=== PATIENT | female | born 1925 | race Caucasian/White ===

== ENCOUNTER 2017-02-03 11:00 | Inpatient (IN) ==
--- OUTSIDE RECORDS SUMMARY | 2017-02-03 11:21 | External Medical Summary | Summary of Care ---
:1925 Author Name Richard Guardado M.D. Address Unavailable Unavailable , Care Team Providers Name Role Phone Debby Jade, Richard Unavailable Unavailable Elizabeth Woodard M.D. Unavailable Unavailable Luly Sandoval M.D. Unavailable Unavailable [place]lette, Richard Unavailable Unavailable Unavailable Unavailable Unavailable Functional Status Functional Status Health Issues Name Dates Details Functional status health issues are not documented Status: Cognitive Status Health Issues Name Dates Details Cognitive status health issues are not documented Status: Problems Name Dates Details Fainting (780.2, R55) Status: Active Transient ischemic attack (435.9, G45.9) Status: Active Callus (700, L84) Status: Active EP (epilepsy) (345.90, G40.909) Status: Active Squamous cell carcinoma of skin of cheek (173.32, C44.329) Status: Active Actinic keratosis (702.0, L57.0) Status: Active Stomach pain (536.8, R10.9) Status: Active Hypertension (401.9, I10) Status: Active Osteoporosis (733.00, M81.0) Status: Active Glaucoma (365.9, H40.9) Status: Active Macular degeneration (362.50, H35.30) Status: Active Bowel movement symptom (787.99, R19.8) Status: Active Nausea (787.02, R11.0) Status: Active Acute leg pain, right (729.5, M79.604) Status: Active Thoracic spine pain (724.1, M54.6) Status: Active Low back pain (724.2, M54.5) Status: Active Radiculopathy (729.2, M54.10) Status: Active Ruptured sebaceous cyst (706.2, L72.0) Status: Active Dyslipidemia (272.4, E78.5) Status: Active Seborrheic keratosis (702.19, L82.1) Status: Active Epidermal inclusion cyst (706.2, L72.0) Status: Active Diarrhea (787.91, R19.7) Status: Active Insomnia (780.52, G47.00) Status: Active 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 Quantity: 30 Refills: 6 Richard Guardado M.D. Start 12-Aug-2011 Active Aspirin 81 MG TABS TAKE 1 TABLET DAILY. Refills: 0 Start 12-Aug-2011 Active LevETIRAcetam 500 MG Oral Tablet TAKE 1 TABLET BY MOUTH TWICE DAILY MUST MAKE APPT TO GET MORE REFILLS Quantity: 60 Refills: 0 Charlie Woodard M.D. Start 11-Feb-2016 Active Melatonin 1 MG Oral Tablet TAKE DIRECTED. Refills: 0 Start 11-Jun-2012 Active Tylenol Extra Strength 500 MG Oral Tablet TAKE 1 TABLET EVERY 4 TO 6 HOURS NEEDED. Refills: 0 Start 11-Jun-2012 Active B-12 500 MCG Oral Tablet Refills: 0 Start 01-Aug-2013 Active Multivitamins Oral Capsule TAKE 1 CAPSULE DAILY. Refills: 0 Start 01-Aug-2013 Active Calcium + D 500-1000-40 MG-UNT-MCG Oral Tablet Chewable Refills: 0 Start 01-Aug-2013 Active Metoprolol Succinate ER 25 MG Oral Tablet Extended Release 24 Hour TAKE 1 TABLET BY MOUTH EVERY NIGHT AT BEDTIME Quantity: 30 Refills: 11 Richard Guardado M.D. Start 22-Feb-2016 Active Prolia 60 MG/ML Subcutaneous Solution INJECT SUBCUTANEOUSLY 60 MG / 1 ML EVERY 6 MONTHS Quantity: 1 Refills: 0 Debby Villa.Indigo., Richard Start Active Clopidogrel Bisulfate 75 MG Oral Tablet TAKE 1 TABLET DAILY. Quantity: 30 Refills: 6 Debby M.D., Richard Start 01-Jan-2016 Active Sulfamethoxazole-Trimethoprim 800-160 MG Oral Tablet TAKE 1 TABLET TWICE DAILY UNTIL FINISHED. Quantity: 14 Refills: 0 Lori Jade, Dale S Start 01-Jan-2016 Active Meloxicam 7.5 MG Oral Tablet TAKE 1 TABLET DAILY WITH FOOD. Quantity: 30 Refills: 1 Debby M.D., Richard Start 14-Feb-2016 Active Allergies and Adverse Reactions Name Dates Details Amoxicillin TABS (Allergy) Status: Active codeine (Allergy) Status: Active Contrast Media Ready-Box MISC (Allergy) Status: Active promethazine (Allergy) Status: Active Past Medical History Name Dates Details Glaucoma (365.9, H40.9) Status: Active Hypertension (401.9, I10) Status: Active Macular degeneration (362.50, H35.30) Status: Active Osteoporosis (733.00, M81.0) Status: Active History of cardiac disorder (V12.50, Z86.79) Status: Resolved History of deep venous thrombosis (V12.51, Z86.718) Status: Resolved History of Dementia (294.20, F03.90) Status: Resolved History of Diverticulosis (562.10, K57.90) Status: Resolved History of Fracture of metatarsal, closed (825.25, S92.309A) Status: Resolved History of hypothyroidism (V12.29, Z86.39) Status: Resolved History of iron deficiency anemia (V12.3, Z86.2) Status: Resolved History of skin cancer (V10.83, Z85.828) Status: Resolved History of stroke (V12.54, Z86.73) Status: Resolved History of syncope (V15.89, Z87.898) Status: Resolved History of transient cerebral ischemia (V12.54, Z86.73) Status: Resolved Procedures Procedure Dates Details History of Hysterectomy History of Percutaneous Vertebral Augmentation Kyphoplasty History of Removal Of Tubal Procedures not documented Immunization Name Dates Details Immunizations not documented Family History natural son Name Dates Details Family history of Diabetes type 2, controlled (250.00, E11.9) Status: Active great grandmother Name Dates Details Family history of malignant neoplasm of breast (V16.3, Z80.3) Status: Active Mother Name Dates Details Family history of transient ischemic attacks (V17.1, Z82.3) Status: Active Family history of goiter (V18.19, Z83.49) Status: Active Father Name Dates Details Family history of myocardial infarction (V17.3, Z82.49) Status: Active Sister Name Dates Details Family history of Colon cancer (153.9, C18.9) Status: Active Brother Name Dates Details Family history of cerebrovascular disorder (V17.1, Z82.49) Status: Active Family history of peripheral vascular disease (V17.49, Z82.49) Status: Active Social History Name Dates Details - Status: Smoking Status Name Dates Details Unknown if ever smoked Vital Signs Date Test Result Details 14-Feb-2016 14:23 BP Systolic 122 mm[Hg] Status: Comments: Location: RUE; Position: Sitting BP Diastolic 58 mm[Hg] Status: Comments: Location: RUE; Position: Sitting Temperature 97.7 f Status: Comments: Method: Tympanic Heart Rate 43 /min Status: Comments: Location: ; Physical Findings 99 Status: Comments: O2 Saturation Results Date Description Value Details Results not documented Plan of Care Name Dates Details Planned Observations Planned Goals not documented Planned Encounters Appointment; Provider: Mirella Kidd M.D. On 29-Jul-2016 13:30 Appointment; Provider: Dale Sandoval M.D. On 16-May-2016 10:30 Interventions Provided Medication ChangesMetoprolol Succinate ER 25 MG Oral Tablet Extended Release 24 Hour - Renew Instructions Name Dates Details Instructions not documented Encounters Appointment; Richard Guardado M.D. On 14-Feb-2016 Encounter Diagnosis: Problem not documented 14:15 Appointment; Dale Sandoval M.D. On 18-Jan-2016 Encounter Diagnosis: Problem not documented 09:45 Appointment; Mirella Kidd M.D. On 01-Jan-2016 Encounter Diagnosis: Problem not documented 16:00 Appointment; Richard Guardado M.D. On 25-Dec-2015 Encounter Diagnosis: Problem not documented 16:15 Appointment; Mirella Kidd M.D. On 07-Dec-2015 Encounter Diagnosis: Problem not documented 08:45 Appointment; Omar Castro M.D. On 30-Nov-2015 Encounter Diagnosis: Problem not documented 13:45 Appointment; Richard Guardado M.D. On 23-Nov-2015 Encounter Diagnosis: Problem not documented 11:30 Appointment; Omar Castro M.D. On Encounter Diagnosis: Problem not documented 11:30 Appointment; Wili, Daniel On Encounter Diagnosis: Problem not documented 11:00 Appointment; Richard Guardado M.D. On Encounter Diagnosis: Problem not documented 14:45 Appointment; Dale Sandoval M.D. On Encounter Diagnosis: Problem not documented 10:30 Appointment; Omar Castro M.D. On Encounter Diagnosis: Problem not documented 15:00 Appointment; Dane Guardado M.D. On Encounter Diagnosis: Problem not documented 14:00 Appointment; Richard Guardado M.D. On Encounter Diagnosis: Problem not documented 14:45 Appointment; Richard Guardado M.D. On Encounter Diagnosis: Problem not documented 14:15 Appointment; Richard Guardado M.D. On 20-Aug-2015 Encounter Diagnosis: Problem not documented 15:15 Appointment; Dale Sandoval M.D. On 04-May-2015 Encounter Diagnosis: Problem not documented 09:00 Appointment; Dale Sandoval M.D. On Encounter Diagnosis: Problem not documented 18:30 Appointment; Dale Sandoval M.D. On Encounter Diagnosis: Problem not documented 08:30
--- OUTSIDE RECORDS SUMMARY | 2017-02-03 11:21 | External Medical Summary | Summary of Care ---
:1925 Author Name Richard Guardado M.D. Address Unavailable Unavailable , Care Team Providers Name Role Phone Debby Jade, Richard Unavailable Unavailable Elizabeth Woodard M.D. Unavailable Unavailable RalphRichard cui Primary Care Provider Unavailable Unavailable Unavailable Unavailable Functional Status Functional [...] Status: Active Osteoporosis (733.00, M81.0) Status: Active Macular degeneration (362.50, H35.30) Status: Active Glaucoma (365.9, H40.9) Status: Active Bowel movement symptom (787.99, R19.8) Status: Active Nausea (787.02, R11.0) Status: Active Acute leg pain, right (729.5, M79.604) Status: Active Thoracic spine pain (724.1, M54.6) Status: Active Low back pain (724.2, M54.5) Status: Active Radiculopathy (729.2, M54.10) Status: Active Ruptured Sebaceous Cyst (706.2, L72.0) Status: Active Abdominal pain (789.00, R10.9) Status: Active Dyslipidemia (272.4, E78.5) Status: Active Seborrheic keratosis (702.19, L82.1) Status: Active Epidermal inclusion cyst (706.2, L72.0) Status: Active Medications Name Dates Details Lovastatin 40 MG Oral Tablet TAKE 1 TABLET AT BEDTIME. Quantity: 90 Refills: 3 Richard Guardado M.D. Started 12-Aug-2011 ActiveAspirin 81 MG TABS TAKE 1 TABLET DAILY. Refills: 0 Started 12-Aug-2011 ActiveLevETIRAcetam 500 MG Oral Tablet TAKE 1 TABLET BY MOUTH TWICE DAILYABSOLUTELY MUST MAKE AN APPOINTMENT Quantity: 30 Refills: 0 Charlie Woodard M.D. Started ActiveLopressor 50 MG Oral Tablet Take 1/2 tab daily Refills: 0 Started 11-Jun-2012 ActiveMelatonin 1 MG Oral Tablet TAKE DIRECTED. Refills: 0 Started 11-Jun-2012 ActiveTylenol Extra Strength 500 MG Oral Tablet TAKE 1 TABLET EVERY 4 TO 6 HOURS NEEDED. Refills: 0 Started 11-Jun-2012 ActiveB-12 500 MCG Oral Tablet Refills: 0 Started 01-Aug-2013 ActiveMultivitamins Oral Capsule TAKE 1 CAPSULE DAILY. Refills: 0 Started 01-Aug-2013 ActiveCalcium + D 500-1000-40 MG-UNT-MCG Oral Tablet Chewable Refills: 0 Started 01-Aug-2013 ActiveMetoprolol Succinate ER 25 MG Oral Tablet Extended Release 24 Hour TAKE 1 TABLET DAILY. Refills: 0 Richard Guardado M.D. Started 20-Aug-2015 ActiveProlia 60 MG/ML Subcutaneous Solution INJECT SUBCUTANEOUSLY 60 MG / 1 ML EVERY 6 MONTHS Quantity: 1 Refills: 0 Richard Guardado M.D. Started Active Allergies and Adverse Reactions Name Dates Details Amoxicillin TABS Status: Active codeine Status: Active Contrast Media Ready-Box MISC Status: Active Past Medical History Name Dates [...] Augmentation Kyphoplasty History of Removal Of Tubal Upper Endoscopy ( EGD) Ordered: Immunization Name Dates Details Immunizations not documented [...] Status: Active Social History Name Dates Details Smoking StatusUnknown if ever smoked Vital Signs Date Test Result Details 14:02 BP Systolic 132 mm[Hg] Status: BP Diastolic 60 mm[Hg] Status: Temperature 97.9 f Status: Heart Rate 69 /min Status: Weight 117 lb Status: O2 SAT 93 % Status: Body Mass Index Calculated 22.85 kg/m2 Status: Body Surface Area Calculated 1.49 m2 Status: 15:21 BP Systolic 135 mm[Hg] Status: BP Diastolic 62 mm[Hg] Status: Heart Rate 117 /min Status: Height 60 in Status: Weight 117 lb Status: Body Mass Index Calculated 22.85 kg/m2 Status: Body Surface Area Calculated 1.49 m2 Status: 14:15 BP Systolic 118 mm[Hg] Status: BP Diastolic 62 mm[Hg] Status: Temperature 97 f Status: Heart Rate 65 /min Status: Weight 118 lb Status: O2 SAT 98 % Status: Body Mass Index Calculated 23.05 kg/m2 Status: Body Surface Area Calculated 1.49 m2 Status: 14:50 BP Systolic 104 mm[Hg] Status: BP Diastolic 60 mm[Hg] Status: Temperature 97.6 f Status: Heart Rate 65 /min Status: Weight 118 lb Status: O2 SAT 99 % Status: Body Mass Index Calculated 23.05 kg/m2 Status: Body Surface Area Calculated 1.49 m2 Status: Results Date Description Value Details Results not documented Plan of Care Planned Observations Name Dates Details Planned Goals not documented Goal Planned Encounters Appointment; Provider: Dale Sandoval On 16-May-2016 10:30 Appointment; Provider: Omar Castro On 11:30 Appointment; Provider: Daniel Rasheed On 11:00 Appointment; Provider: Roe Sharma On 25-Jun-2011 12:00 Instructions Instructions not documented Encounters Appointment; Richard Guardado On Encounter Diagnosis: Problem not documented 14:45 Appointment; Dale Sandoval On Encounter Diagnosis: Problem not documented 10:30 Appointment; Omar Castro On Encounter Diagnosis: Problem not documented 15:00 Appointment; Dane Guardado On Encounter Diagnosis: Problem not documented 14:00 Appointment; Richard Guardado On Encounter Diagnosis: Problem not documented 14:45 Appointment; Richard Guardado On Encounter Diagnosis: Problem not documented 14:15 Appointment; Richard Guardado On 20-Aug-2015 Encounter Diagnosis: Problem not documented 15:15 Appointment; Dale Sandoval On 04-May-2015 Encounter Diagnosis: Problem not documented 09:00 Appointment; Dale Sandoval On Encounter Diagnosis: Problem not documented 18:30 Appointment; Dale Sandoval On Encounter Diagnosis: Problem not documented 08:30
--- OUTSIDE RECORDS SUMMARY | 2017-02-03 11:21 | External Medical Summary | Summary of Care ---
:1925 Author Name Richard Guardado M.D. Address Unavailable Unavailable , Care Team Providers Name Role Phone Debby Jade, Richard Unavailable Unavailable Elizabeth Woodard M.D. Unavailable Unavailable Luly Sandoval M.D. Unavailable Unavailable Mcclain, Richard Unavailable Unavailable Unavailable Unavailable Unavailable Functional [...] of buttock, left (682.5, L02.31) Status: Active Medications Name Dates Details Lovastatin 40 MG Oral Tablet TAKE 1 TABLET AT BEDTIME. Quantity: 30 Refills: 6 Richard Guardado M.D. Start 12-Aug-2011 Active Aspirin 81 MG TABS TAKE 1 TABLET DAILY. Refills: 0 Start 12-Aug-2011 Active LevETIRAcetam 500 MG Oral Tablet TAKE 1 TABLET BY MOUTH TWICE DAILYABSOLUTELY MUST MAKE AN APPOINTMENT Quantity: 30 Refills: 0 Charlie Woodard M.D. Start Active Melatonin 1 MG Oral Tablet TAKE [...] TABLET DAILY. Refills: 0 Richard Guardado M.D. Start 20-Aug-2015 Active Prolia 60 MG/ML Subcutaneous Solution INJECT SUBCUTANEOUSLY 60 MG / 1 ML EVERY 6 MONTHS Quantity: 1 Refills: 0 Richard Guardado M.D. Start Active Clopidogrel Bisulfate 75 MG Oral Tablet TAKE 1 TABLET DAILY. Quantity: 30 Refills: 6 Richard Guardado M.D. Start 01-Jan-2016 Active Sulfamethoxazole-Trimethoprim 800-160 MG Oral Tablet TAKE 1 TABLET TWICE DAILY UNTIL FINISHED. Quantity: 14 Refills: 0 Lori Jade, Dale Mauricio Start 01-Jan-2016 Active Allergies and Adverse Reactions Name Dates [...] Augmentation Kyphoplasty History of Removal Of Tubal CP Echo Ordered: 07-Dec-2015 [facility] (outside facility) Ordered: 11-Dec-2015 Immunization Name Dates Details Immunizations not documented [...] smoked Vital Signs Date Test Result Details 01-Jan-2016 16:02 BP Systolic 108 mm[Hg] Status: Comments: Location: LUE; Position: Sitting BP Diastolic 58 mm[Hg] Status: Comments: Location: LUE; Position: Sitting Heart Rate 76 /min Status: Comments: Location: ; Weight 113.5 lb Status: Body Mass Index Calculated 22.17 kg/m2 Status: Body Surface Area Calculated 1.47 m2 Status: 25-Dec-2015 16:17 BP Systolic 110 mm[Hg] Status: Comments: Location: ; Position: BP Diastolic 64 mm[Hg] Status: Comments: Location: ; Position: Temperature 97.5 f Status: Heart Rate 74 /min Status: Comments: Location: ; Weight 116 lb Status: Physical Findings 99 Status: Comments: O2 Saturation Body Mass Index Calculated 22.66 kg/m2 Status: Body Surface Area Calculated 1.48 m2 Status: Results Date Description Value Details Results not documented Plan of Care Name Dates Details Planned Observations Planned Goals not documented Planned Encounters Appointment; Provider: Mirella Kidd M.D. On 29-Jul-2016 13:30 Appointment; Provider: Dale Sandoval M.D. On 16-May-2016 10:30 Interventions Provided Medication ChangesClindamycin HCl - 150 MG Oral Capsule - Start Instructions Name Dates Details Instructions not documented Encounters Appointment; Mirella Kidd M.D. On 07-Dec-2015 Encounter Diagnosis: Problem not documented 08:45 Appointment; Omar Castro M.D. On 30-Nov-2015 Encounter Diagnosis: Problem not documented 13:45 Appointment; Richard Guardado M.D. On 23-Nov-2015 Encounter Diagnosis: Problem not documented 11:30 Appointment; Omar Castro M.D. On Encounter Diagnosis: Problem not documented 11:30 Appointment; Daniel Rasheed On Encounter Diagnosis: Problem not documented 11:00 [...]
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
--- OUTSIDE RECORDS SUMMARY | 2017-02-03 11:22 | External Medical Summary | Summary of Care ---
:1925 Author Name Matthew Jade, Omar Address Unavailable Unavailable , Care Team Providers Name Role Phone Matthew Jade, Omar Unavailable Unavailable Richard Guardado M.D. Unavailable Unavailable Elizabeth Woodard M.D. 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 Start Active Lopressor 50 MG Oral Tablet Take 1/2 tab daily Refills: 0 Start 11-Jun-2012 Active Melatonin 1 MG Oral Tablet TAKE [...] Refills: 0 Richard Guardado M.D. Start Active Silenor 3 MG Oral Tablet TAKE 1 TABLET Bedtime Quantity: 8 Refills: 0 Richard Guardado M.D. Start 23-Nov-2015 Active Allergies and Adverse Reactions Name Dates Details Amoxicillin TABS (Allergy) Status: Active codeine (Allergy) Status: Active Contrast Media Ready-Box MISC (Allergy) Status: Active Past Medical History Name [...] Augmentation Kyphoplasty History of Removal Of Tubal GASTRIC EMPTYING Ordered: CT ABDOMEN WITH ORAL AND WITHOUT IV CONTRAST Ordered: Immunization Name Dates Details Immunizations not [...] smoked Vital Signs Date Test Result Details 30-Nov-2015 14:04 BP Systolic 154 mm[Hg] Status: Comments: Location: LUE; Position: Standing BP Diastolic 73 mm[Hg] Status: Comments: Location: LUE; Position: Standing Heart Rate 77 /min Status: Comments: Location: ; Physical Findings 16 Status: Comments: Respiration Height 60 in Status: Weight 112 lb Status: Body Mass Index Calculated 21.87 kg/m2 Status: Body Surface Area Calculated 1.46 m2 Status: 23-Nov-2015 11:24 BP Systolic 128 mm[Hg] Status: Comments: Location: RUE; Position: Sitting BP Diastolic 70 mm[Hg] Status: Comments: Location: RUE; Position: Sitting Temperature 97.8 f Status: Comments: Method: Oral Heart Rate 66 /min Status: Comments: Location: ; Weight 115 lb Status: Physical Findings 95 Status: Comments: O2 Saturation Body Mass Index Calculated 22.46 kg/m2 Status: Body Surface Area Calculated 1.48 m2 Status: 14:02 BP Systolic 132 mm[Hg] Status: Comments: Location: ; Position: BP Diastolic 60 mm[Hg] Status: Comments: Location: ; Position: Temperature 97.9 f Status: Heart Rate 69 /min Status: Comments: Location: ; Weight 117 lb Status: Physical Findings 93 Status: Comments: O2 Saturation Body Mass Index Calculated 22.85 kg/m2 Status: Body Surface Area Calculated 1.49 m2 Status: Results Date Description Value Details 14-Nov-2015 12:34 CT AB/ PEL WITHOUT IV AND WITH Comments: Exam Date: 2015 11:14Dictation Date: 11/14/2015 12:34 ORAL CONTRAST XC AB/PEL W/O IV 19-Nov-2015 08:32 BASIC METABOLIC PROFILE 1210 SODIUM 140 POTASSIUM 4.0 BUN 7 CREATININE, SERUM 0.80 GLUCOSE 91 CALCIUM 8.3 Plan of Care Name Dates Details Planned Observations Planned Goals not documented Planned Encounters Appointment; Provider: Dale Sandoval M.D. On 16-May-2016 10:30 Instructions Name Dates Details Instructions not documented Encounters Appointment; Richard Guardado M.D. On 23-Nov-2015 Encounter [...]
--- OUTSIDE RECORDS SUMMARY | 2017-02-03 11:22 | External Medical Summary | Summary of Care ---
:1925 Author Name Richard Guardado M.D. Address Unavailable Unavailable , Care Team Providers Name Role Phone Richard Guardado M.D. Unavailable Unavailable Elizabeth Woodard M.D. 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, C44.329) Status: Active Actinic keratosis (702.0, L57.0) Status: Active Epidermal inclusion cyst (706.2, L72.0) Status: Active Stomach pain (536.8, R10.9) Status: Active Hypertension (401.9, I10) Status: Active Osteoporosis (733.00, M81.0) Status: Active Glaucoma (365.9, H40.9) Status: Active Macular degeneration (362.50, H35.30) Status: Active Bowel movement symptom (787.99, R19.8) Status: Active Nausea (787.02, R11.0) Status: Active Acute leg pain, right (729.5, M79.604) Status: Active Abdominal pain (789.00, R10.9) Status: Active Low back pain (724.2, M54.5) Status: Active Thoracic spine pain (724.1, M54.6) Status: Active Medications Name Dates Details Lovastatin 40 MG Oral Tablet TAKE 1 TABLET AT BEDTIME. Quantity: 90 Refills: 3 Started -Aug-2011 ActiveAspirin 81 MG TABS TAKE 1 TABLET [...] 6 HOURS NEEDED. Refills: 0 Started 11-Jun-2012 ActiveOmeprazole 20 MG Oral Capsule Delayed Release TAKE 1 CAPSULE DAILY. Refills: 0 Started 01-Aug-2013 ActiveB-12 500 MCG Oral Tablet Refills: 0 Started 01-Aug-2013 ActiveMultivitamins Oral Capsule TAKE 1 CAPSULE DAILY. Refills: 0 Started 01-Aug-2013 ActiveCalcium + D 500-1000-40 MG-UNT-MCG Oral Tablet Chewable Refills: 0 Started 01-Aug-2013 ActiveMetoprolol Succinate ER 25 MG Oral Tablet Extended Release 24 Hour TAKE 1 TABLET DAILY. Refills: 0 Richard Guardado M.D. Started 20-Aug-2015 ActivePromethazine HCl - 25 MG Oral Tablet TAKE 1 TABLET EVERY 4 TO 6 HOURS NEEDED FOR NAUSEA. Quantity: 60 Refills: 2 Richard Guardado M.D. Started 28-Aug-2015 ActiveSucralfate 1 GM Oral Tablet TAKE 1 TABLET 4 TIMES DAILY, BEFORE MEALS AND AT BEDTIME. Quantity: 120 Refills: 2 Richard Guardado M.D. Started ActiveProlia 60 MG/ML Subcutaneous Solution INJECT SUBCUTANEOUSLY [...] smoked Vital Signs Date Test Result Details 14:50 BP Systolic 104 mm[Hg] Status: BP Diastolic 60 mm[Hg] Status: Temperature 97.6 f Status: Heart Rate 65 /min Status: Weight 118 lb Status: O2 SAT 99 % Status: Body Mass Index Calculated 23.05 kg/m2 Status: Body Surface Area Calculated 1.49 m2 Status: 14:32 BP Systolic 118 mm[Hg] Status: BP Diastolic 56 mm[Hg] Status: Temperature 96.9 f Status: Heart Rate 68 /min Status: Weight 119 lb Status: O2 SAT 93 % Status: Body Mass Index Calculated 23.24 kg/m2 Status: Body Surface Area Calculated 1.5 m2 Status: Results Date Description Value Details 11-Sep-2015 08:24 BASIC METABOLIC PROFILE 1210 SODIUM 131 (Better) POTASSIUM 3.9 (Better) BUN 9 (Better) CREATININE, SERUM 0.68 (Better) GLUCOSE 104 (Better) CALCIUM 8.5 (Better) Plan of Care Planned Observations Name Dates Details Planned Goals not documented Goal Planned Encounters Appointment; Provider: Dale Sandoval On 10:30 Appointment; Provider: Omar Castro On 15:00 Appointment; Provider: Roe Sharma On 25-Jun-2011 12:00 [...]
--- OUTSIDE RECORDS SUMMARY | 2017-02-03 11:22 | External Medical Summary | Summary of Care ---
:1925 Author Name Richard Guardado M.D. Address Unavailable Unavailable , Care Team Providers Name Role Phone Richard Guardado M.D. Unavailable Unavailable Elizabeth Woodard M.D. Unavailable Unavailable [place] cui Primary Care Provider Unavailable Unavailable Unavailable [...] Status: Active Dyslipidemia (272.4, E78.5) Status: Active Medications Name Dates Details Lovastatin [...] smoked Vital Signs Date Test Result Details 15:21 BP Systolic 135 mm[Hg] Status: BP [...] not documented Goal Planned Encounters Appointment; Provider: Omar Castro On 11:30 Appointment; Provider: Daniel Rasheed On 11:00 Appointment; Provider: Dale Sandoval On 10:30 Appointment; Provider: Roe Sharma On 25-Jun-2011 12:00 Instructions Instructions not documented Encounters Appointment; Omar Castro On Encounter Diagnosis: Problem [...]
--- OUTSIDE RECORDS SUMMARY | 2017-02-03 11:22 | External Medical Summary | Summary of Care ---
[...] Ruptured Sebaceous Cyst (706.2, L72.0) Status: Active Dyslipidemia (272.4, E78.5) Status: Active Seborrheic keratosis (702.19, L82.1) Status: Active Epidermal inclusion cyst (706.2, L72.0) Status: Active Abdominal pain (789.00, R10.9) Status: Active Medications Name Dates Details Lovastatin 40 MG Oral Tablet TAKE 1 TABLET AT BEDTIME. Quantity: 90 Refills: 3 Richard Guardado M.D. Start 12-Aug-2011 Active Aspirin [...] Refills: 0 Richard Guardado M.D. Start Active Allergies and Adverse Reactions Name Dates [...] of Removal Of Tubal GASTRIC EMPTYING Ordered: Immunization Name Dates Details Immunizations not [...] Details 14:02 BP Systolic 132 mm[Hg] Status: Comments: Location: LUE; Position: Sitting BP Diastolic 60 mm[Hg] Status: Comments: Location: LUE; Position: Sitting Temperature 97.9 f Status: Comments: Method: Heart Rate 69 /min Status: Comments: Location: ; Weight 117 lb Status: Physical Findings 93 Status: Comments: O2 Saturation Body Mass Index Calculated 22.85 kg/m2 Status: Body Surface Area Calculated 1.49 m2 Status: 15:21 BP Systolic 135 mm[Hg] Status: Comments: Location: ; Position: BP Diastolic 62 mm[Hg] Status: Comments: Location: ; Position: Heart Rate 117 /min Status: Comments: Location: ; Height 60 in Status: Weight 117 lb Status: Body Mass Index Calculated 22.85 kg/m2 Status: Body Surface Area Calculated 1.49 m2 Status: 14:15 BP Systolic 118 mm[Hg] Status: Comments: Location: ; Position: BP Diastolic 62 mm[Hg] Status: Comments: Location: ; Position: Temperature 97 f Status: Heart Rate 65 /min Status: Comments: Location: ; Weight 118 lb Status: Physical Findings 98 Status: Comments: O2 Saturation Body Mass Index Calculated 23.05 kg/m2 Status: Body Surface Area Calculated 1.49 m2 Status: 14:50 BP Systolic 104 mm[Hg] Status: Comments: Location: LUE; Position: Standing BP Diastolic 60 mm[Hg] Status: Comments: Location: LUE; Position: Standing Temperature 97.6 f Status: Comments: Method: Tympanic Heart Rate 65 /min Status: Comments: Location: ; Weight 118 lb Status: Physical Findings 99 Status: Comments: O2 Saturation Body Mass Index Calculated 23.05 kg/m2 Status: Body Surface Area Calculated 1.49 m2 Status: Results Date Description Value Details Results not documented Plan of Care Name Dates Details Planned Observations Planned Goals not documented Planned Encounters Appointment; Provider: Dale Sandoval M.D. On 16-May-2016 10:30 Interventions Provided Labs/Procedures/ImagingGASTRIC EMPTYING; To be Done: 06 Nov 2015Upper Endoscopy ( EGD); Done: 06 Nov 2015 Instructions Name Dates Details Instructions not documented Encounters Appointment; Daniel Rasheed On Encounter Diagnosis: Problem [...]
--- OUTSIDE RECORDS SUMMARY | 2017-02-03 11:22 | External Medical Summary | Summary of Care ---
:1925 Author Name Richard Guardado M.D. Address [address] [place], [place] [id number] Care Team Providers Name Role Phone Richard Guardado M.D. Unavailable Unavailable Elizabeth Woodard M.D. Unavailable Unavailable Richard Guardaod Primary Care Provider Unavailable Unavailable Unavailable Unavailable [...] AT BEDTIME. Quantity: 90 Refills: 3 Started 12-Aug-2011 ActiveAspirin 81 MG TABS TAKE 1 TABLET DAILY. Refills: 0 Started -Aug-2011 ActiveLevETIRAcetam 500 MG Oral Tablet TAKE 1 [...] 120 Refills: 2 Richard Guardado M.D. Started Active Allergies and [...] smoked Vital Signs Date Test Result Details 14:32 BP Systolic 118 mm[Hg] Status: BP [...]
--- OUTSIDE RECORDS SUMMARY | 2017-02-03 11:22 | External Medical Summary | Continuity of Care Document ---
:1925 Author Organization [facility] LIVE [facility] Care Team Providers Name Role Phone LY ROLAND MD Unavailable Unavailable Insurance Providers Payer Name Policy Number Subscriber Name Relationship Medicare A And B [id number] Kaci Gusman 18 Self / Same As Patient [facility] [id number] Kaci Gusman 18 Self / Same As Patient Chief Complaint and Reason for Visit Chief Complaint OBSERVATION FX LEFT FOOT Reason for Visit Fracture of metatarsal of left foot, closed Injury of foot Fall Risk for falls Fracture of fifth metatarsal bone of left foot Physical deconditioning Problems Medical Problems Problem Onset Date Status Gastrointestinal hemorrhage 12/30/2011 Resolved Altered mental status 05/06/2012 Resolved Anxiety 05/06/2012 Active Neck pain 05/29/2013 Resolved Abdominal pain ~04/2013 Resolved Abdominal pain ~06/27/2013 Resolved Seizure disorder ~07/16/2013 Active Generalized anxiety disorder ~07/16/2013 Active Hypothyroidism ~07/16/2013 Active Fracture of metatarsal of left foot, closed ~11/02/2014 Active Injury of foot ~11/01/2014 Active Fall ~11/01/2014 Active Risk for falls Unknown Active Fracture of fifth metatarsal bone of left foot 11/02/2014 Active Physical deconditioning 11/05/2014 Active Medications Medication Dose Route Sig Days/Qty Instructions Order Discontinued Status Date Date Aspirin 81 Mg ORAL DAILY 05/12/12 Discontinue 12 d Lovastatin 40 Mg ORAL DAILY 09/18/ 01/30/13 Discontinue 12 d Alendronate 5 Mg ORAL DAILY 05/12/12 Discontinue Sodium 12 d Quetiapine 25 Mg ORAL BEDTIME 05/12/12 Discontinue Fumarate PRN 12 d Acetaminophen 500 ORAL EVERY 12/31/ 07/16/13 Discontinue Mg 4HRS PRN 12 d Ciprofloxacin 1 Tab ORAL TWICE A 05/12/12 Discontinue DAY 12 d Levetiracetam 250 ORAL TWICE A 11/02/14 Discontinue Mg DAY 12 d Metoprolol 25 Mg ORAL DAILY 05/12/12 Discontinue Succinate 12 d Metronidazole 250 ORAL THREE 05/12/12 Discontinue Mg TIMES A 12 d DAY Famotidine 05/12/12 Discontinue 13 d Hydroxyzine 05/12/12 Discontinue HCl 13 d Sucralfate 05/12/12 Discontinue (Carafate) 13 d Lovastatin 40 Mg ORAL BEDTIME 13 Metoprolol 25 Mg ORAL TWICE A 05/12/ Tartrate DAY 13 Aspirin 81 Mg ORAL DAILY 14 Tramadol Hcl 50 Mg ORAL q4-6 hrs 10 Qty 05/29/ 06/27/13 Discontinue PRN 14 d Omeprazole 20 Mg ORAL TWICE A 06/24/ DAY 14 Cephalexin 500 ORAL THREE 06/24/ 07/16/13 Discontinue Mg TIMES A 14 d DAY Sucralfate 1 Gm ORAL FOUR 06/24/ 07/16/13 Discontinue (Carafate) TIMES 14 d DAILY Tramadol Hcl 1-2 ORAL q6 hrs 20 Qty 06/29/ 07/16/13 Discontinue Tab.s PRN PAIN 14 d a [Calcium + Vit 1 Tab ORAL DAILY @ 07/16/ Active D3] 0800 14 Melatonin 600 ORAL BEDTIME 11/02/14 Discontinue Mcg 14 d [Osteoporosis 70 Mg ORAL WEEKLY 07/16/ 11/02/14 Discontinue Med] 14 d Levetiracetam 500 ORAL TWICE A 11/02/ Active Mg DAY 15 Melatonin/Pyri 1 ORAL BEDTIME 11/02/ Active doxine Hcl Each 15 (B6) Docusate 100 ORAL DAILY 11/02/ Active Sodium Mg 15 Multivitamin 1 ORAL DAILY 11/02/ Active Each 15 Acetaminophen/ 0.5 ORAL EVERY 6 20 Qty 11/06/ Active Hydrocodone Tab HOURS 15 Bitart PRN PAIN Social History No social history. Hospital Discharge Instructions Patient's Instructions Instructions Instructions Continue medications as prescribed You will see Dr Roland in the office tomorrow am - at 10:30 Dr Roland to set up appointment with orthopedic doctor Activity Instructions as tolerates- wear your boot and use the walker Doctor's Appointment You have appointment ThursdayNovember 07 at 10:[address] Roland Discharge Diet: Regular Plan of Care Discharge Date 11/06/14 2:17pm Disposition 01 HOME OR SELF-CARE Instructions/Education Provided Hydrocodone/Acetaminophen (By mouth) Prescriptions See Medications Section Referrals LY ROLAND MD ([facility]) Within 1 week Address: [address] [place] [phone] [facility] (Community [facility]) Within 1 week Address: [address] [place] [address] [facility] ([facility] Resource) Within 1 week Address: [address] [place] [address] LY ROLAND MD ([facility]) Address: [address] [place] [phone] Functional Status No functional status results. Allergies, Adverse Reactions, Alerts Allergen Type Severity Reaction Status Last Updated Iodinated Contrast Allergy Severe Rash, face turned Active 11/02/14 Media - IV Dye completely red. Penicillin Allergy Unknown Active 06/29/13 Codeine Adverse Reaction Unknown FALL Active 07/16/13 Amoxicillin Allergy Unknown Active 06/29/13 oxacillin Allergy Severe Hives and rash Active 11/02/14 Immunizations No immunization records. Vital Signs Acute Vital Signs Vital Response Date/Time Temperature (Fahrenheit) 97.3 Pulse 60 bpm Respirations 16 Height 4 ft 9 in Weight 124 lb Body Mass Index 26.8 kg/m^2 Results Test Source Date Result Interp. Ref. Range Comments Activated Partial May 30.3 SEC N 25.0-39.0 Collected by Thromboplast Time 2013 nurse? N 5:45am Alanine November 03, 24 U/L L 30-65 Collected by Aminotransferase 2014 5:55am nurse? N (ALT/SGPT) Albumin November 03, 3.4 g/dL N 3.4-5.0 Collected by 2014 5:55am nurse? N Albumin/Globulin November 03, 1.133 N 1.1-1.8 Collected by Ratio 2014 5:55am nurse? N Alkaline November 03, 49 U/L N 38-126 Collected by Phosphatase 2014 5:55am nurse? N Anion Gap November 03, 12.4 MEQ/L N 3-15 Collected by 2014 5:55am nurse? N Arterial Blood Base May 06, 3.0 N -2.0-3.0 Excess 2012 6:30am Arterial Blood HCO3 May 06, 24.0 MEQ/L N 22.0-26.0 2012 6:30am Arterial Blood May 06, 97 % N 95-98 Oxygen Saturation 2012 6:30am Arterial Blood May 06, 23 mmHg L 35-45 Partial Pressure 2012 6:30am CO2 Arterial Blood May 06, 71 mmHg L 80-105 Partial Pressure O2 2012 6:30am Arterial Blood May 06, 24.0 YARA/L N 23.0-27.0 Total CO2 2012 6:30am Arterial Blood pH May 06, 7.63 PH 7.35-7.45 All ABG Results called to Curtiswho read back the results. 2012 6:30am Called by Lilian Fabian at 0649 Aspartate Amino November 03, 32 U/L N 15-37 Collected by Transf (AST/SGOT) 2014 5:55am nurse? N B-Type Natriuretic May 12, 114 PG/ML H 0-100 Collected by Peptide 2012 5:25am nurse? N BUN/Creatinine November 03, 18 N 10-20 Collected by Ratio 2014 5:55am nurse? N Band Neutrophils % May 06, 0 % N 0-6 2012 5:31am Basophils # (Auto) November 03, 0.0 10^3uL Collected by 2014 5:55am nurse? N Basophils % May 06, 0 % N 0-1 2012 5:31am Basophils (%) November 03, 0 % N 0-2 Collected by (Auto) 2014 5:55am nurse? N Blood Gas Puncture May 06, Right Site 2012 6:30am brachial Blood Morphology May 06, Normal NORMAL Comment 2012 5:31am Blood Urea Nitrogen November 03, 16 mg/dL N 7-18 Collected by 2014 5:55am nurse? N C-Reactive Protein June 27, 0.60 MG/DL N 0.0-0.9 Collected by 2013 7:15am nurse? N Calcium Level November 03, 8.7 mg/dL L 8.8-10.8 Collected by 2014 5:55am nurse? N Calcium/Ionized November 03, 4.1 mg/dL N 3.8-4.6 Collected by Calcium Ratio 2014 5:55am nurse? N Calculated November 03, 259 mosm/L L 280-300 Collected by Osmolality 2014 5:55am nurse? N Carbon Dioxide November 03, 26 mmol/L N 22-29 Collected by Level 2014 5:55am nurse? N Chloride Level November 03, 100 mmol/L N 98-108 Collected by 2014 5:55am nurse? N Creatine Kinase MB May 06, 3.2 NG/ML N 0.0-6.0 2012 5:31am Creatinine November 03, 0.87 mg/dL N 0.6-1.2 Collected by 2014 5:55am nurse? N Differential Total May 06, 100 Cells Counted 2012 5:31am Eosinophils # November 03, 0.1 10^3uL Collected by (Auto) 2014 5:55am nurse? N Eosinophils % May 06, 0 % N 0-5 2012 5:31am Eosinophils (%) November 03, 2 % N 0-4 Collected by (Auto) 2014 5:55am nurse? N Erythrocyte May 32 mm/hr H 0-23 Collected by Sedimentation Rate 2013 nurse? N 5:45am Estimat Glomerular November 03, 74.5 Collected by Filtration Rate 2014 5:55am nurse? N Estimated GFR November 03, 61.6 Collected by (Non- 2014 5:55am nurse? N [place] Glucose Level November 03, 93 mg/dL N 70-110 Collected by 2014 5:55am nurse? N Hematocrit November 03, 32.60 % L 35.00-45.0 Collected by 2014 5:55am 0 nurse? N Hemoglobin November 03, 11.0 g/dL L 12.0-15.5 Collected by 2014 5:55am nurse? N Influenza Virus May 06, Negative Collected by Type A Antibody 2013 nurse? N 10:10am Influenza Virus May 06, Negative Collected by Type B Antibody 2013 nurse? N 10:10am Levetiracetam June 19, 17.7 () Reference Range:12.0 - 46.0 (Keppra) Level 2015 mcg/mL Test Performed by: 11:30am [facility] - [address] [address] Cash Management Associate: Sim Tracey II, M.D., Ph.D. Lipase June 27, 130 U/L N 23-300 Collected by 2013 7:15am nurse? N Lymphocytes # November 03, 1.0 X10^3 Collected by (Auto) 2014 5:55am nurse? N Lymphocytes % May 06, 7 % L 16-34 2012 5:31am Lymphocytes (%) November 03, 20 % N 20-46 Collected by (Auto) 2014 5:55am nurse? N Mean Corpuscular November 03, 30.1 PG N 26.0-34.0 Collected by Hemoglobin 2014 5:55am nurse? N Mean Corpuscular November 03, 33.7 g/dL N 31.0-37.0 Collected by Hemoglobin Concent 2014 5:55am nurse? N Mean Corpuscular November 03, 89 FL N 80-100 Collected by Volume 2014 5:55am nurse? N Mean Platelet November 03, 12.0 FL H 6.0-9.5 Collected by Volume 2014 5:55am nurse? N Monocytes # (Auto) November 03, 0.6 X10^3 Collected by 2014 5:55am nurse? N Monocytes % May 06, 3 % N 2-12 2012 5:31am Monocytes (%) November 03, 12 % H 3-11 Collected by (Auto) 2014 5:55am nurse? N Neutrophils # November 03, 3.1 X10^3 Collected by (Auto) 2014 5:55am nurse? N Neutrophils (%) November 03, 65 % N 51-67 Collected by (Auto) 2014 5:55am nurse? N Platelet Count November 03, 158 10^3uL N 150-450 Collected by 2014 5:55am nurse? N Potassium Level November 03, 4.6 mmol/L N 3.5-5.1 Collected by 2014 5:55am nurse? N Prothromb Time May 0.9 N 0.8-1.4 Collected by International Ratio 2013 nurse? N 5:45am Prothrombin Time May 11.9 SEC L 12.3-14.4 Collected by 2013 nurse? N 5:45am Red Blood Count November 03, 3.66 L 4.00-5.00 Collected by 2014 5:55am 10^6uL nurse? N Red Cell November 03, 13.3 % N 11.8-15.6 Collected by Distribution Width 2014 5:55am nurse? N Segmented May 06, 90 % H 50-70 Neutrophils % 2012 5:31am Serum Alcohol May 06, < 10.0 L 10-80 2012 5:31am MG/DL Sodium Level November 03, 134 mmol/L L 135-150 Collected by 2014 5:55am nurse? N Thyroid Stimulating July 16, 8.15 DH 0.46-4.68 Collected by Hormone (TSH) 2013 7:22pm UIU/ML nurse? N Total Bilirubin November 03, 0.5 mg/dL DN 0.1-1.0 Collected by 2014 5:55am nurse? N Total Creatine July 16, 163 U/L H 30-135 Collected by Kinase 2013 7:22pm nurse? N Total Protein November 03, 6.4 g/dL N 6.4-8.5 Collected by 2014 5:55am nurse? N Troponin I May 06, < 0.012 0.010-0.08 2012 5:31am NG/ML 0 Urine Amphetamines May 06, Negative Negative Screen 2012 4:35am Urine Bacteria June 27, None seen Collected by 2013 8:45am /HPF nurse? NUrine collection method Clean Catch Urine Barbiturates May 06, Negative Negative Screen 2012 4:35am Urine May 06, Negative Negative Benzodiazepines 2012 4:35am Screen Urine Bilirubin July 16, Negative Negative Collected by 2013 9:00pm nurse? NUrine collection method Clean Catch Urine Blood July 16, Negative Negative Collected by 2013 9:00pm nurse? NUrine collection method Clean Catch Urine Cannabinoids May 06, Negative Negative Screen 2012 4:35am Urine Clarity July 16, Clear Collected by 2013 9:00pm nurse? NUrine collection method Clean Catch Urine Cocaine May 06, Negative Negative Screen 2012 4:35am Urine Collection July 16, Catheter Collected by Type 2013 9:00pm nurse? NUrine collection method Clean Catch Urine Color July 16, Yellow Collected by 2013 9:00pm nurse? NUrine collection method Clean Catch Urine Glucose (UA) July 16, Negative Negative Collected by 2013 9:00pm nurse? NUrine collection method Clean Catch Urine Ketones July 16, Negative Negative Collected by 2013 9:00pm nurse? NUrine collection method Clean Catch Urine Leukocyte July 16, Negative Negative Collected by Esterase 2013 9:00pm nurse? NUrine collection method Clean Catch Urine May 06, Negative NEGATIVE Methamphetamines 2012 4:35am Screen Urine Nitrite July 16, Negative Negative Collected by 2013 9:00pm nurse? NUrine collection method Clean Catch Urine Opiates May 06, Negative Negative Screen 2012 4:35am Urine Oxycodone May 06, Negative NEGATIVE Screen 2012 4:35am Urine Phencyclidine May 06, Negative Negative Phencyclidine testing by this method can showcross-reactivity with several common medications such as Screen 2012 4:35am venlafaxine, dextromethorphan, and diphenhydramine. Submission of any positive sample for confirmatory testing is recommended. Urine Propoxyphene May 06, Negative NEGATIVE Results of this screen are qualitative and are presumptiveresults. A more specific method ( i.e. GC/MS) must be used Screen 2012 4:35am if confirmation of results is indicated. Urine Protein July 16, Negative Negative Collected by 2013 9:00pm nurse? NUrine collection method Clean Catch Urine RBC June 27, 5-10 /HPF H Collected by 2013 8:45am nurse? NUrine collection method Clean Catch Urine Specific July 16, 1.020 1.005-1.03 Collected by [place] 2013 9:00pm 0 nurse? NUrine collection method Clean Catch Urine Squamous June 27, 2-5 /LPF Collected by Epithelial Cells 2013 8:45am nurse? NUrine collection method Clean Catch Urine Urobilinogen July 16, 0.2 mg/dL 0.2-1.0 Collected by 2013 9:00pm nurse? NUrine collection method Clean Catch Urine WBC June 27, None seen Collected by 2013 8:45am /HPF nurse? NUrine collection method Clean Catch Urine pH July 16, 6.0 5.0 - 8.0 Collected by 2013 9:00pm nurse? NUrine collection method Clean Catch Volume Urine June 27, 10 ml Collected by Centrifuged 2013 8:45am nurse? NUrine collection method Clean Catch White Blood Count November 03, 4.80 N 4.0-11.0 Collected by 2014 5:55am 10^3uL nurse? N Blood Culture Peripheral-: May 06, No Growth Lab 2012 9:45am in 5 days Indicates After Collectio Procedures No known history of procedures. Encounters Encounter Location Date/Time Discharged Inpatient [facility] 11/02/14 4:51am Registered Clinic [facility] 11/02/14 3:25am Recent Diagnosis Fracture of metatarsal of left foot, closed Injury of foot Fall Risk for falls Fracture of fifth metatarsal bone of left foot Physical deconditioning
--- OUTSIDE RECORDS SUMMARY | 2017-02-03 11:23 | External Medical Summary | Summary of Care ---
:1925 Author Name Richard Guardado M.D. Address Unavailable Unavailable , Care Team Providers Name Role Phone Debby Jade, Richard Unavailable Unavailable Elizabeth Woodard M.D. Unavailable Unavailable DebbyRichard Unavailable Unavailable Unavailable Unavailable Unavailable Functional Status [...] Active Abdominal pain (789.00, R10.9) Status: Active Diarrhea (787.91, R19.7) Status: Active Medications Name Dates Details Lovastatin [...] 132 mm[Hg] Status: Comments: Location: LUE; Position: Standing BP Diastolic 60 mm[Hg] Status: Comments: Location: LUE; Position: Standing Temperature 97.9 f Status: Comments: Method: Tympanic Heart Rate 69 /min Status: Comments: Location: ; Weight 117 lb Status: Physical Findings 93 Status: Comments: O2 Saturation Body Mass Index Calculated 22.85 kg/m2 Status: Body Surface Area Calculated 1.49 m2 Status: Results Date Description Value Details 14-Nov-2015 12:34 CT AB/ PEL WITHOUT IV AND WITH Comments: Exam Date: 2015 11:14Dictation Date: 11/14/2015 12:34 ORAL CONTRAST XC AB/PEL W/O IV Plan of Care Name Dates Details Planned Observations Planned Goals not documented Planned Encounters Appointment; Provider: Dale Sandoval M.D. On 16-May-2016 10:30 Appointment; Provider: Schedule Radiology On 14-Nov-2015 12:00 Instructions Name Dates Details Instructions not documented Encounters Appointment; Dale Sandoval M.D. On Encounter Diagnosis: [...]
--- OUTSIDE RECORDS SUMMARY | 2017-02-03 11:23 | External Medical Summary | Summary of Care ---
[...] peripheral artery angioplasty (V45.89, Z98.62) Status: Active Medications Name Dates Details Lovastatin [...] 1 TABLET DAILY. Quantity: 30 Refills: 6 [place] M.DCoral, Richard Start 01-Jan-2016 Active Sulfamethoxazole-Trimethoprim 800-160 MG Oral Tablet Take 1 po twice daily x 10 days Quantity: 20 Refills: 0 [place] M.D., Richard Start 01-Jan-2016 Active Allergies and Adverse Reactions [...] documented Encounters Appointment; Richard Guardado M.D. On 25-Dec-2015 Encounter [...]
--- OUTSIDE RECORDS SUMMARY | 2017-02-03 11:23 | External Medical Summary | Summary of Care ---
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 Quantity: 30 Refills: 6 Debby M.DRichard Moncada Start 12-Aug-2011 Active Aspirin 81 MG TABS [...] 6 MONTHS Quantity: 1 Refills: 0 Debby Villa.Richard Neil Start Active Silenor 3 MG Oral Tablet TAKE 1 TABLET Bedtime Quantity: 8 Refills: 0 Debby M.D., Richard Start 23-Nov-2015 Active Allergies and Adverse Reactions [...] Removal Of Tubal CP Echo Ordered: 07-Dec-2015 GASTRIC EMPTYING Ordered: CT ABDOMEN WITH ORAL [...] smoked Vital Signs Date Test Result Details 07-Dec-2015 08:48 BP Systolic 114 mm[Hg] Status: Comments: Location: RUE; Position: Sitting BP Diastolic 62 mm[Hg] Status: Comments: Location: RUE; Position: Sitting Heart Rate 68 /min Status: Comments: Location: ; Weight 111.5 lb Status: Body Mass Index Calculated 21.78 kg/m2 Status: Body Surface Area Calculated 1.46 m2 Status: 30-Nov-2015 14:04 BP Systolic 154 mm[Hg] Status: Comments: Location: ; Position: BP Diastolic 73 mm[Hg] Status: Comments: Location: ; Position: Heart Rate 77 /min Status: Comments: Location: ; Physical Findings 16 Status: Comments: Respiration Height 60 in Status: Weight 112 lb Status: Body Mass Index Calculated 21.87 kg/m2 Status: Body Surface Area Calculated 1.46 m2 Status: 23-Nov-2015 11:24 BP Systolic 128 mm[Hg] Status: Comments: Location: ; Position: BP Diastolic 70 mm[Hg] Status: Comments: Location: ; Position: Temperature 97.8 f Status: Heart Rate 66 /min Status: Comments: Location: [...] Dates Details Instructions not documented Encounters Appointment; Omar Castro M.D. On 30-Nov-2015 Encounter [...]
--- OUTSIDE RECORDS SUMMARY | 2017-02-03 11:23 | External Medical Summary | Summary of Care ---
:1925 Author Name Richard Guardado M.D. Address Unavailable Unavailable , Care Team Providers Name Role Phone Richard Guardado M.D. Unavailable Unavailable Dane Guardado M.D. Unavailable Unavailable [place] Unavailable Unavailable Unavailable Unavailable Unavailable Functional Status [...] by mouth at bedtime Quantity: 30 Refills: 11 Richard Guardado M.D. Start 31-Jul-2016 Active Aspirin 81 MG TABS TAKE 1 TABLET DAILY. Refills: 0 Start 12-Aug-2011 Active LevETIRAcetam 500 MG Oral Tablet TAKE 1 TABLET BY MOUTH TWICE DAILY Quantity: 60 Refills: 11 Richard Guardado M.D. Start 18-Aug-2016 Active Melatonin 1 MG Oral Tablet TAKE [...] NIGHT AT BEDTIME Quantity: 30 Refills: 11 [place] Yasmany, Richard Start 22-Feb-2016 Active Prolia 60 MG/ML Subcutaneous Solution INJECT SUBCUTANEOUSLY 60 MG / 1 ML EVERY 6 MONTHS Quantity: 1 Refills: 0 Debby Jade, Richard Start Active Sertraline HCl - 25 MG Oral Tablet TAKE 1 TABLET DAILY. Quantity: 60 Refills: 2 Dane Guardado M.D. Start 02-Apr-2016 Active Clopidogrel Bisulfate 75 MG Oral Tablet TAKE 1 TABLET DAILY.Dispense tablets manufactured by ki worksPatient had a reaction to same med from a different fire alarm technician Quantity: 90 Refills: 3 [place] Jade, Richard Start Active Allergies and Adverse Reactions Name [...] smoked Vital Signs Date Test Result Details 13:14 BP Systolic 106 mm[Hg] Status: Comments: Location: ; Position: BP Diastolic 66 mm[Hg] Status: Comments: Location: ; Position: Temperature 97.9 f Status: Comments: Method: Heart Rate 76 /min Status: Comments: Location: ; Weight 118 lb Status: Physical Findings 99 Status: Comments: O2 Saturation Body Mass Index Calculated 25.09 kg/m2 Status: Body Surface Area Calculated 1.45 m2 Status: Results Date Description Value Details Results not documented Plan of Care Name Dates Details Planned Observations Planned Goals not documented Planned Encounters Appointment; Provider: Mirella Kidd M.D. On 27-Jan-2017 14:15 Appointment; Provider: Richard Guardado M.D. On 07:45 Appointment; Provider: Dale Sandoval M.D. On 09:00 Interventions Provided Medication ChangesAspirin-Dipyridamole ER 25-200 MG Oral Capsule Extended Release 12 Hour - StopClopidogrel Bisulfate 75 MG Oral Tablet - Start Instructions Name Dates Details Instructions not documented Encounters Appointment; Mirella Kidd M.D. On 29-Jul-2016 Encounter Diagnosis: Problem not documented 13:30 Appointment; Richard Guardado M.D. On 20-May-2016 Encounter [...]
--- OUTSIDE RECORDS SUMMARY | 2017-02-03 11:23 | External Medical Summary | Summary of Care ---
:1925 Author Name Richard Guardado M.D. Address Unavailable Unavailable , Care Team Providers Name Role Phone Richard Guardado M.D. Unavailable Unavailable Dane Guardado M.D. Unavailable Unavailable Luly Sandoval M.D. Unavailable Unavailable Richard Guardado Unavailable Unavailable [...] in right buttock (729.1, M79.1) Status: Active Medications Name Dates Details Melatonin 1 MG Oral Tablet TAKE DIRECTED. Refills: 0 Start 11-Jun-2012 Active Tylenol Extra Strength 500 MG Oral Tablet TAKE 1 TAB EVERY 6 HOURS Refills: 0 Start 11-Jun-2012 Active Metoprolol Succinate ER 25 MG Oral Tablet Extended Release 24 Hour TAKE 1 TABLET BY MOUTH EVERY NIGHT AT BEDTIME Quantity: 30 Refills: 11 Richard Guardado M.D. Start 22-Feb-2016 Active Prolia 60 MG/ML Subcutaneous Solution INJECT SUBCUTANEOUSLY 60 MG / 1 ML EVERY 6 MONTHS Quantity: 1 Refills: 0 Richard Guardado M.D. Start Active Sulfamethoxazole-Trimethoprim 800-160 MG Oral Tablet TAKE 1 TABLET TWICE DAILY UNTIL FINISHED. Quantity: 14 Refills: 0 Dale Sandoval M.D. Start 01-Jan-2016 Active Sertraline HCl - 25 MG Oral Tablet TAKE 1 TABLET DAILY. Quantity: 60 Refills: 2 Dane Guardado M.D. Start 02-Apr-2016 Active Clopidogrel Bisulfate 75 MG Oral Tablet TAKE 1 TABLET DAILY. Quantity: 90 Refills: 2 [place] M.D.[place] Start 01-Jan-2016 Active Lovastatin 40 MG Oral Tablet TAKE 1 TABLET AT BEDTIME. Quantity: 30 Refills: 6 DebbySyeda cui M.D.ian Start 12-Aug-2011 Active Aspirin 81 MG TABS TAKE 1 TABLET DAILY. Refills: 0 Start 12-Aug-2011 Active Meloxicam 7.5 MG Oral Tablet TAKE 1 TABLET DAILY WITH FOOD. Quantity: 30 Refills: 1 [place] M.D[place] Start 14-Feb-2016 Active Calcium + D 500-1000-40 MG-UNT-MCG Oral Tablet Chewable Refills: 0 Start 01-Aug-2013 Active Multivitamins Oral Capsule TAKE 1 CAPSULE DAILY. Refills: 0 Start 01-Aug-2013 Active B-12 500 MCG Oral Tablet Refills: 0 Start 01-Aug-2013 Active LevETIRAcetam 500 MG Oral Tablet TAKE 1 TABLET BY MOUTH TWICE DAILY MUST MAKE APPT TO GET MORE REFILLS Quantity: 60 Refills: 3 DebbySyeda cui M.D.ian Start Active Allergies and Adverse Reactions Name [...] smoked Vital Signs Date Test Result Details 20-May-2016 10:21 Physical Findings 98 Status: Comments: O2 Saturation 20-May-2016 09:53 BP Systolic 122 mm[Hg] Status: BP Diastolic 54 mm[Hg] Status: Temperature 97.2 f Status: Height 57.5 in Status: Weight 116 lb Status: Body Mass Index Calculated 24.67 kg/m2 Status: Body Surface Area Calculated 1.44 m2 Status: Results Date Description Value Details Results not documented Plan of Care Name Dates Details Planned Observations Planned Goals not documented Planned Encounters Appointment; Provider: Richard Guardado M.D. On 07:45 Appointment; Provider: Mirella Kidd M.D. On 29-Jul-2016 13:30 Instructions Name Dates Details Instructions not documented Encounters Appointment; Richard Guardado M.D. On 23-Apr-2016 Encounter [...]
--- OUTSIDE RECORDS SUMMARY | 2017-02-03 11:23 | External Medical Summary ---
:1925 Author Name GENERATED, SYSTEM Care Team Providers Name Role Phone MD MERINO BRIAN Primary Care Provider [phone] Reason For Visit Reason for Visit from 12/31/2016 11:42 AM:Pt Stated Reason for Adm : Abdominal pain Chief Complaint ABD PAIN, MESEHTERIC ISCHEMIA Social History Social History from 01/07/2017 10:17 AM:Tobacco Use? : Never SmokerSocial History from 12/31/2016 11:42 AM:Tobacco Use? : Never Smoker Functional Status Functional Status from 01/07/2017 9:14 AM:LOC : AlertOriented To : Person,Place, Time,EventWeight Bearing Status : FullAssist Level : Partial# Assists : 1Functional Status from 01/06/2017 9:12 PM:# Assists : 1Functional Status from 9:06 PM:LOC : AlertOriented To : Person,Place,Time,EventWeight Bearing Status : FullAssist Level : Partial# Assists : 1Functional Status from 2016 6:43 PM:# Assists : 1Functional Status from 01/06/2017 1:10 PM:# Assists : 1Functional Status from 01/06/2017 9:52 AM:LOC : AlertOriented To : Person,Place, Time,EventWeight Bearing Status : FullAssist Level : Partial# Assists : 1Functional Status from 01/06/2017 8:42 AM:# Assists : 1# Assists : 1Functional Status from 01/06/2017 8:40 AM:# Assists : 1Functional Status from 01/06/2017 4: 02 AM:# Assists : 1Functional Status from 01/05/2017 8:49 PM:# Assists : 1Functional Status from 01/05/2017 8:25 PM:LOC : AlertOriented To : Person,Place, Time,EventWeight Bearing Status : FullAssist Level : Partial# Assists : 1Functional Status from 01/05/2017 11:04 AM:# Assists : 2Functional Status from 9:08 AM:LOC : AlertOriented To : Person,Place,Time,EventWeight Bearing Status : FullAssist Level : Partial# Assists : 1Functional Status from 2016 9:07 AM:Oriented To : Person,Place,TimeFunctional Status from 01/05/2017 4: 38 AM:# Assists : 1Functional Status from 01/04/2017 11:50 PM:# Assists : 1Functional Status from 01/04/2017 10:02 PM:LOC : AlertOriented To : Person,Place ,Time,EventWeight Bearing Status : FullAssist Level : Partial# Assists : 1Functional Status from 01/04/2017 8:23 AM:LOC : AlertOriented To : Person,Place, Time,EventWeight Bearing Status : FullAssist Level : Partial# Assists : 1Functional Status from 01/03/2017 8:49 PM:LOC : AlertOriented To : Person,Place, Time,EventWeight Bearing Status : FullAssist Level : Partial# Assists : 1Functional Status from 01/03/2017 10:31 AM:LOC : AlertOriented To : Person,Place ,Time,EventWeight Bearing Status : FullAssist Level : Independent# Assists : 1Functional Status from 01/03/2017 9:00 AM:Oriented To : Person,Place, TimeFunctional Status from 01/02/2017 8:00 PM:LOC : AlertOriented To : Person, Place,Time,EventWeight Bearing Status : Other (See reason in Comments)Assist Level : Partial# Assists : 1Functional Status from 01/02/2017 8:10 AM:LOC : AlertOriented To : Person,Place,Time,EventWeight Bearing Status : FullAssist Level : Partial# Assists : 1Functional Status from 01/01/2017 10:22 PM:# Assists : 1Functional Status from 01/01/2017 9:46 PM:LOC : AlertOriented To : Person, Place,TimeWeight Bearing Status : FullAssist Level : Partial# Assists : 1Functional Status from 01/01/2017 9:55 AM:# Assists : 1Functional Status from 8:06 AM:LOC : AlertOriented To : Person,Place,Time,EventWeight Bearing Status : FullAssist Level : Partial# Assists : 1Functional Status from 2016 2:45 AM:LOC : AlertOriented To : Person,Place,TimeWeight Bearing Status : FullAssist Level : Partial# Assists : 1Functional Status from 12/31/2016 3:22 PM: LOC : AlertOriented To : Person,Place,Time,EventWeight Bearing Status : FullAssist Level : Partial# Assists : 1Functional Status from 12/31/2016 11:42 AM :LOC : AlertOriented To : Person,Place,Time,EventWeight Bearing Status : FullAssist Level : Partial# Assists : 1 Vital Signs Hospital Vital Signs from 01/07/2017 10:42 AM:Height : 4/9 ft,inTemperature : 96.5 FPulse : 79Respirations : 18BP : 95/55Hospital Vital Signs from 01/07/2017 10:06 AM:Height : 4/9 ft,inHospital Vital Signs from 01/07/2017 7:24 AM:Height : 4/9 ft,inTemperature : 96.9 FPulse : 76Respirations : 18BP : 119/56Hospital Vital Signs from 01/07/2017 2:18 AM:Weight : 57.7/ kgHeight : 4/9 ft, inTemperature : 97.2 FPulse : 70Respirations : 18BP : 121/54Hospital Vital Signs from 01/06/2017 10:15 PM:Height : 4/9 ft,inTemperature : 97.6 FPulse : 74Respirations : 18BP : 118/61Hospital Vital Signs from 01/06/2017 7:46 PM: Height : 4/9 ft,inTemperature : 97.4 FPulse : 72Respirations : 18BP : 112/ 57Hospital Vital Signs from 01/06/2017 3:24 PM:Height : 4/9 ft,inTemperature : 96.7 FPulse : 78Respirations : 18BP : 96/54Hospital Vital Signs from 01/06/2017 11:34 AM:Height : 4/9 ft,inTemperature : 98.9 FPulse : 75Respirations : 18BP : 108/54Hospital Vital Signs from 01/06/2017 9:59 AM:Height : 4/9 ft,inBP : 98/ 47Hospital Vital Signs from 01/06/2017 9:52 AM:Heart Rate : 92Hospital Vital Signs from 01/06/2017 7:34 AM:Height : 4/9 ft,inTemperature : 97.9 FPulse : 71Respirations : 20BP : 103/58Hospital Vital Signs from 01/06/2017 2:24 AM: Weight : 87/ kgHeight : 4/9 ft,inTemperature : 96.4 FPulse : 75Respirations : 20BP : 115/53Hospital Vital Signs from 01/05/2017 10:33 PM:Height : 4/9 ft, inTemperature : 97.1 FPulse : 76Respirations : 22BP : 101/51Hospital Vital Signs from 01/05/2017 7:21 PM:Height : 4/9 ft,inTemperature : 96.7 FPulse : 77Respirations : 24BP : 107/53Hospital Vital Signs from 01/05/2017 3:52 PM: Height : 4/9 ft,inTemperature : 96.7 FPulse : 69Respirations : 20BP : 121/ 58Hospital Vital Signs from 01/05/2017 9:08 AM:Heart Rate : 58Hospital Vital Signs from 01/05/2017 7:02 AM:Height : 4/9 ft,inTemperature : 98.0 FPulse : 72Respirations : 18BP : 150/70Hospital Vital Signs from 01/05/2017 3:05 AM: Weight : 59.6/ kgHeight : 4/9 ft,inTemperature : 97.8 FPulse : 72Respirations : 18BP : 157/72Hospital Vital Signs from 01/04/2017 10:45 PM:Height : 4/9 ft,inBP : 165/87Hospital Vital Signs from 01/04/2017 10:25 PM:Height : 4/9 ft, inTemperature : 97.5 FPulse : 76Respirations : 20BP : 185/77Hospital Vital Signs from 01/04/2017 10:02 PM:Heart Rate : 85Hospital Vital Signs from 2016 7:39 PM:Height : 4/9 ft,inTemperature : 97.7 FPulse : 80Respirations : 20BP : 149/67Hospital Vital Signs from 01/04/2017 3:11 PM:Height : 4/9 ft, inTemperature : 98.2 FPulse : 91Respirations : 20BP : 144/73Hospital Vital Signs from 01/04/2017 11:16 AM:Height : 4/9 ft,inTemperature : 98.1 FPulse : 76Respirations : 20BP : 137/59Hospital Vital Signs from 01/04/2017 7:29 AM: Height : 4/9 ft,inTemperature : 97.1 FPulse : 80Respirations : 20BP : 143/ 67Hospital Vital Signs from 01/04/2017 4:45 AM:Height : 4/9 ft,inTemperature : 96.4 FPulse : 84Respirations : 20BP : 163/72Hospital Vital Signs from 01/04/2017 3:56 AM:Height : 4/9 ft,inTemperature : 98.7 FPulse : 96Respirations : 20BP : 188/88Hospital Vital Signs from 01/04/2017 2:55 AM:Weight : 60.1/ kgHeight : 4/9 ft,inTemperature : 96.2 FPulse : 79Respirations : 20BP : 153/65Hospital Vital Signs from 01/03/2017 11:18 PM:Height : 4/9 ft,inTemperature : 98.1 FPulse : 74Respirations : 23BP : 134/62Hospital Vital Signs from 01/03/2017 8:49 PM:Heart Rate : 84Hospital Vital Signs from 01/03/2017 7:41 PM:Height : 4/9 ft, inTemperature : 97.0 FPulse : 88Respirations : 18BP : 174/67Hospital Vital Signs from 01/03/2017 3:18 PM:Height : 4/9 ft,inTemperature : 97.8 FPulse : 73Respirations : 18BP : 116/57Hospital Vital Signs from 01/03/2017 11:13 AM: Height : 4/9 ft,inTemperature : 97.3 FPulse : 76Respirations : 18BP : 120/ 57Hospital Vital Signs from 01/03/2017 10:31 AM:Heart Rate : 78Hospital Vital Signs from 01/03/2017 7:43 AM:Height : 4/9 ft,inTemperature : 97.0 FPulse : 79Respirations : 18BP : 143/67Hospital Vital Signs from 01/03/2017 3:19 AM: Weight : 59.5/ kgHeight : 4/9 ft,inTemperature : 98.8 FPulse : 85Respirations : 18BP : 108/53Hospital Vital Signs from 01/02/2017 10:29 PM:Height : 4/9 ft, inTemperature : 97.2 FPulse : 74Respirations : 18BP : 142/75Hospital Vital Signs from 01/02/2017 7:13 PM:Height : 4/9 ft,inTemperature : 96.1 FPulse : 88Respirations : 18BP : 151/72Hospital Vital Signs from 01/02/2017 6:17 PM: Height : 4/9 ft,inTemperature : 98.1 FPulse : 83Respirations : 20BP : 160/ 72Hospital Vital Signs from 01/02/2017 5:01 PM:Height : 4/9 ft,inTemperature : 97.9 FPulse : 82Respirations : 20BP : 190/82Hospital Vital Signs from 01/02/2017 3:48 PM:Height : 4/9 ft,inTemperature : 97.4 FPulse : 71Respirations : 20BP : 163/76Hospital Vital Signs from 01/02/2017 3:00 PM:Height : 4/9 ft,inTemperature : 97.8 FPulse : 73Respirations : 18BP : 165/73Hospital Vital Signs from 2016 2:32 PM:Height : 4/9 ft,inTemperature : 96.6 FPulse : 73Respirations : 18BP : 172/75Hospital Vital Signs from 01/02/2017 2:01 PM:Height : 4/9 ft, inTemperature : 97.8 FPulse : 73Respirations : 18BP : 161/74Hospital Vital Signs from 01/02/2017 1:51 PM:Height : 4/9 ft,inTemperature : 97.3 FPulse : 71Respirations : 18BP : 152/70Hospital Vital Signs from 01/02/2017 1:36 PM: Height : 4/9 ft,inTemperature : 97.2 FPulse : 79Respirations : 18BP : 160/ 75Hospital Vital Signs from 01/02/2017 1:24 PM:Height : 4/9 ft,inTemperature : 97.2 FPulse : 79Respirations : 18BP : 160/75Hospital Vital Signs from 01/02/2017 1:03 PM:Temperature : 97.1 FPulse : 74Respirations : 18BP : 174/79Hospital Vital Signs from 01/02/2017 10:58 AM:Height : 4/9 ft,inTemperature : 97.8 FPulse : 85Respirations : 18BP : 176/84Hospital Vital Signs from 01/02/2017 7:40 AM: Height : 4/9 ft,inTemperature : 97.5 FPulse : 79Respirations : 18BP : 169/ 73Hospital Vital Signs from 01/02/2017 7:36 AM:Weight : 62.6/ kgHeight : 4/9 ft, inTemperature : 97.8 FPulse : 85Respirations : 18BP : 176/84Hospital Vital Signs from 01/02/2017 5:15 AM:Height : 4/9 ft,inPulse : 102Respirations : 18BP : 189/88Hospital Vital Signs from 01/02/2017 3:26 AM:Weight : 62.6/ kgHeight : 4/9 ft,inTemperature : 97.8 FPulse : 89Respirations : 20BP : 143/62Hospital Vital Signs from 01/01/2017 10:22 PM:Height : 4/9 ft,inTemperature : 98.5 FPulse : 85Respirations : 24BP : 149/63Hospital Vital Signs from 01/01/2017 9:46 PM:Heart Rate : 77Hospital Vital Signs from 01/01/2017 7:30 PM:Height : 4/9 ft, inTemperature : 97.5 FPulse : 95Respirations : 19BP : 147/65Hospital Vital Signs from 01/01/2017 3:13 PM:Height : 4/9 ft,inTemperature : 97.7 FPulse : 80Respirations : 19BP : 117/73Hospital Vital Signs from 01/01/2017 11:20 AM: Height : 4/9 ft,inTemperature : 98.5 FPulse : 74Respirations : 20BP : 120/ 56Hospital Vital Signs from 01/01/2017 10:36 AM:Height : 4/9 ft,inHospital Vital Signs from 01/01/2017 8:06 AM:Heart Rate : 88Hospital Vital Signs from 01/01/2017 7:20 AM:Height : 4/9 ft,inTemperature : 98.9 FPulse : 74Respirations : 20BP : 118/58Hospital Vital Signs from 01/01/2017 2:45 AM:Heart Rate : 85Hospital Vital Signs from 01/01/2017 2:30 AM:Weight : 53.5/ kgHeight : 4/9 ft,inTemperature : 98.0 FPulse : 76Respirations : 18BP : 98/57Hospital Vital Signs from 12/31/2016 10:27 PM:Height : 4/9 ft,inTemperature : 97.6 FPulse : 72Respirations : 18BP : 121/57Hospital Vital Signs from 12/31/2016 7:59 PM:Height : 4/9 ft,inTemperature : 98.1 FPulse : 80Respirations : 18BP : 132/82Hospital Vital Signs from 2016 3:22 PM:Heart Rate : 79Hospital Vital Signs from 12/31/2016 3:08 PM:Height : 4/9 ft,inTemperature : 98.0 FPulse : 80Respirations : 18BP : 152/76Hospital Vital Signs from 12/31/2016 12:55 PM:Height : 4/9 ft,inHospital Vital Signs from 12/31/2016 12:40 PM:Height : 4/9 ft,inHospital Vital Signs from 12/31/2016 12:25 PM:Height : 4/9 ft,inPulse : 67BP : 111/73Hospital Vital Signs from 12/31/2016 12 :05 PM:Height : 4/9 ft,inHospital Vital Signs from 12/31/2016 11:50 AM:Height : 4 /9 ft,inHospital Vital Signs from 12/31/2016 11:42 AM:Weight : 53.5/ kgHeight : 4 /9 ft,inHospital Vital Signs from 12/31/2016 11:20 AM:Height : 4/9 ft, inTemperature : 97.8 FPulse : 87Respirations : 18BP : 145/67 Results Chemistry from 01/04/2017 5:04 [id number] MMOL/L (136-145 MMOL/L) POTASSIUM4.0 MMOL/L (3.5-5.1 MMOL/L) ZYFYRVHO494 MMOL/L H (98-107 MMOL/L) JZO400.9 MMOL/L (21.0-32.0 MMOL/L) *ANION GAP5.1 MMOL/L L (8.0-16.0 MMOL/L) BUN14 MG/DL (7-18 MG/DL) CREATININE0.74 MG/DL (0.55-1.02 MG/DL) *BUN/CREATININE RATIO18.9 H (9.1-17.0 ) PRZQAJA744 MG/DL H (65-99 MG/DL) *GFR EST NON AFR WVEZFYWX25 ML/MIN (Reference Range: not available) *GFR EST AFR AMER83 ML/MIN (Reference Range: not available) CALCIUM8.1 MG/DL L (8.5-10.1 MG/DL) MAGNESIUM1.7 MG/DL L (1.8-2.4 MG/DL)Chemistry from 01/03/2017 1:00 PMPOTASSIUM3.3 MMOL/L L (3.5-5.1 MMOL/L)Chemistry from 01/03/2017 4:58 [id number] MMOL/L (136-145 MMOL/L) POTASSIUM3.2 MMOL/L L (3.5-5.1 MMOL/L) CYMINGKA293 MMOL/L H (98-107 MMOL/L) TIE164.3 MMOL/L (21.0-32.0 MMOL/L) *ANION GAP9.7 MMOL/L (8.0-16.0 MMOL/L) BUN11 MG/DL (7-18 MG/DL) CREATININE0.78 MG/DL (0.55-1.02 MG/DL) *BUN/CREATININE RATIO14.1 (9.1-17.0 ) AHNMUOF595 MG/DL H (65-99 MG/DL) *GFR EST NON AFR HNTVNTRC48 ML/MIN (Reference Range: not available) *GFR EST AFR AMER78 ML/MIN (Reference Range: not available) CALCIUM7.8 MG/DL L (8.5-10.1 MG/DL) ALBUMIN2.8 GM/DL L (3.4-5.0 GM/DL) MAGNESIUM1.6 MG/DL L (1.8-2.4 MG/DL) PHOSPHORUS2.9 MG/DL (2.6-4.7 MG/DL)Chemistry from 01/02/2017 11:20 AMTROPONIN-I& lt;0.017 NG/ML (0.000-0.056 NG/ML)Chemistry from 01/02/2017 5:33 [id number] MMOL /L (136-145 MMOL/L) POTASSIUM3.6 MMOL/L (3.5-5.1 MMOL/L) HBIVQFJW776 MMOL/L H (98-107 MMOL/L) BZH737.7 MMOL/L (21.0-32.0 MMOL/L) *ANION GAP9.3 MMOL/L (8.0-16.0 MMOL/L) BUN12 MG/DL (7-18 MG/DL) CREATININE0.87 MG/DL (0.55-1.02 MG/DL) *BUN/CREATININE RATIO13.8 (9.1-17.0 ) MXXCLBX879 MG/DL H (65-99 MG/DL) *GFR EST NON AFR NTLNSKHK10 ML/MIN (Reference Range: not available) *GFR EST AFR AMER68 ML/MIN (Reference Range: not available) CALCIUM7.7 MG/DL L (8.5-10.1 MG/DL) ALBUMIN2.8 GM/DL L (3.4-5.0 GM/DL) PHOSPHORUS2.5 MG/DL L (2.6-4.7 MG/DL) TROPONIN-I<0.017 NG/ML (0.000-0.056 NG/ML)Chemistry from 01/01/2017 5:20 HNCTFQUU196 MMOL/L (136-145 MMOL/L) POTASSIUM3.4 MMOL/L L (3.5-5.1 MMOL/L) ECHTLUXN922 MMOL/L H (98-107 MMOL/L) MIL041.9 MMOL/L (21.0-32.0 MMOL/L) *ANION GAP6.1 MMOL/L L (8.0-16.0 MMOL/L) BUN11 MG/DL (7-18 MG/DL) CREATININE0.69 MG/DL (0.55-1.02 MG/DL) *BUN/CREATININE RATIO15.9 (9.1-17.0 ) TDZHYLO375 MG/DL H (65-99 MG/DL) *GFR EST NON AFR WZBMZTMK13 ML/MIN (Reference Range: not available) *GFR EST AFR AMER89 ML/MIN (Reference Range: not available) CALCIUM7.9 MG/DL L (8.5-10.1 MG/DL) ALBUMIN2.7 GM/DL L (3.4-5.0 GM/DL) PHOSPHORUS2.7 MG/DL (2.6-4.7 MG/DL)Chemistry from 12/31/2016 11:58 YXYSCBNT259 MMOL/L (136-145 MMOL/L) POTASSIUM3.4 MMOL/L L (3.5-5.1 MMOL/L) FHJJSDPV061 MMOL/L (98-107 MMOL/L) WWE163.3 MMOL/L (21.0-32.0 MMOL/L) *ANION GAP6.7 MMOL/L L (8.0-16.0 MMOL/L) BUN3 MG/DL L (7-18 MG/DL) CREATININE0.78 MG/DL (0.55-1.02 MG/DL) *BUN/CREATININE RATIO3.8 L (9.1-17.0 ) DPSOXPL02 MG/DL (65-99 MG/DL) *GFR EST NON AFR IEBAZQPT78 ML/MIN (Reference Range: not available) *GFR EST AFR AMER78 ML/MIN (Reference Range: not available) CALCIUM8.1 MG/DL L (8.5-10.1 MG/DL) BILIRUBIN TOTAL0.40 MG/DL (0.20-1.00 MG/DL) TOTAL PROTEIN6.8 GM/DL (6.4-8.2 GM/DL) ALBUMIN3.2 GM/DL L (3.4-5.0 GM/DL) *GLOBULIN3.6 GM/DL H (2.3-3.5 GM/DL) *A/G RATIO0.9 L (1.5-2.2 ) ALK PHOS53 U/L (46-116 U/L) ALT (SGPT)31 U/L (16-63 U/L) AST (SGOT)30 U/L (15-37 U/L)Hematology from 01/03/2017 4:58 AMWBC6.3 X10e3/UL ( 3.6-11.2 X10e3/UL) RBC3.16 X10e6/UL L (3.63-4.92 X10e6/UL) HEMOGLOBIN9.6 G/DL L (11.0-14.3 G/DL) VKFJXABSRU75.2 % L (31.2-41.9 %) *MCV92.6 FL (79.0-98.0 FL) *MCH30.4 PG (27.0-33.0 PG) *MCHC32.8 G/DL (32.0-36.0 G/DL) *RDW14.7 % (12.3-17.0 %) *RDWSD47.3 (37.1-47.8 ) DOARETOP544 X10e3/UL (159-386 X10e3/UL) *MPV9.6 FL (7.4-10.4 FL) AUTOMATED DIFFPERFORMED (Reference Range: not available) SEGS81.1 % (Reference Range: not available) *PTAXJDOWBTQ84.3 % (Reference Range: not available) *MONOCYTES6.3 % (Reference Range: not available) *EOSINOPHILS0.1 % (Reference Range: not available) *BASOPHILS0.2 % (Reference Range: not available) *ABSOLUTE NEUTROPHILS5.10 X10e3/UL (1.80-7.80 X10e3/UL) *ABSOLUTE LYMPHOCYTES0.80 X10e3/UL L (1.00-3.00 X10e3/UL) *ABSOLUTE MONOCYTES0.40 X10e3/UL (0.30-1.00 X10e3/UL) *ABSOLUTE EOSINOPHILS0.00 X10e3/UL (0.00-0.50 X10e3/UL) *ABSOLUTE BASOPHILS0.00 X10e3/UL (0.00-0.20 X10e3/UL)Hematology from 01/02/2017 5 :33 AMWBC5.9 X10e3/UL (3.6-11.2 X10e3/UL) RBC3.18 X10e6/UL L (3.63-4.92 X10e6/UL) HEMOGLOBIN9.8 G/DL L (11.0-14.3 G/DL) KBNTMHZPZD50.6 % L (31.2-41.9 %) *MCV92.9 FL (79.0-98.0 FL) *MCH30.8 PG (27.0-33.0 PG) *MCHC33.1 G/DL (32.0-36.0 G/DL) *RDW14.5 % (12.3-17.0 %) *RDWSD46.8 (37.1-47.8 ) FSAVCELG576 X10e3/UL (159-386 X10e3/UL) *MPV9.4 FL (7.4-10.4 FL) AUTOMATED DIFFPERFORMED (Reference Range: not available) SEGS69.9 % (Reference Range: not available) *UUYWTJJANDR68.8 % (Reference Range: not available) *MONOCYTES8.2 % (Reference Range: not available) *EOSINOPHILS2.5 % (Reference Range: not available) *BASOPHILS0.6 % (Reference Range: not available) *ABSOLUTE NEUTROPHILS4.20 X10e3/UL (1.80-7.80 X10e3/UL) *ABSOLUTE LYMPHOCYTES1.10 X10e3/UL (1.00-3.00 X10e3/UL) *ABSOLUTE MONOCYTES0.50 X10e3/UL (0.30-1.00 X10e3/UL) *ABSOLUTE EOSINOPHILS0.10 X10e3/UL (0.00-0.50 X10e3/UL) *ABSOLUTE BASOPHILS0.00 X10e3/UL (0.00-0.20 X10e3/UL)Hematology from 01/01/2017 5 :21 AMWBC4.7 X10e3/UL (3.6-11.2 X10e3/UL) RBC3.07 X10e6/UL L (3.63-4.92 X10e6/UL) HEMOGLOBIN9.4 G/DL L (11.0-14.3 G/DL) DWKZSEWTMH32.2 % L (31.2-41.9 %) *MCV92.1 FL (79.0-98.0 FL) *MCH30.8 PG (27.0-33.0 PG) *MCHC33.4 G/DL (32.0-36.0 G/DL) *RDW14.4 % (12.3-17.0 %) *RDWSD46.8 (37.1-47.8 ) BUNGSCTO216 X10e3/UL (159-386 X10e3/UL) *MPV9.2 FL (7.4-10.4 FL) AUTOMATED DIFFPERFORMED (Reference Range: not available) SEGS69.1 % (Reference Range: not available) *SFBPLTPBVYU29.1 % (Reference Range: not available) *MONOCYTES8.3 % (Reference Range: not available) *EOSINOPHILS2.0 % (Reference Range: not available) *BASOPHILS0.5 % (Reference Range: not available) *ABSOLUTE NEUTROPHILS3.20 X10e3/UL (1.80-7.80 X10e3/UL) *ABSOLUTE LYMPHOCYTES0.90 X10e3/UL L (1.00-3.00 X10e3/UL) *ABSOLUTE MONOCYTES0.40 X10e3/UL (0.30-1.00 X10e3/UL) *ABSOLUTE EOSINOPHILS0.10 X10e3/UL (0.00-0.50 X10e3/UL) *ABSOLUTE BASOPHILS0.00 X10e3/UL (0.00-0.20 X10e3/UL)Hematology from 12/31/2016 11:58 AMWBC4.2 X10e3/UL (3.6-11.2 X10e3/UL) RBC3.52 X10e6/UL L (3.63-4.92 X10e6/UL) KGTSPDBOJZ34.9 G/DL L (11.0-14.3 G/DL) SVKMOZYRHV49.5 % (31.2-41.9 %) *MCV92.4 FL (79.0-98.0 FL) *MCH31.1 PG (27.0-33.0 PG) *MCHC33.6 G/DL (32.0-36.0 G/DL) *RDW14.4 % (12.3-17.0 %) *RDWSD46.4 (37.1-47.8 ) VHLOTORM186 X10e3/UL (159-386 X10e3/UL) *MPV9.1 FL (7.4-10.4 FL) AUTOMATED DIFFPERFORMED (Reference Range: not available) SEGS66.7 % (Reference Range: not available) *VHFSENIFNDK95.7 % (Reference Range: not available) *MONOCYTES8.7 % (Reference Range: not available) *EOSINOPHILS1.1 % (Reference Range: not available) *BASOPHILS0.8 % (Reference Range: not available) *ABSOLUTE NEUTROPHILS2.80 X10e3/UL (1.80-7.80 X10e3/UL) *ABSOLUTE LYMPHOCYTES1.00 X10e3/UL (1.00-3.00 X10e3/UL) *ABSOLUTE MONOCYTES0.40 X10e3/UL (0.30-1.00 X10e3/UL) *ABSOLUTE EOSINOPHILS0.00 X10e3/UL (0.00-0.50 X10e3/UL) *ABSOLUTE BASOPHILS0.00 X10e3/UL (0.00-0.20 X10e3/UL)Coagulation from 12/31/2016 11:58 AM*PROTHROMBIN TIME10.4 SECONDS (9.4-11.5 SECONDS) *INR0.97 (0.90-1.10 )Echocardiology from 01/05/2017 12:00 AMEchocardiogramSee also the report from this date (Reference Range: not available) DX Radiology from 01/04/2017 11:20 AMCHEST 1 VIEWHistory: 89-year-old female. Shortness of breath. Priors: None. Findings: There is limited depth of inspiration. The heart size is upper limits of normal. Calcified plaque projects over the aortic knob the pulmonary vasculature is not engorged. Scattered areas of scarring are seen bilaterally including a probable calcified pleural plaque projecting over the left lung apex. Minimal thickening along the right minor fissure is seen. No focal consolidation, pneumothorax, or pleural effusion is seen. Impression: Scattered areas of scarring. No focal consolidation or pneumothorax. Minimal thickening of the right minor fissure, likely representing minimal fluid. Electronically signed by: Star Hale MD Dictated: 01/04/2017 16:57 (Reference Range: not available) Nuclear Medicine from 01/05/2017 8:57 AMMYOCARDIAL PERFUSION PHARMACOLOGICALHistory: Chest Pain. Technique: The patient was given 10.5 millicuries of Tc99m Myoview and spect images were obtained of the heart. The patient was then stressed with 0.4mg intravenous Lexiscan per protocol and given a second injection of 31.2 millicuries of Tc99m Myoview. Gated Spect images were then obtained of the heart. Priors: None. Findings: When comparing the stress and rest images, there is no evidence of chronic infarct or stress induced ischemia.Left ventricular ejection fraction measures 96%. Impression: No evidence of chronic infarct or stress induced ischemia Left ventricular ejection fraction of 96%. Electronically signed by: Jenny Llamas MD Dictated: 01/05/2017 11:11 (Reference Range: not available) Problems Encounter Diagnosis Abdominal Pain Status:Active.Fall Risk Status:Active.Hypertensive Disorder Status:Active.Nausea & Vomiting Status:Active.Peripheral Vascular Disease Status:Active. Encounters Encounter Diagnosis Abdominal Pain Status:Active.Fall Risk Status:Active.Hypertensive Disorder Status:Active.Nausea & Vomiting Status:Active.Peripheral Vascular Disease Status:Active. Plan of Care Follow-up Appointments from 01/07/2017 10:17 AM:#1 Office appointment: : Dr. Richard Merino#1 Date/Time : 01/14/2017 10:30 AMAddress # 1 : [id number], [place]#2 Office appointment: : Dr. Chris ([place] Deon Cordova)#2 Date/Time : 02/03/2017 9:30 AMAddress # 2 : [facility]: [address], [place]- or Treatment Plan from 01/06/2017 2:30 PM: Care Management Note : BODY,TD,TH,BUTTON,INPUT,SELECT,TEXTAREA{FONT-SIZE: 10pt; FONT-FAMILY: [employer] [place],Helvetica; COLOR: black;} P,DIV,UL,OL,BLOCKQUOTE{MARGIN- BOTTOM: 0px; MARGIN-TOP: 0px;} BODY{MARGIN: 5px;}Patient was evaled for both Rehab and SNU but is doing too well for both. SW'er discussed situationwith patient, who stated that she was feeling better and now would like to return home with . Riya used [facility] in the past and would like to have them again. [facility]. Patient states that her nephew will come to pick patient up at discharge to transport home. Patient is anticipated to dc tomorrow.Treatment Plan from 01/06/2017 2:13 PM:Care Management Note : BODY,TD,TH,BUTTON,INPUT,SELECT,TEXTAREA{FONT-SIZE: 10pt; FONT- FAMILY: [place],Helvetica; COLOR: black;} P,DIV,UL,OL,BLOCKQUOTE{MARGIN-BOTTOM: 0px; MARGIN-TOP: 0px;} BODY{MARGIN: 5px;} Patient is SBA with occupational therapy today and ambulated feet without difficulty. Not felt to need inpatient physical and occupational therapy.Treatment Plan from 01/06/2017 11:16 AM:Care Management Note : BODY,TD,TH,BUTTON,INPUT,SELECT,TEXTAREA{FONT-FAMILY: [employer] [place],Helvetica; COLOR: black; FONT-SIZE: 10pt;} P,DIV,UL,OL,BLOCKQUOTE{MARGIN- TOP: 0px; MARGIN-BOTTOM: 0px;} BODY{MARGIN: 5px;}Treatment Plan from 01/05/2017 1 :40 PM:Care Management Note : BODY,TD,TH,BUTTON,INPUT,SELECT,TEXTAREA{FONT-SIZE : 10pt; FONT-FAMILY: [employer] [place],Helvetica; COLOR: black;} P,DIV,UL,OL,BLOCKQUOTE{ MARGIN-BOTTOM: 0px; MARGIN-TOP: 0px;} BODY{MARGIN: 5px;} [facility]. Patient now states that while she would like to return home, she things she may need some therapy. Patient is very passionate when stating she does not want to return to [facility]. Patient asks about staying at the hospital, as she was told by the hospitalist that was an option. [facility] be made for [facility]. Patient stated she would like to stay her prior to going home if possible. [facility].Patient also had concerns regarding her bills and [facility]es [facility] call her manager of construction Melissa Bianchien for assistance as she didn' t want her gas to be turned off. 'er called Melissa, whocontacted the gas company and explained patient would be late on her bill. They informed her they would put a note on the account and not disconnect. 'er updated patient. 'er will continue to follow.Treatment Plan from 01/05/2017 12:38 PM: Care Management Note : BODY,TD,TH,BUTTON,INPUT,SELECT,TEXTAREA{FONT-SIZE: 10pt; FONT-FAMILY: [employer]; COLOR: black;} P,DIV,UL,OL,BLOCKQUOTE{MARGIN- BOTTOM: 0px; MARGIN-TOP: 0px;} BODY{MARGIN: 5px;}Patient developed chest pain over the weekends, and will complete a stress test today. Cardio assessed patient and is questioning a murmur. An Echo was ordered. Nursing noted that patient has became weaker since Thursday. PT/OT were ordered, and a Rehab was consulted. CM will continue to follow.Mg 1.7, Hgb 9.698.0, 72, 18, 150/70, 100 % 2L NCTreatment Plan from 01/02/2017 3:11 PM:Care Management Note : BODY,TD,TH, BUTTON,INPUT,SELECT,TEXTAREA{FONT-SIZE: 10pt; FONT-FAMILY: [employer]; COLOR: black;} P,DIV,UL,OL,BLOCKQUOTE{MARGIN-BOTTOM: 0px; MARGIN-TOP: 0px;} BODY {MARGIN: 5px;}Patient completed a mesenteric angiogram. PT/OT were ordered, and will encourage to ambulate after postop recovery. CM will continue to follow.Hgb 9.8, Alb 2.897.8, 73, 18, 165/73, 92% RATreatment Plan from 2016 2:15 PM:Care Management Note : BODY,TD,TH,BUTTON,INPUT,SELECT,TEXTAREA{FONT -SIZE: 10pt; FONT-FAMILY: [employer]; COLOR: black;} P,DIV,UL,OL,BLOCKQUOTE {MARGIN-BOTTOM: 0px; MARGIN-TOP: 0px;} BODY{MARGIN: 5px;} TIM'er met with patient to discuss discharge needs. Patient lives in a low income apartment in [place]. She states that she had been at [facility] for 2 day prior to admission, but does not want to go back there. She states she is very independent and has good support at her complex. Patient has a walker and cane at home that she can use. Patient is scheduled for a procedure tomorrow. SW' erinformed her that no decisions would have to be made until it is known if she is going to have to have additional procedures or will be ready for dc. Patient voiced understanding and had no additionalquestions. SW'er provided contact information and will continue to follow.Treatment Plan from 01/01/2017 12 :28 PM:Care Management Note : BODY,TD,TH,BUTTON,INPUT,SELECT,TEXTAREA{FONT-SIZE : 10pt; FONT-FAMILY: [employer]; COLOR: black;} P,DIV,UL,OL,BLOCKQUOTE{ MARGIN-BOTTOM: 0px; MARGIN-TOP: 0px;} BODY{MARGIN: 5px;}Patient was transferred from [facility] as an inpatient for further workup. Patient was being treated there for abd pain and pancreatitis. Lab values improved, but pain continued. There is concern for mesenteric ischemia, and will continue workup. Patient was placed on tele, continues withhome medications, IVF running, and will complete a mesenteric angiogram on Thursday. Potassium is noted to be low, and will receive a PO dose of potassium. CM will continue to follow.K 3.4, Ca 7.9, Alb 2.8, Hgb 9.498.5, 74, 20, 120/56, 97% RA Procedures Completed , on 06/25/2011 12:00 AM Immunizations No immunizations administered or ordered. Hospital Course Hospital Discharge Instructions How to care for yourself at home from 01/07/2017 10:17 AM:Discharge Activity : Activity as tolerated,May Shower,No Tub BathDischarge Diet : Modification as given by physicianDischarge Diet: : Low fat, low cholesterol, No added salt.Call your doctor if: : Fever over 101 F or severe chills,Chest pain or other unexplained symptoms,Tingling or numbness develops,A sudden increase or decrease in weight,You have persistent or worsening symptoms,If you have Heart Failure and you gain 3 pounds within 1 week or your symptoms worsen. (Weigh at home tomorrow morning)Specific Discharge Teaching Instructions provided: : YesSpecific Discharge Teaching Instructions Reviewed: : Cardiology Post Catherization InstructionsDischarge on Warfarin : No Allergies, Adverse Reactions, Alerts This section is guest relations representative of the current allergy information, at the time of the CCD generation. In the case of regeneration of the CCD, the allergy information may not reflect the state of known allergies at the time of the CCD' s subject visit. peanuts (as Food allergen) causes Moderate Hives.clindamycin causes Unknown.Iodinated Contrast Media - IV Dye causes Rash.amoxicillin causes Unknown.codeine causes Unknown.No Latex Allergy. Medication It is the responsibility of the patient or patient guest relations representative to confirm the list of medicationswith either the patient's personal care provider or the patient's follow-up care provider to ensure the patient has an appropriate list of medications to take at home. Discharge medicationsContinued medicationsacetaminophen (Tylenol Extra Strength ) 500 mg Tablet, Ordered By: KOSTAS RICE APRN Directions: 2 tablet oral every six hours PRN pain aspirin (Adult Low Dose Aspirin) 81 mg tablet,delayed release (DR/EC), Ordered By: KOSTAS RICE APRN Directions: 1 tablet oral daily clopidogrel (Plavix) 75 mg Tablet, Ordered By: KOSTAS RICE APRN Directions: 1 tablet oral daily lovastatin 40 mg Tablet, Ordered By: KOSTAS RICE APRN Directions: 1 tablet oral daily at bedtime denosumab (Prolia) 60 mg/mL Syringe, Ordered By: RICHARD LARKIN MD Directions: 1 mL subcutaneous 6 months docusate sodium 100 mg Capsule, Ordered By: RICHARD LARKIN MD Directions: 1 capsule oral twice a day PRN constipation levetiracetam 500 mg Tablet, Ordered By: RICHARD LARKIN MD Directions: 1 tablet oral twice a day melatonin 10 mg Tablet, Ordered By: RICHARD LARKIN MD Directions: 1 tablet oral daily at bedtime ondansetron HCl (Zofran (as hydrochloride)) 4 mg Tablet, Ordered By: RICHARD LARKIN MD Directions: 1 tablet oral every six hours PRN nausea or vomiting Changed medicationsmetoprolol succinate 25 mg Tablet Extended Release 24 hr, Ordered By: KOSTAS RICE APRN Directions: 0.5 tablet oral daily every evening calcium carbonate-vit D3-min [phone]-unit-mcg tablet,chewable, Ordered By: RICHARD LARKIN MD Directions: 1 tablet oral daily Stopped medicationsNone
--- OUTSIDE RECORDS SUMMARY | 2017-02-03 11:24 | External Medical Summary | Summary of Care ---
:1925 Author Name Dane Guardado M.D. Address Unavailable Unavailable , Care [...] Active Abdominal pain (789.00, R10.9) Status: Active Thoracic spine pain (724.1, M54.6) Status: Active Low back pain (724.2, M54.5) Status: Active Radiculopathy (729.2, M54.10) Status: Active Medications Name Dates Details Lovastatin [...] smoked Vital Signs Date Test Result Details 14:15 BP Systolic 118 mm[Hg] Status: BP [...] 12:00 Instructions Instructions not documented Encounters Appointment; Dane Guardado On Encounter Diagnosis: Problem [...]
--- OUTSIDE RECORDS SUMMARY | 2017-02-03 11:24 | External Medical Summary | Summary of Care ---
:1925 Author Name Richard Guardado M.D. Address [address] [place], [place] [id number] Care Team Providers Name Role Phone Richard [...] Active Macular degeneration (362.50, H35.30) Status: Active Abdominal pain (789.00, R10.9) Status: Active Bowel movement symptom (787.99, R19.8) Status: Active Medications Name Dates Details Lovastatin 40 MG Oral Tablet TAKE 1 TABLET AT BEDTIME. Quantity: 90 Refills: 3 Started -Aug-2011 ActiveAlendronate Sodium 10 MG Oral Tablet Refills: 0 Started 12-Aug-2011 ActiveAspirin 81 MG TABS TAKE [...] Refills: 0 Richard Guardado M.D. Started 20-Aug-2015 Active Allergies and Adverse Reactions Name Dates [...] smoked Vital Signs Date Test Result Details 20-Aug-2015 15:23 BP Systolic 126 mm[Hg] Status: BP Diastolic 68 mm[Hg] Status: Temperature 98.2 f Status: Heart Rate 67 /min Status: Weight 122 lb Status: O2 SAT 98 % Status: Body Mass Index Calculated 23.83 kg/m2 Status: Body Surface Area Calculated 1.51 m2 Status: Results Date Description Value Details Results not documented Plan of Care Planned Observations Name Dates Details Planned Goals not documented Goal Planned Encounters Appointment; Provider: Dale Sandoval On 10:30 Appointment; Provider: Roe Sharma On 25-Jun-2011 12:00 Instructions Instructions not documented Encounters Appointment; Richard Guardado On 20-Aug-2015 Encounter Diagnosis: Problem not documented 15:15 Appointment; Dale Sandoval On 04-May-2015 Encounter Diagnosis: Problem not documented 09:00 Appointment; Dale Sandoval On Encounter Diagnosis: Problem not documented 18:30 Appointment; Dale Sandoval On Encounter Diagnosis: Problem not documented 08:30
--- OUTSIDE RECORDS SUMMARY | 2017-02-03 11:24 | External Medical Summary | Continuity of Care Document ---
:1925 Author Organization [facility] Care Team Providers Name Role Phone ANGELIQUE, BRANDY Villa MD Unavailable Unavailable Insurance Providers Payer Name Policy Number Subscriber Name Relationship Medicare A And B [id number] Kaci Gusman 18 Self / Same As Patient [facility] [id number] Kaci Gusman 18 Self / Same As Patient Advance Directives Directive Response Recorded Date/Time Advanced Directives Unknown 11/14/15 10:39pm Type Living Will 11/14/15 10:39pm Type Living Will 11/14/15 10:39pm Other Living Will status in motion; no DPOA yet 11/14/15 10:39pm Chief Complaint and Reason for Visit Chief Complaint ABDOMINAL PAIN, PANCREATITIS Reason for Visit Dehydration Seizure disorder Problems Active Problems Medical Problem Onset Date Status Abdominal pain ~04/2013 Resolved Abdominal pain ~06/27/2013 Resolved Altered mental status 05/06/2012 Resolved Anxiety 05/06/2012 Chronic Constipation ~10/28/2015 Acute Dehydration Unknown Acute Fall ~11/01/2014 Resolved Fracture of fifth metatarsal bone of left foot 11/02/2014 Resolved Fracture of metatarsal of left foot, closed ~11/02/2014 Resolved Gastrointestinal hemorrhage 12/30/2011 Resolved Generalized anxiety disorder ~07/16/2013 Chronic Hyponatremia Unknown Resolved Hypothyroidism ~07/16/2013 Chronic Hypoxia Unknown Resolved Injury of foot ~11/01/2014 Resolved Left against medical advice Unknown Resolved Malaise and fatigue Unknown Resolved Neck pain 05/29/2013 Resolved Pancreatitis ~11/14/2015 Acute Physical deconditioning 11/05/2014 Resolved Risk for falls Unknown Chronic Seizure disorder ~07/16/2013 Chronic Medications Current Home Medications Medication Dose Units Route Directions Days/Qty Instructions Start Date Lovastatin 40 Mg 40 Mg ORAL Bedtime 05/12/12 Levetiracetam 500 500 Mg ORAL Twice A Day 11/02/14 Mg Melatonin/Pyridox 10 Mg ORAL Bedtime 11/02/14 ine Hcl (B6) 1 Each Docusate Sodium 100 Mg ORAL Twice A Day 11/02/14 100 Mg Multivitamin 1 1 Each ORAL Daily 11/02/14 Each Metoprolol 25 Mg ORAL Bedtime 09/07/15 Succinate 25 Mg Calcium Carb 1 Each ORAL Daily 09/07/15 & Cit/Vitamin D3 1 Each [facility] 3 Polyunsat 1,000 Mg ORAL Daily 09/07/15 Fatty Acids 1,000 Mg Vit C/Vit E 1 Each ORAL Daily 09/07/15 Acetate/Lutein/Mi n 1 Each Denosumab 60 Mg/1 60 Mg Sub-Q Every 6 Months 09/07/15 Ml Acetaminophen 650 Mg ORAL Every 6 Hours as 0 10/30/15 (Tylenol) 325 Mg needed for Pain Magnesium 30 Ml ORAL Four Times Daily 0 If no BM in 48 10/30/15 Hydroxide 400 as needed for hours, start Mg/5 Ml Constipation taking every 6 hours until at least 2 bowel movements. Aspirin 81 Mg 81 Mg ORAL Daily 11/16/15 Polyethylene 17 Gm ORAL Daily as needed 1 11/21/15 Glycol 3350 17 Gm for Constipation Hyoscyamine 0.125 Mg ORAL Before Meals And 40 11/21/15 Sulfate 0.125 Mg At Bedtime as needed for Abdominal Pain Past Home Medications Medication Directions Ordered Status Aspirin 81 Mg Tablet, 81 Mg Oral Daily 12/30/11 Discontinued Lovastatin 40 Mg Tablet, 40 Mg Daily 12/30/11 Discontinued Oral Alendronate Sodium 5 Mg Tablet, 5 Daily 12/30/11 Discontinued Mg Oral Quetiapine Fumarate 25 Mg Tablet, Bedtime as needed 12/30/11 Discontinued 25 Mg Oral Acetaminophen 500 Mg Tab, 500 Mg Every 4HRS as needed 01/01/12 Discontinued Oral Ciprofloxacin 500 Mg Tablet, 1 Twice A Day 01/01/12 Discontinued Tab Oral Levetiracetam 250 Mg Tablet, 250 Twice A Day 01/01/12 Discontinued Mg Oral Metoprolol Succinate 25 Mg Daily 01/01/12 Discontinued Tab.er.24h, 25 Mg Oral Metronidazole 250 Mg Tablet, 250 Three Times A Day 01/01/12 Discontinued Mg Oral Famotidine 10 Mg Tablet, 05/06/12 Discontinued Hydroxyzine Hcl 10 Mg Tablet, 05/06/12 Discontinued Sucralfate (Carafate) 1 Gm 05/06/12 Discontinued Tablet, Metoprolol Tartrate 25 Mg Tablet, Twice A Day 05/12/12 Discontinued 25 Mg Oral Aspirin 81 Mg Tablet.dr, 81 Mg Daily 05/29/13 Discontinued Oral Tramadol Hcl (Ultram) 50 Mg Q4-6 Hrs as needed 05/29/13 Discontinued Tablet, 50 Mg Oral Omeprazole 20 Mg Capsule.dr, 20 Twice A Day 06/24/13 Discontinued Mg Oral Cephalexin 500 Mg Capsule, 500 Mg Three Times A Day 06/24/13 Discontinued Oral Sucralfate (Carafate) 1 Gm Four Times Daily 06/24/13 Discontinued Tablet, 1 Gm Oral Tramadol Hcl (Ultram) 50 Mg Q6 Hrs as needed for Pain 06/29/13 Discontinued Tablet, 1-2 Tab.sa Oral [Calcium + Vit D3] , 1 Tab Oral Daily @ 0800 07/16/13 Discontinued Melatonin 300 Mcg Tablet, 600 Mcg Bedtime 07/16/13 Discontinued Oral [Osteoporosis Med] , 70 Mg Oral Weekly 07/16/13 Discontinued Acetaminophen/Hydrocodone Bitart Every 6 Hours as needed for 11/06/14 Discontinued 1 Tab Tab, 0.5 Tab Oral Pain Alprazolam (Xanax) 0.25 Mg Twice A Day as needed for 09/07/15 Discontinued Tablet, 0.25 Mg Oral Anxiety Polyethylene Glycol 3350 17 Gm Daily 10/30/15 Discontinued Powd.pack, 17 Gm Oral Social History Social History Problem Response Recorded Date/Time Onset Date Status 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 Exposure to occupational No 11/14/2015 10:39pm hazards Query Response Start Date Stop Date Smoking Status Never smoker Hospital Discharge Instructions Patient's Instructions Instructions Instructions You were admitted for abdominal pain and diarrhea. The diarrhea has improved. Many studies were done to diagnose your abdominal pain. They have been sent to Dr. Castro for evaluation. You have been started on a medication called hyoscyamine for abdominal pain. You will need to take this only when you are having episodes of increased abdominal pain. You will need to only take your stool softeners (MiraLax and MOM) when you are constipated, please do not take them daily as this is causing diarrhea and worsening your abdominal pain. Please continue your other medications as previously prescribed. You have an appointment with Dr. Castro scheduled for ThursdayNovember 29 1:45 pm. You have an appointment scheduled with Dr. Ramos on November 22 at 11:30am. Discharge Plan of Care Discharge Plan of Care #1 Problem: Pain Goal: Follow meds directions Instructions for meeting goal: See printed material from Dr. Dasilva on dismissal from [facility]. Follow new medication regimen. Plan of Care Discharge Date 11/21/15 2:20pm Disposition 01 HOME OR SELF-CARE Prescriptions See Medication Section Referrals BRANDY MERINO MD (Family Practice) - 11/23/15 Address: [address] [place] [id number] Castro in [place] (Physician Referral) - 11/30/15 Care Plan and Goals See Discharge Instructions Section Functional Status Query Response Date Recorded Activity Ambulate November 21, 2015 12:21pm Bathroom Chair Assistance Required Standby assistance November 21, 2015 12:21pm Level of Conscious Alert November 21, 2015 9:28am Oriented x4 Movement Moves extremities November 21, 2015 9:28am Weakness Allergies, Adverse Reactions, Alerts Allergen Type Severity Reaction Status Last Updated Iodinated Contrast Allergy Severe Rash, face turned Active 11/14/15 Media - IV Dye completely red. Codeine Adverse Reaction Unknown FALL Active 11/14/15 Levothyroxine sodium Allergy Unknown Hives Active 11/14/15 Amoxicillin Allergy Unknown Active 11/14/15 oxacillin Allergy Severe Hives and rash Active 11/14/15 Immunizations Name Given Type Status Date Influenza Vaccine Received if Current 01/20/15 Historical Historical Vital Signs Acute Vital Signs Vital Response Date/Time Temperature (Fahrenheit) 97.7 11/21/2015 8:14am Pulse 64 bpm 11/21/2015 8:14am Respirations 18 11/21/2015 8:14am Height 4 ft 9 in Weight 115 lb Body Mass Index 24.0 kg/m^2 Results Pending Laboratory Results Test Name Collection Date/Time Procedures Procedure Status Date Provider(s) INJECT SPINE LUMBAR/SACRAL Completed 10/24/15 [address] [place] ACCOUNT GROUP SUPERVISOR Completed 10/24/15 ROUTINE VENIPUNCTURE Completed 10/28/15 ROUTINE VENIPUNCTURE Completed 10/28/15 X-RAY EXAM OF ABDOMEN Completed 10/28/15 CT ABD & PELVIS W/O CONTRAST Completed 10/28/15 COMPREHEN METABOLIC PANEL Completed 10/28/15 RENAL FUNCTION PANEL Completed 10/28/15 RENAL FUNCTION PANEL Completed 10/28/15 URINALYSIS AUTO W/O SCOPE Completed 10/28/15 MICROSCOPIC EXAM OF URINE Completed 10/28/15 ASSAY OF CK (CPK) Completed 10/28/15 CREATINE MB FRACTION Completed 10/28/15 ASSAY OF LIPASE Completed 10/28/15 ASSAY OF MAGNESIUM Completed 10/28/15 ASSAY OF MAGNESIUM Completed 10/28/15 ASSAY OF TROPONIN QUANT Completed 10/28/15 COMPLETE CBC W/AUTO DIFF WBC Completed 10/28/15 COMPLETE CBC W/AUTO DIFF WBC Completed 10/28/15 C-REACTIVE PROTEIN Completed 10/28/15 URINE BACTERIA CULTURE Completed 10/28/15 ELECTROCARDIOGRAM TRACING Completed 10/28/15 HYDRATE IV INFUSION ADD-ON Completed 10/28/15 THER/PROPH/DIAG INJ IV PUSH Completed 10/28/15 TX/PRO/DX INJ NEW DRUG ADDON Completed 10/28/15 TX/PRO/DX INJ SAME DRUG VACUUM CLEANER REPAIR PERSON Completed 10/28/15 TX/PRO/DX INJ SAME DRUG VACUUM CLEANER REPAIR PERSON Completed 10/28/15 EMERGENCY DEPT VISIT Completed 10/28/15 Completed 10/28/15 Completed 10/28/15 Completed 10/28/15 Completed 10/28/15 Completed 10/28/15 Completed 10/28/15 Completed 10/28/15 Completed 10/28/15 Completed 10/28/15 Completed 10/28/15 Completed 10/28/15 Completed 10/28/15 Completed 10/28/15 Completed 10/28/15 Completed 10/28/15 Completed 10/28/15 Completed 10/28/15 Completed 10/28/15 Completed 10/28/15 Completed 10/28/15 Completed 10/28/15 Completed 10/28/15 Completed 10/28/15 Completed 10/28/15 Completed 10/28/15 Completed 10/28/15 Completed 10/28/15 Completed 10/28/15 Completed 10/28/15 Completed 10/28/15 Completed 10/28/15 Completed 10/28/15 Completed 10/28/15 Completed 10/28/15 Completed 10/28/15 Completed 10/28/15 Completed 10/28/15 Completed 10/28/15 Completed 10/28/15 Completed 10/28/15 Completed 10/28/15 Completed 10/28/15 Completed 10/28/15 Encounters Encounter Location Arrival/Admit Date Discharge/Depart Date Attending Provider Discharged Danisha 11/14/15 9:58pm 11/21/15 2:20pm [facility] Inpatient (obs) [facility] HAFSA Cedillo MD Discharged Danisha 10/28/15 4:52am 10/30/15 4:46pm [facility] Inpatient (obs) [facility] GENEVA Fountain MD Registered [place] 10/24/15 12:01pm [facility] BRANDY Villa MD Recent Diagnosis Dehydration Seizure disorder
--- OUTSIDE RECORDS SUMMARY | 2017-02-03 11:24 | External Medical Summary | Summary of Care ---
:1925 Author Name Richard Guardado M.D. Address [address] [place], [place] [id number] Care Team Providers Name Role Phone Richard [...] Epidermal inclusion cyst (706.2, L72.0) Status: Active Hypertension (401.9, I10) Status: Active Osteoporosis (733.00, M81.0) Status: Active Stomach pain (536.8, R10.9) Status: Active Medications Name Dates Details [...] Active Past Medical History Name Dates Details History of cardiac disorder (V12.50, Z86.79) Status: Resolved History of deep venous thrombosis (V12.51, Z86.718) Status: Resolved History of Dementia (294.20, F03.90) Status: Resolved History of Diverticulosis (562.10, K57.90) Status: Resolved History of Fracture of metatarsal, closed (825.25, S92.309A) Status: Resolved History of glaucoma (V12.49, Z86.69) Status: Resolved History of hypothyroidism (V12.29, Z86.39) Status: Resolved History of iron deficiency anemia (V12.3, Z86.2) Status: Resolved History of Macular degeneration (362.50, H35.30) Status: Resolved History of skin cancer (V10.83, [...]
--- OUTSIDE RECORDS SUMMARY | 2017-02-03 11:24 | External Medical Summary | Summary of Care ---
:1925 Author Name Richard Guardado M.D. Address Unavailable Unavailable , Care Team Providers Name Role Phone Richard Guardado M.D. Unavailable Unavailable Dane Guardado M.D. Unavailable Unavailable RiceRichard Unavailable Unavailable Unavailable Unavailable Unavailable Functional Status [...] NIGHT AT BEDTIME Quantity: 30 Refills: 11 Rice M.D., Richard Start 22-Feb-2016 Active Prolia 60 MG/ML Subcutaneous Solution INJECT SUBCUTANEOUSLY 60 MG / 1 ML EVERY 6 MONTHS Quantity: 1 Refills: 0 Rice M.DCoral, Richard Start Active Sertraline HCl - 25 MG Oral Tablet TAKE 1 TABLET DAILY. Quantity: 60 Refills: 2 Debby Dane Jade Start 02-Apr-2016 Active Aspirin-Dipyridamole ER 25-200 MG Oral Capsule Extended Release 12 Hour TAKE 1 CAPSULE TWICE DAILY WITH MEALS. Quantity: 60 Refills: 5 Debby M.D., Richard Start Active Allergies and Adverse Reactions [...] smoked Vital Signs Date Test Result Details No Known Vitals to report Results Date Description Value Details Results not documented Plan of Care Name Dates Details Planned Observations Planned Goals not documented Planned Encounters Appointment; Provider: Mirella Kidd M.D. On 27-Jan-2017 14:15 Appointment; Provider: Richard Guardado M.D. On 07:45 Appointment; Provider: Dale Sandoval M.D. On 09:00 Interventions Provided Medication ChangesAspirin-Dipyridamole ER 25-200 MG Oral Capsule Extended Release 12 Hour - Start Instructions Name Dates Details Instructions [...]
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
--- OUTSIDE RECORDS SUMMARY | 2017-02-03 11:25 | External Medical Summary | Summary of Care ---
:1925 Author Name Omar Castro M.D. Address Unavailable Unavailable , Care Team [...]
--- OUTSIDE RECORDS SUMMARY | 2017-02-03 11:25 | External Medical Summary | Summary of Care ---
:1925 Author Name Richard Guardado M.D. Address Unavailable Unavailable , Care Team Providers Name Role Phone Richard Guardado M.D. Unavailable Unavailable Elizbaeth Woodard M.D. Unavailable Unavailable Richard Guardado Primary [...]
--- OUTSIDE RECORDS SUMMARY | 2017-02-03 11:25 | External Medical Summary | Summary of Care ---
:1925 Author Name Richard Guardado M.D. Address [address] [place], [place] [id number] Care Team Providers Name Role Phone Richard [...] Status: Active Nausea (787.02, R11.0) Status: Active Medications Name Dates Details Lovastatin 40 MG Oral Tablet TAKE 1 TABLET AT BEDTIME. Quantity: 90 Refills: 3 Started 12-Aug-2011 ActiveAlendronate Sodium 10 MG Oral Tablet Refills: [...] Refills: 2 Richard Guardado M.D. Started 28-Aug-2015 Active Allergies and Adverse Reactions Name Dates [...]
--- OUTSIDE RECORDS SUMMARY | 2017-02-03 11:25 | External Medical Summary | Summary of Care ---
[...] M79.1) Status: Active Medications Name Dates Details Lovastatin [...] NIGHT AT BEDTIME Quantity: 30 Refills: 11 Debby Jade, Richard Start 22-Feb-2016 Active Prolia 60 MG/ML Subcutaneous Solution INJECT SUBCUTANEOUSLY 60 MG / 1 ML EVERY 6 MONTHS Quantity: 1 Refills: 0 Debby Jade, Richard Start Active Clopidogrel Bisulfate 75 MG Oral Tablet TAKE 1 TABLET DAILY. Quantity: 90 Refills: 2 Debby Jade, Richard Start 01-Jan-2016 Active Sulfamethoxazole-Trimethoprim 800-160 MG Oral Tablet TAKE 1 TABLET TWICE DAILY UNTIL FINISHED. Quantity: 14 Refills: 0 Dale Sandoval M.D. Start 01-Jan-2016 Active Meloxicam 7.5 MG Oral Tablet TAKE 1 TABLET DAILY WITH FOOD. Quantity: 30 Refills: 1 Debby Jade, Richard Start 14-Feb-2016 Active Sertraline HCl - 25 MG Oral Tablet TAKE 1 TABLET DAILY. Quantity: 60 Refills: 2 Dane Guardado M.D. Start 02-Apr-2016 Active Allergies and Adverse Reactions [...] Provider: Mirella Kidd M.D. On 29-Jul-2016 13:30 Interventions Provided Medication ChangesLevETIRAcetam 500 MG Oral Tablet - Renew Instructions Name Dates Details Instructions [...]
--- OUTSIDE RECORDS SUMMARY | 2017-02-03 11:25 | External Medical Summary | Summary of Care ---
:1925 Author Name Richard Guardado M.D. Address Unavailable Unavailable , Care Team Providers Name Role Phone Debby Jade, Richard Unavailable Unavailable Luly Sandoval M.D. Unavailable Unavailable [place] Unavailable Unavailable Unavailable Unavailable Unavailable Functional Status [...] Active Anxiety disorder (300.00, F41.9) Status: Active Medications Name Dates Details Lovastatin 40 MG Oral Tablet TAKE 1 TABLET AT BEDTIME. Quantity: 30 Refills: 6 Richard Guardado M.D. Start 12-Aug-2011 Active Aspirin 81 MG TABS TAKE 1 TABLET DAILY. Refills: 0 Start 12-Aug-2011 Active LevETIRAcetam 500 MG Oral Tablet TAKE 1 TABLET BY MOUTH TWICE DAILY MUST MAKE APPT TO GET MORE REFILLS Quantity: 60 Refills: 3 Richard Guardado M.D. Start Active Melatonin 1 MG Oral [...] 1 TABLET DAILY. Quantity: 30 Refills: 6 [place] M.D., Richard Start 01-Jan-2016 Active Sulfamethoxazole-Trimethoprim 800-160 [...] M.D. On 16-May-2016 10:30 Interventions Provided Medication ChangesMeloxicam 7.5 MG Oral Tablet - Start Instructions Name Dates Details Instructions not documented Encounters Appointment; Dale Sandoval M.D. On 18-Jan-2016 Encounter [...] Diagnosis: Problem not documented 14:15 Appointment; Richard uGardado M.D. On 20-Aug-2015 Encounter Diagnosis: Problem not documented 15:15 Appointment; Dale Sandoval M.D. On 04-May-2015 Encounter Diagnosis: Problem not documented 09:00 Appointment; Dale Sandoval M.D. On Encounter Diagnosis: Problem not documented 18:30 Appointment; Dale Sandoval M.D. On Encounter Diagnosis: Problem not documented 08:30
--- OUTSIDE RECORDS SUMMARY | 2017-02-03 11:25 | External Medical Summary | Summary of Care ---
:1925 Author Name Richard Guardado M.D. Address Unavailable Unavailable , Care Team Providers Name Role Phone Richard Guardado M.D. Unavailable Unavailable Dane Guardado M.D. Unavailable Unavailable CharlotteRichard Unavailable Unavailable Unavailable Unavailable Unavailable Functional Status Functional Status Health Issues Name Dates Details Functional status health issues are not documented Status: Cognitive Status Health Issues Name Dates Details Cognitive status health issues are not documented Status: Problems Name Dates Details Fainting (780.2, R55) Status: Active Callus (700, L84) Status: Active EP (epilepsy) (345.90, G40.909) Status: Active Actinic keratosis (702.0, L57.0) Status: [...] Epidermal inclusion cyst (706.2, L72.0) Status: Active Squamous cell carcinoma of skin of cheek (173.32, C44.329) Status: Active Diarrhea (787.91, R19.7) Status: Active Insomnia (780.52, G47.00) Status: Active Abdominal pain (789.00, R10.9) Status: [...] fingers or toes (785.9, R09.89) Status: Active Medications Name Dates Details Lovastatin [...] Refills: 0 Richard Guardado M.D. Start Active Sertraline HCl - 25 MG Oral Tablet TAKE 1 TABLET DAILY. Quantity: 60 Refills: 2 Dane Guardado M.D. Start 02-Apr-2016 Active Clopidogrel Bisulfate 75 MG Oral Tablet TAKE 1 TABLET DAILY.Dispense tablets manufactured by GoustouticalsPatient had a reaction to same med from a different co op Quantity: 90 Refills: 3 Debby Jade, Richard Start Active Allergies and Adverse [...]
--- OUTSIDE RECORDS SUMMARY | 2017-02-03 11:26 | External Medical Summary | Summary of Care ---
:1925 Author Name Richard Guardado M.D. Address Unavailable Unavailable , Care Team Providers Name Role Phone Richard Guardado M.D. Unavailable Unavailable Dane Guardado M.D. Unavailable Unavailable DavisRichard Unavailable Unavailable Unavailable Unavailable Unavailable Functional Status [...] Mesenteric artery insufficiency (557.0, K55.1) Status: Active Medications Name Dates Details Lovastatin [...] NIGHT AT BEDTIME Quantity: 30 Refills: 11 Davis Yasmany, Richard Start 22-Feb-2016 Active Prolia 60 MG/ML Subcutaneous Solution INJECT SUBCUTANEOUSLY 60 MG / 1 ML EVERY 6 MONTHS Quantity: 1 Refills: 0 Debby Jade, Richard Start Active Sertraline HCl - 25 MG Oral Tablet TAKE 1 TABLET DAILY. Quantity: 60 Refills: 2 Dane Guardado M.D. Start 02-Apr-2016 Active Clopidogrel Bisulfate 75 MG Oral Tablet TAKE 1 TABLET DAILY.Dispense tablets manufactured by RevelenssPatient had a reaction to same med from a different ceramic tile setter Quantity: 90 Refills: 3 [place] Jade, Richard Start Active Allergies and Adverse [...]
--- OUTSIDE RECORDS SUMMARY | 2017-02-03 11:26 | External Medical Summary | Summary of Care ---
:1925 Author Name Richard Guardado M.D. Address [address] [place], [place] [id number] Care Team Providers Name Role Phone Richard [...] leg pain, right (729.5, M79.604) Status: Active Medications Name Dates Details Lovastatin [...] Body Surface Area Calculated 1.5 m2 Status: 20-Aug-2015 15:23 BP Systolic 126 mm[Hg] Status: [...]
--- OUTSIDE RECORDS SUMMARY | 2017-02-03 11:26 | External Medical Summary | Summary of Care ---
[...] DAILY WITH FOOD. Quantity: 30 Refills: 1 Richard Guardado M.D. Start 14-Feb-2016 Active Sertraline HCl - 25 [...] M.D. On 29-Jul-2016 13:30 Interventions Provided Medication ChangesLovastatin 40 MG Oral Tablet - Renew Instructions Name [...] Encounter Diagnosis: Problem not documented 15:00 Appointment; Daen Guardado M.D. On Encounter Diagnosis: Problem not [...]
--- OUTSIDE RECORDS SUMMARY | 2017-02-03 11:26 | External Medical Summary | Summary of Care ---
:1925 Author Name Richard Guardado M.D. Address Unavailable Unavailable , Care Team Providers Name Role Phone Richard Guardado M.D. Unavailable Unavailable Daen Guardado M.D. Unavailable Unavailable DebbyRichard Unavailable Unavailable Unavailable [...] AT BEDTIME Quantity: 30 Refills: 11 Debby M.D., Richard Start 22-Feb-2016 Active Prolia 60 MG/ML Subcutaneous Solution INJECT SUBCUTANEOUSLY 60 MG / 1 ML EVERY 6 MONTHS Quantity: 1 Refills: 0 Debby M.D., Richard Start Active Clopidogrel Bisulfate 75 MG Oral Tablet TAKE 1 TABLET DAILY. Quantity: 90 Refills: 2 Debby M.D., Richard Start 01-Jan-2016 Active Sertraline HCl - 25 MG Oral Tablet TAKE 1 TABLET DAILY. Quantity: 60 Refills: 2 Tate M.D., Dane Start 02-Apr-2016 Active Allergies and [...] Appointment; Provider: Richard Guardado M.D. On 07:45 Interventions Provided Medication ChangesLovastatin 40 MG Oral [...]
--- OUTSIDE RECORDS SUMMARY | 2017-02-03 11:26 | External Medical Summary | Summary of Care ---
:1925 Author Name Richard Guardado M.D. Address Unavailable Unavailable , Care Team Providers Name Role Phone Debby Jade, Richard Unavailable Unavailable Elizabeth Woodard M.D. Unavailable Unavailable WilkinRichard Unavailable Unavailable Unavailable Unavailable Unavailable Functional Status [...] Active Abdominal pain (789.00, R10.9) Status: Active Mesenteric artery insufficiency (557.0, K55.0) Status: Active Medications Name Dates Details Lovastatin [...] Hour TAKE 1 TABLET DAILY. Refills: 0 Rihcard Guardado M.D. Start 20-Aug-2015 Active Prolia 60 MG/ML Subcutaneous Solution INJECT SUBCUTANEOUSLY 60 MG / 1 ML EVERY 6 MONTHS Quantity: 1 Refills: 0 Richard Guardado M.D. Start Active Silenor 3 MG Oral Tablet TAKE 1 TABLET Bedtime Quantity: 8 Refills: 0 Debby M.Richard Neil Start 23-Nov-2015 Active Allergies and Adverse Reactions [...] smoked Vital Signs Date Test Result Details 23-Nov-2015 11:24 BP Systolic 128 mm[Hg] Status: Comments: Location: LUE; Position: Standing BP Diastolic 70 mm[Hg] Status: Comments: Location: LUE; Position: Standing Temperature 97.8 f Status: Comments: Method: Tympanic Heart Rate 66 /min Status: Comments: Location: ; Weight 115 lb Status: Physical Findings 95 Status: Comments: O2 Saturation Body Mass Index Calculated 22.46 kg/m2 Status: Body Surface Area Calculated 1.48 m2 Status: 14:02 BP Systolic 132 mm[Hg] Status: Comments: Location: RUE; Position: Sitting BP Diastolic 60 mm[Hg] Status: Comments: Location: RUE; Position: Sitting Temperature 97.9 f Status: Comments: Method: Oral Heart Rate 69 /min Status: Comments: Location: [...] Sandoval M.D. On 16-May-2016 10:30 Appointment; Provider: Omar Castro M.D. On 30-Nov-2015 13:45 Interventions Provided Medication ChangesSilenor 3 MG Oral Tablet - Start Instructions Name Dates Details Instructions not documented Encounters Appointment; Omar Castro M.D. On Encounter Diagnosis: [...]
--- OUTSIDE RECORDS SUMMARY | 2017-02-03 11:26 | External Medical Summary | Summary of Care ---
:1925 Author Name Richard Guardado M.D. Address Unavailable Unavailable , Care Team Providers Name Role Phone Debby Jade, Richard Unavailable Unavailable Elizabeth Woodard M.D. Unavailable Unavailable CaminoRichard Unavailable Unavailable Unavailable Unavailable Unavailable Functional Status [...] Status: Active Folliculitis (704.8, L73.9) Status: Active Medications Name Dates Details Lovastatin [...] 0 Richard Guardado M.D. Start 23-Nov-2015 Active Clindamycin HCl - 150 MG Oral Capsule TAKE 1 CAPSULE 3 times daily Quantity: 30 Refills: 1 Richard Guardado M.D. 25-Dec-2015 Active Allergies and Adverse Reactions Name Dates [...] 07-Dec-2015 [facility] (outside facility) Ordered: 11-Dec-2015 GASTRIC EMPTYING Ordered: CT ABDOMEN WITH ORAL [...] smoked Vital Signs Date Test Result Details 25-Dec-2015 16:17 BP Systolic 110 mm[Hg] Status: Comments: Location: ; Position: BP Diastolic 64 mm[Hg] Status: Comments: Location: ; Position: Temperature 97.5 f Status: Heart Rate 74 /min Status: Comments: Location: ; Weight 116 lb Status: Physical Findings 99 Status: Comments: O2 Saturation Body Mass Index Calculated 22.66 kg/m2 Status: Body Surface Area Calculated 1.48 m2 Status: 07-Dec-2015 08:48 BP Systolic 114 mm[Hg] Status: Comments: Location: ; Position: BP Diastolic 62 mm[Hg] Status: Comments: Location: ; Position: Heart Rate 68 /min Status: Comments: Location: ; Weight 111.5 lb Status: Body Mass Index Calculated 21.78 kg/m2 Status: Body Surface Area Calculated 1.46 m2 Status: 30-Nov-2015 14:04 BP Systolic 154 mm[Hg] Status: Comments: Location: LUE; Position: Sitting BP Diastolic 73 mm[Hg] Status: Comments: Location: LUE; Position: Sitting Heart Rate 77 /min Status: Comments: Location: ; Physical Findings 16 Status: Comments: Respiration Height 60 in Status: Weight 112 lb Status: Body Mass Index Calculated 21.87 kg/m2 Status: Body Surface Area Calculated 1.46 m2 Status: Results Date Description Value Details Results not documented Plan of Care Name Dates Details Planned Observations Planned Goals not documented Planned Encounters Appointment; Provider: Dale Sandoval M.D. On 16-May-2016 10:30 Appointment; Provider: Mirella Kidd M.D. On 01-Jan-2016 16:00 Interventions Provided Medication ChangesClindamycin HCl - 150 [...]
--- OUTSIDE RECORDS SUMMARY | 2017-02-03 11:27 | External Medical Summary ---
:1925 Author Name GENERATED, SYSTEM Care Team Providers Name Role Phone MD MERINO BRIAN Primary Care Provider [phone] Reason For Visit Chief Complaint ABDNORMAL ANGIOGRAM,ABDOMONAL PAIN ABDOMAL ABDOMONAL ULTRA,SOUND Social History Functional Status Vital Signs Results Problems Encounter Diagnosis No relevant problems exist. Encounters Encounter Diagnosis No relevant problems exist. Plan of Care Procedures Completed , on 06/25/2011 12:00 AM Immunizations No immunizations administered or ordered. Hospital Course Hospital Discharge Instructions Allergies, Adverse Reactions, Alerts Iodinated Contrast Media - IV Dye causes Rash.amoxicillin causes Unknown.codeine causes Unknown.No Latex Allergy. Medication It is the responsibility of the patient or patient packaging sales representative to confirm the list of medicationswith either the patient's personal care provider or the patient's follow-up care provider to ensure the patient has an appropriate list of medications to take at home. Discharge medicationsNew medicationsclopidogrel (Plavix) 75 mg Tablet, Ordered By: JOE KELLY MD Directions: 1 tablet oral daily Continued medicationslevetiracetam 500 mg Tablet, Ordered By: JOE KELLY MD Directions: 1 tablet oral daily metoprolol succinate 25 mg Tablet Extended Release 24 hr, Ordered By: JOE KELLY MD Directions: 1 tablet oral daily every evening doxepin (Silenor) 3 mg Tablet, Ordered By: JOE KELLY MD Directions: 1 tablet oral daily at bedtime denosumab (Prolia) 60 mg/mL Syringe, Ordered By: JOE KELLY MD Directions: 1 mL subcutaneous every six months acetaminophen (Tylenol Extra Strength) 500 mg Tablet, Ordered By: JOE KELLY MD Directions: 2 tablet oral every six hours PRN pain multivit with min-folic acid rhareh Tablet, Ordered By: JOE KELLY MD Directions: 1 tablet oral daily cyanocobalamin (vitamin B-12) 500 mcg Tablet, Ordered By: JOE KELLY MD Directions: 1 tablet oral daily calcium carbonate 500 mg calcium (1,250 mg) Tablet, Ordered By: JOE KELLY MD Directions: 1 tablet oral daily melatonin 1 mg Tablet, Ordered By: JOE KELLY MD Directions: 1 tablet oral daily at bedtime lovastatin 40 mg Tablet, Ordered By: JOE KELLY MD Directions: 1 tablet oral daily at bedtime Changed medicationsaspirin 81 mg tablet,delayed release (DR/EC), Ordered By: JOE KELLY MD Directions: 1 tablet oral daily Stopped medicationsNone
--- OUTSIDE RECORDS SUMMARY | 2017-02-03 11:27 | External Medical Summary | Summary of Care ---
[...] Status: Active Depression (311, F32.9) Status: Active Medications Name Dates Details Lovastatin 40 MG Oral Tablet TAKE 1 TABLET AT BEDTIME. Quantity: 30 Refills: 6 Richard Guardado M.D. Start 12-Aug-2011 Active Aspirin 81 MG TABS TAKE 1 TABLET DAILY. Refills: 0 Start 12-Aug-2011 Active LevETIRAcetam 500 MG Oral Tablet TAKE 1 TABLET BY MOUTH TWICE DAILY MUST MAKE APPT TO GET MORE REFILLS Quantity: 60 Refills: 3 DebbyRichard cui M.D. Start Active Melatonin 1 MG Oral [...] NIGHT AT BEDTIME Quantity: 30 Refills: 11 [place] Richard Jade 22-Feb-2016 Active Prolia 60 MG/ML Subcutaneous Solution [...]
--- OUTSIDE RECORDS SUMMARY | 2017-02-03 11:27 | External Medical Summary | Continuity of Care Document ---
:1925 Author Organization [facility] Care Team Providers Name Role Phone ANGELIQUEBRANDY HERNANDEZ MD Unavailable Unavailable Insurance Providers Payer Name Policy Number Subscriber Name Relationship Medicare A And B [id number] Kaci Gusman 20 Self / Same As Patient [facility] [id number] Kaci Gusman 20 Self / Same As Patient Advance Directives Directive Response Recorded Date/Time Advanced Directives Unknown 08/19/15 7:19pm Type Living Will 08/19/15 7:19pm Type Living Will 08/19/15 7:19pm Other Living Will status unknown ; pt. states no 08/19/15 7:19pm DPOA Chief Complaint and Reason for Visit Chief Complaint Cardiac Complaint Reason for Visit Left against medical advice Problems Active Problems Medical Problem Onset Date Status Abdominal pain ~04/2013 Resolved Abdominal pain ~06/27/2013 Resolved Altered mental status 05/06/2012 Resolved Anxiety 05/06/2012 Chronic Fall ~11/01/2014 Acute Fracture of fifth metatarsal bone of left foot 11/02/2014 Acute Fracture of metatarsal of left foot, closed ~11/02/2014 Acute Gastrointestinal hemorrhage 12/30/2011 Resolved Generalized anxiety disorder ~07/16/2013 Chronic Hypothyroidism ~07/16/2013 Chronic Injury of foot ~11/01/2014 Acute Left against medical advice Unknown Acute Malaise and fatigue Unknown Acute Neck pain 05/29/2013 Resolved Physical deconditioning 11/05/2014 Acute Risk for falls Unknown Chronic Seizure disorder ~07/16/2013 Chronic Medications Current Home Medications Medication Dose Units Route Directions Days/Qty Instructions Start Date Lovastatin 40 Mg 40 Mg ORAL Bedtime 05/12/12 Metoprolol Tartrate 25 Mg ORAL Twice A Day 05/12/12 25 Mg Aspirin 81 Mg 81 Mg ORAL Daily 05/29/13 Omeprazole 20 Mg 20 Mg ORAL Twice A Day 06/24/13 [Calcium + Vit D3] 1 Tab ORAL Daily @ 0800 07/16/13 Levetiracetam 500 500 Mg ORAL Twice A Day 11/02/14 Mg Melatonin/Pyridoxin 1 Each ORAL Bedtime 11/02/14 e Hcl (B6) 1 Each Docusate Sodium 100 100 Mg ORAL Daily 11/02/14 Mg Multivitamin 1 Each 1 Each ORAL Daily 11/02/14 Acetaminophen/[place] 0.5 Tab ORAL Every 6 Hours as 20 11/06/14 codone Bitart 1 Tab needed for Pain Past Home Medications Medication Directions Ordered Status Aspirin 81 Mg Tablet, 81 Mg Oral Daily 12/30/11 Discontinued Lovastatin 40 Mg Tablet, 40 Mg Oral Daily 12/30/11 Discontinued Alendronate Sodium 5 Mg Tablet, 5 Mg Daily 12/30/11 Discontinued Oral Quetiapine Fumarate 25 Mg Tablet, 25 Bedtime as needed 12/30/11 Discontinued Mg Oral Acetaminophen 500 Mg Tab, 500 Mg Oral Every 4HRS as needed 01/01/12 Discontinued Ciprofloxacin 500 Mg Tablet, 1 Tab Twice A Day 01/01/12 Discontinued Oral Levetiracetam 250 Mg Tablet, 250 Mg Twice A Day 01/01/12 Discontinued Oral Metoprolol Succinate 25 Mg Daily 01/01/12 Discontinued Tab.er.24h, 25 Mg Oral Metronidazole 250 Mg Tablet, 250 Mg Three Times A Day 01/01/12 Discontinued Oral Famotidine 10 Mg Tablet, 05/06/12 Discontinued Hydroxyzine Hcl 10 Mg Tablet, 05/06/12 Discontinued Sucralfate (Carafate) 1 Gm Tablet, 05/06/12 Discontinued Tramadol Hcl (Ultram) 50 Mg Tablet, Q4-6 Hrs as needed 05/29/13 Discontinued 50 Mg Oral Cephalexin 500 Mg Capsule, 500 Mg Three Times A Day 06/24/13 Discontinued Oral Sucralfate (Carafate) 1 Gm Tablet, 1 Four Times Daily 06/24/13 Discontinued Gm Oral Tramadol Hcl (Ultram) 50 Mg Tablet, Q6 Hrs as needed for Pain 06/29/13 Discontinued 1-2 Tab.sa Oral Melatonin 300 Mcg Tablet, 600 Mcg Bedtime 07/16/13 Discontinued Oral [Osteoporosis Med] , 70 Mg Oral Weekly 07/16/13 Discontinued Social History Social History Problem Response Recorded Date/Time Onset Date Status Exposure to occupational hazards No 11/02/2014 5:45am Query Response Start Date Stop Date Smoking Status Never smoker Hospital Discharge Instructions No hospital discharge instructions. Plan of Care Discharge Date 08/19/15 7:43pm Disposition 07 AGAINST MEDICAL ADVICE Prescriptions See Medication Section Referrals ANGELIQUE,BRANDY Villa MD - Additional Instructions/Education Call immediately if any symptoms change or become worse. Some of your test results may not be complete prior to your leaving the Emergency Department. The Emergency Department is not authorized to give test results over the phone. Please contact the doctor's office listed in this packet of information for your final results. Follow up with your primary care physician or return to the Emergency Department for worsening or worrisome symptoms. * Emergency Department phone number: [phone], x [phone]* MEDICAL RECORD If you need copies of your X-rays, call [phone]. If you need copies of your medical record, including lab results, a signed authorization for release of records will be required. A telephone call for release of Health Information is not allowed. BILLING Billing can sometimes be confusing and frustrating. To help avoid confusion in the future, please take a moment to acquaint yourself with the billing parties for services. SERVICE BILLING [employer] Emergency Room Services [facility] Physician Services [facility] X-rays [facility] Patients will receive bills for services from the appropriate provider. If you have any questions about your [facility] bill, our staff will be happy to assist you. Please call [phone], and ask for the billing department. THANK YOU for choosing [facility] as your emergency care provider! Care Plan and Goals ~~Discharge Care Plan~~ Problem: Patient leaves against medical advice. Goal: Return for a follow up visit with either your primary care physician or emergency room physician. Instructions: Follow up with your primary care physician or emergency room physician. Return if condition worsens. Functional Status No functional status results. Allergies, Adverse Reactions, Alerts Allergen Type Severity Reaction Status Last Updated Iodinated Contrast Allergy Severe Rash, face turned Active 11/02/14 Media - IV Dye completely red. Penicillin Allergy Unknown Active 06/29/13 Codeine Adverse Reaction Unknown FALL Active 07/16/13 Levothyroxine sodium Allergy Unknown Hives Active 07/21/15 Amoxicillin Allergy Unknown Active 06/29/13 oxacillin Allergy Severe Hives and rash Active 11/02/14 Immunizations Name Given Type Status Date Influenza Vaccine Received if Current 01/20/15 Historical Historical Vital Signs Acute Vital Signs Vital Response Date/Time Temperature (Fahrenheit) 98.0 08/19/2015 8:17pm Pulse 68 bpm 08/19/2015 8:17pm Respirations 18 08/19/2015 8:17pm Height 4 ft 9 in Weight 121 lb Body Mass Index 26.0 kg/m^2 Results Laboratory Results Test Name Result Units Flags Reference Collection Result Comments Date/Time Date/Time White Blood Count 4.34 10^3uL 4.0-11.0 07/21/2015 07/21/2015 1:45pm 1:52pm Red Blood Count 4.00 10^6uL 4.00-5.00 07/21/2015 07/21/2015 1:45pm 1:52pm Hemoglobin 12.2 g/dL 12.0-15.5 07/21/2015 07/21/2015 1:45pm 1:52pm Hematocrit 35.40 % 35.00-45.00 07/21/2015 07/21/2015 1:45pm 1:52pm Mean Corpuscular 89 FL 80-100 07/21/2015 07/21/2015 Volume 1:45pm 1:52pm Mean Corpuscular 30.5 PG 26.0-34.0 07/21/2015 07/21/2015 Hemoglobin 1:45pm 1:52pm Mean Corpuscular 34.5 g/dL 31.0-37.0 07/21/2015 07/21/2015 Hemoglobin Concent 1:45pm 1:52pm Red Cell 12.8 % 11.8-15.6 07/21/2015 07/21/2015 Distribution Width 1:45pm 1:52pm Platelet Count 157 10^3uL 150-450 07/21/2015 07/21/2015 1:45pm 1:52pm Mean Platelet 11.9 FL H 6.0-9.5 07/21/2015 07/21/2015 Volume 1:45pm 1:52pm Neutrophils (%) 69 % H 51-67 07/21/2015 07/21/2015 (Auto) 1:45pm 1:52pm Lymphocytes (%) 21 % 20-46 07/21/2015 07/21/2015 (Auto) 1:45pm 1:52pm Monocytes (%) 9 % 3-11 07/21/2015 07/21/2015 (Auto) 1:45pm 1:52pm Eosinophils (%) 1 % 0-4 07/21/2015 07/21/2015 (Auto) 1:45pm 1:52pm Basophils (%) 0 % 0-2 07/21/2015 07/21/2015 (Auto) 1:45pm 1:52pm Neutrophils # 3.0 X10^3 07/21/2015 07/21/2015 (Auto) 1:45pm 1:52pm Lymphocytes # 0.9 X10^3 07/21/2015 07/21/2015 (Auto) 1:45pm 1:52pm Monocytes # (Auto) 0.4 X10^3 07/21/2015 07/21/2015 1:45pm 1:52pm Eosinophils # 0.1 10^3uL 07/21/2015 07/21/2015 (Auto) 1:45pm 1:52pm Basophils # (Auto) 0.0 10^3uL 07/21/2015 07/21/2015 1:45pm 1:52pm Volume Urine 12 mL 07/21/2015 07/21/2015 Centrifuged 12:00pm 12:55pm Urine Collection CLEAN 07/21/2015 07/21/2015 Type CATCH 12:00pm 12:55pm Urine Color Yellow 07/21/2015 07/21/2015 12:00pm 12:47pm Urine Clarity Clear 07/21/2015 07/21/2015 12:00pm 12:47pm Urine pH 7.0 5.0 - 8.0 07/21/2015 07/21/2015 12:00pm 12:47pm Urine Specific 1.015 1.005-1.030 07/21/2015 07/21/2015 [place] 12:00pm 12:47pm Urine Protein Negative 07/21/2015 07/21/2015 12:00pm 12:47pm Urine Glucose (UA) Negative Negative 07/21/2015 07/21/2015 12:00pm 12:47pm Urine Blood Trace-inta H Negative 07/21/2015 07/21/2015 ct 12:00pm 12:47pm Urine Ketones Negative Negative 07/21/2015 07/21/2015 12:00pm 12:47pm Urine Nitrite Negative Negative 07/21/2015 07/21/2015 12:00pm 12:47pm Urine Bilirubin Negative Negative 07/21/2015 07/21/2015 12:00pm 12:47pm Urine Urobilinogen 0.2 mg/dL 0.2-1.0 07/21/2015 07/21/2015 12:00pm 12:47pm Urine Leukocyte 1+ H Negative 07/21/2015 07/21/2015 Esterase 12:00pm 12:47pm Urine RBC 0-2 /HPF 07/21/2015 07/21/2015 12:00pm 12:55pm Urine Microscopic 2-5 /HPF 07/21/2015 07/21/2015 WBC 12:00pm 12:55pm Urine Bacteria 1+ /HPF Negative 07/21/2015 07/21/2015 12:00pm 12:55pm Urine Squamous 10-20 /LPF 07/21/2015 07/21/2015 Epithelial Cells 12:00pm 12:55pm Sodium Level 135 mmol/L 135-150 07/21/2015 07/21/2015 1:45pm 2:13pm Potassium Level 4.3 mmol/L 3.5-5.1 07/21/2015 07/21/2015 1:45pm 2:13pm Chloride Level 96 mmol/L L 98-108 07/21/2015 07/21/2015 1:45pm 2:13pm Carbon Dioxide 28 mmol/L 22-29 07/21/2015 07/21/2015 Level 1:45pm 2:13pm Anion Gap 15.8 MEQ/L H 3-15 07/21/2015 07/21/2015 1:45pm 2:13pm Blood Urea Nitrogen 17 mg/dL 7-18 07/21/2015 07/21/2015 1:45pm 2:13pm Creatinine 0.75 mg/dL 0.6-1.2 07/21/2015 07/21/2015 1:45pm 2:13pm BUN/Creatinine 23 H 10-20 07/21/2015 07/21/2015 Ratio 1:45pm 2:13pm Estimat Glomerular 88.2 07/21/2015 07/21/2015 Filtration Rate 1:45pm 2:13pm Estimated GFR 72.9 07/21/2015 07/21/2015 (Non- 1:45pm 2:13pm [place] Glucose Level 127 mg/dL # H 70-110 07/21/2015 07/21/2015 1:45pm 2:13pm Calculated 265 mosm/L L 280-300 07/21/2015 07/21/2015 Osmolality 1:45pm 2:13pm Calcium Level 9.2 mg/dL 8.8-10.8 07/21/2015 07/21/2015 1:45pm 2:13pm Calcium/Ionized 3.9 mg/dL 3.8-4.6 07/21/2015 07/21/2015 Calcium Ratio 1:45pm 2:13pm Total Bilirubin 0.5 mg/dL 0.1-1.0 07/21/2015 07/21/2015 1:45pm 2:13pm Alkaline 49 U/L 38-126 07/21/2015 07/21/2015 Phosphatase 1:45pm 2:13pm Aspartate Amino 31 U/L 15-37 07/21/2015 07/21/2015 Transf (AST/SGOT) 1:45pm 2:13pm Alanine 28 U/L L 30-65 07/21/2015 07/21/2015 Aminotransferase 1:45pm 2:13pm (ALT/SGPT) Total Protein 7.6 g/dL 6.4-8.5 07/21/2015 07/21/2015 1:45pm 2:13pm Albumin 4.5 g/dL # 3.4-5.0 07/21/2015 07/21/2015 1:45pm 2:13pm Albumin/Globulin 1.451 1.1-1.8 07/21/2015 07/21/2015 Ratio 1:45pm 2:13pm Procedures Procedure Status Date Provider(s) ROUTINE VENIPUNCTURE Completed 07/21/15 COMPREHEN METABOLIC PANEL Completed 07/21/15 URINALYSIS AUTO W/O SCOPE Completed 07/21/15 MICROSCOPIC EXAM OF URINE Completed 07/21/15 COMPLETE CBC W/AUTO DIFF WBC Completed 07/21/15 EMERGENCY DEPT VISIT Completed 07/21/15 Encounters Encounter Location Arrival/Admit Date Discharge/Depart Date Attending Provider Departed [place] 08/19/15 7:13pm 08/19/15 7:43pm [facility] HELENA Fritz MD Departed [place] 07/21/15 11:25am 07/21/15 5:57pm [facility] Александр WHEELER Recent Diagnosis
--- OUTSIDE RECORDS SUMMARY | 2017-02-03 11:27 | External Medical Summary | Summary of Care ---
:1925 Author Name Debby Jade, Dane Address Unavailable Unavailable , Care Team Providers [...] TABLET AT BEDTIME. Quantity: 30 Refills: 6 [place] M.Richard Neil Start 12-Aug-2011 Active Aspirin 81 MG TABS TAKE 1 TABLET DAILY. Refills: 0 Start 12-Aug-2011 Active LevETIRAcetam 500 MG Oral Tablet TAKE 1 TABLET BY MOUTH TWICE DAILY MUST MAKE APPT TO GET MORE REFILLS Quantity: 60 Refills: 3 [place] M.Richard Neil Start Active Melatonin 1 MG Oral Tablet [...] UNTIL FINISHED. Quantity: 14 Refills: 0 Lori Jade Dale Mauricio Start 01-Jan-2016 Active Meloxicam 7.5 MG Oral Tablet TAKE 1 TABLET DAILY WITH FOOD. Quantity: 30 Refills: 1 Debby Jade, Richard Start 14-Feb-2016 Active Sertraline HCl - 25 MG Oral Tablet TAKE 1 TABLET DAILY. Quantity: 60 Refills: 2 Debby Jade Dane Start 02-Apr-2016 Active Allergies and Adverse [...] smoked Vital Signs Date Test Result Details 02-Apr-2016 15:02 BP Systolic 102 mm[Hg] Status: Comments: Location: ; Position: BP Diastolic 66 mm[Hg] Status: Comments: Location: ; Position: Temperature 97.7 f Status: Comments: Method: Heart Rate 77 /min Status: Comments: Location: ; Weight 117 lb Status: Physical Findings 98 Status: Comments: [...] M.D. On 16-May-2016 10:30 Interventions Provided Medication ChangesSertraline HCl - 25 MG Oral Tablet - Start Instructions Name [...]
--- OUTSIDE RECORDS SUMMARY | 2017-02-03 11:27 | External Medical Summary | Summary of Care ---
[...] HOURS NEEDED. Refills: 0 Start 11-Jun-2012 Active Metoprolol Succinate [...] x 10 days Quantity: 20 Refills: 0 Richard Guardado M.D. Start 01-Jan-2016 Active Calcium + D 500-1000-40 MG-UNT-MCG Oral Tablet Chewable Refills: 0 Start 01-Aug-2013 Active Multivitamins Oral Capsule TAKE 1 CAPSULE DAILY. Refills: 0 Start 01-Aug-2013 Active B-12 500 MCG Oral Tablet Refills: 0 Start 01-Aug-2013 Active Allergies and Adverse Reactions Name Dates [...] BP Systolic 108 mm[Hg] Status: Comments: Location: ; Position: BP Diastolic 58 mm[Hg] Status: Comments: Location: ; Position: Heart Rate 76 /min Status: Comments: Location: ; Weight 113.5 lb Status: Body Mass Index Calculated 22.17 kg/m2 Status: Body Surface Area Calculated 1.47 m2 Status: 25-Dec-2015 16:17 BP Systolic 110 mm[Hg] Status: Comments: Location: LUE; Position: Sitting BP Diastolic 64 mm[Hg] Status: Comments: Location: LUE; Position: Sitting Temperature 97.5 f Status: Comments: Method: Tympanic Heart Rate 74 /min Status: Comments: Location: [...] Diagnosis: Problem not documented 11:30 Appointment; [facility], Endoscopy On Encounter Diagnosis: Problem not documented 11:00 Appointment; Richard Guardado M.D. On Encounter Diagnosis: Problem not documented 14:45 Appointment; Dale Sandoval M.D. On Encounter Diagnosis: Problem not documented 10:30 Appointment; Omar Catsro M.D. On Encounter Diagnosis: Problem not documented [...]
--- OUTSIDE RECORDS SUMMARY | 2017-02-03 11:27 | External Medical Summary | Continuity of Care Document ---
:1925 Author Organization [facility] Care Team Providers Name Role Phone ANGELIQUE, BRANDY Villa MD Unavailable Unavailable Insurance Providers Payer Name Policy Number Subscriber Name Relationship Medicare A And B [id number] Kaci Gusman 18 Self / Same As Patient [facility] [id number] Kaci Gusman 18 Self / Same As Patient Advance Directives Directive Response Recorded Date/Time Advanced Directives Yes 05/14/16 11:04am Type Living Will 05/14/16 11:04am Type Living Will 05/14/16 11:04am Other Living Will status in motion; no DPOA yet 05/14/16 11:04am Chief Complaint and Reason for Visit Chief Complaint LEG PAIN SCIATICA HYPONATREMIA ELEVATED LIPASE Reason for Visit Neck pain Sciatica of right side Seizure disorder Problems Active Problems Medical Problem [...] Resolved Generalized anxiety disorder ~07/16/2013 Chronic Hyponatremia ~05/14/2016 Resolved Hypothyroidism ~07/16/2013 Chronic Hypoxia Unknown Resolved Injury of foot ~11/01/2014 Resolved Left against medical advice Unknown Resolved Malaise and fatigue Unknown Resolved Neck pain 05/29/2013 Resolved Pancreatitis ~11/14/2015 Acute Physical deconditioning 11/05/2014 Resolved Risk for falls Unknown Chronic Sciatic leg pain ~05/14/2016 Acute Sciatica of right side Unknown Acute Seizure disorder ~07/16/2013 Chronic Medications Current Home Medications Medication Dose Units Route Directions Days/Qty Instructions Start Date Lovastatin 40 Mg 40 Mg ORAL Bedtime 05/12/12 Levetiracetam 500 Mg 500 Mg ORAL Twice A Day 11/02/14 Docusate Sodium 100 100 Mg ORAL Twice A Day 11/02/14 Mg Multivitamin 1 Each 1 Each ORAL Daily 11/02/14 Metoprolol Succinate 25 Mg ORAL Bedtime 09/07/15 25 Mg Vit C/Vit E 1 Each ORAL Daily 09/07/15 Acetate/Lutein/Min 1 Each Denosumab 60 Mg/1 Ml 60 Mg Sub-Q Every 6 Months 09/07/15 Acetaminophen 650 Mg ORAL Every 6 Hours as 0 10/30/15 (Tylenol) 325 Mg needed for Pain Aspirin 81 Mg 81 Mg ORAL Daily 11/16/15 Polyethylene Glycol 17 Gm ORAL Daily as needed 1 11/21/15 3350 17 Gm for Constipation Sertraline Hcl 25 Mg ORAL Daily 05/14/16 (Zoloft) 25 Mg Clopidogrel 75 Mg ORAL Daily 05/14/16 Bisulfate (Plavix) 75 Mg Melatonin 1 Mg 1 Mg ORAL As Directed as 05/14/16 needed for Sleep Calcium Carb/Mag 1 Each ORAL Twice A Day 05/14/16 Oxide/Vit D3 1 Each Cyclobenzaprine Hcl 5 Mg ORAL Three Times A Day 30 05/16/16 10 Mg as needed for Pain Past Home Medications Medication Directions Ordered Status Aspirin 81 Mg Tablet, 81 Mg Oral Daily 12/30/11 Discontinued Lovastatin 40 Mg Tablet, 40 Mg Daily 12/30/11 Discontinued Oral Alendronate Sodium 5 Mg Tablet, Daily 12/30/11 Discontinued 5 Mg Oral Quetiapine Fumarate 25 Mg Bedtime as needed 12/30/11 Discontinued Tablet, 25 Mg Oral Acetaminophen 500 Mg Tab, [...] 05/06/12 Discontinued Tablet, Metoprolol Tartrate 25 Mg Twice A Day 05/12/12 Discontinued Tablet, 25 Mg Oral Aspirin 81 Mg Tablet.dr, 81 Mg Daily 05/29/13 Discontinued Oral Tramadol Hcl (Ultram) 50 Mg Q4-6 Hrs as needed 05/29/13 Discontinued Tablet, 50 Mg Oral Omeprazole 20 Mg Capsule.dr, 20 Twice A Day 06/24/13 Discontinued Mg Oral Cephalexin 500 Mg Capsule, 500 Three Times A Day 06/24/13 Discontinued Mg Oral Sucralfate (Carafate) 1 Gm Four Times Daily 06/24/13 Discontinued Tablet, 1 Gm Oral Tramadol Hcl (Ultram) 50 Mg Q6 Hrs as needed for Pain 06/29/13 Discontinued Tablet, 1-2 Tab.sa Oral [Calcium + Vit D3] , 1 Tab Oral Daily @ 0800 07/16/13 Discontinued Melatonin 300 Mcg Tablet, 600 Bedtime 07/16/13 Discontinued Mcg Oral [Osteoporosis Med] , 70 Mg Oral Weekly 07/16/13 Discontinued Melatonin/Pyridoxine Hcl (B6) 1 Bedtime 11/02/14 Discontinued Each Tablet, 10 Mg Oral Acetaminophen/Hydrocodone Bitart Every 6 Hours as needed for 11/06/14 Discontinued 1 Tab Tab, 0.5 Tab Oral Pain Alprazolam (Xanax) 0.25 Mg Twice A Day as needed for 09/07/15 Discontinued Tablet, 0.25 Mg Oral Anxiety Calcium Carb & Cit/Vitamin Daily 09/07/15 Discontinued D3 1 Each Tablet.er, 1 Each Oral [place] 3 Polyunsat Fatty Acids Daily 09/07/15 Discontinued 1,000 Mg Cap, 1000 Mg Oral Polyethylene Glycol 3350 17 Gm Daily 10/30/15 Discontinued Powd.pack, 17 Gm Oral Magnesium Hydroxide 400 Mg/5 Ml Four Times Daily as needed for 10/30/15 Discontinued Oral.susp, 30 Ml Oral Constipation Hyoscyamine Sulfate 0.125 Mg Before Meals And At Bedtime as 11/21/15 Discontinued Tab.subl, 0.125 Mg Oral needed for Abdominal Pain Sucralfate 1 Gm Tablet, 1 Gm As Directed 05/14/16 Discontinued Oral Social History Social History Problem Response Recorded Date/Time Onset Date Status Exposure to occupational hazards No 05/14/2016 11:04am Query Response Start Date Stop Date Smoking Status Never smoker Hospital Discharge Instructions Patient's Instructions Instructions Instructions You were admitted for falls and back pain. You are being discharged on cyclobenzaprine. You were provided lidoderm patches here, if you feel that you still need those on discharge, your PCP will need to prescribe these. You have a follow up appointment with Dr. Ramos next week. Orders DISCHARGE: Discharge to:: HOME Home, Self Care Plan of Care Discharge Date 05/16/16 11:30am Disposition 01 HOME OR SELF-CARE Instructions/Education Provided Cyclobenzaprine Prescriptions See Medication Section Referrals BRANDY MERINO MD ([facility]) - 05/20/16 Address: [address] [place] [id number] Reason(s) for Referral: Appt Dr Ramos May 20Thursday at 9:30am Care Plan and Goals See Discharge Instructions Section Functional Status Query Response Date Recorded Level of Conscious Alert May 16, 2016 8:03am Oriented x4 Movement Moves extremities May 16, 2016 8:03am Steady gait Hand circuits engineer equal Allergies, Adverse Reactions, Alerts Allergen Type Severity Reaction Status Last Updated Iodinated Contrast Allergy Severe Rash, face turned Active 05/14/16 Media - Oral and completely red. Codeine Adverse Reaction Unknown FALL Active 05/14/16 Levothyroxine sodium Allergy Unknown Hives Active 05/14/16 Amoxicillin Allergy Unknown Active 05/14/16 oxacillin Allergy Severe Hives and rash Active 05/14/16 Immunizations Name Given Type Status Date Influenza Vaccine Received if Current 01/20/15 Historical Historical Vital Signs Acute Vital Signs Vital Response Date/Time Temperature (Fahrenheit) 97.8 05/16/2016 8:20am Pulse 74 bpm 05/16/2016 8:20am Respirations 18 05/16/2016 8:20am Height 4 ft 9 in Weight 130 lb Body Mass Index 28.0 kg/m^2 Results Laboratory Results Test Name Result Units Flags Reference Collection Result Comments Date/Time Date/Time White Blood Count 3.86 10^3uL L 4.0-11.0 05/16/2016 05/16/2016 5:15am 6:52am Red Blood Count 3.31 10^6uL L 4.00-5.00 05/16/2016 05/16/2016 5:15am 6:52am Hemoglobin 10.2 g/dL L 12.0-15.5 05/16/2016 05/16/2016 5:15am 6:52am Hematocrit 29.40 % L 35.00-45.00 05/16/2016 05/16/2016 5:15am 6:52am Mean Corpuscular 89 FL 80-100 05/16/2016 05/16/2016 Volume 5:15am 6:52am Mean Corpuscular 30.8 PG 26.0-34.0 05/16/2016 05/16/2016 Hemoglobin 5:15am 6:52am Mean Corpuscular 34.7 g/dL 31.0-37.0 05/16/2016 05/16/2016 Hemoglobin Concent 5:15am 6:52am Red Cell 11.9 % 11.8-15.6 05/16/2016 05/16/2016 Distribution Width 5:15am 6:52am Platelet Count 183 10^3uL 150-450 05/16/2016 05/16/2016 5:15am 6:52am Mean Platelet 12.4 FL H 6.0-9.5 05/16/2016 05/16/2016 Volume 5:15am 6:52am Neutrophils (%) 61 % 51-67 05/16/2016 05/16/2016 (Auto) 5:15am 6:52am Lymphocytes (%) 23 % 20-46 05/16/2016 05/16/2016 (Auto) 5:15am 6:52am Monocytes (%) 11 % 3-11 05/16/2016 05/16/2016 (Auto) 5:15am 6:52am Eosinophils (%) 4 % 0-4 05/16/2016 05/16/2016 (Auto) 5:15am 6:52am Basophils (%) 1 % 0-2 05/16/2016 05/16/2016 (Auto) 5:15am 6:52am Neutrophils # 2.4 X10^3 05/16/2016 05/16/2016 (Auto) 5:15am 6:52am Lymphocytes # 0.9 X10^3 05/16/2016 05/16/2016 (Auto) 5:15am 6:52am Monocytes # (Auto) 0.4 X10^3 05/16/2016 05/16/2016 5:15am 6:52am Eosinophils # 0.2 10^3uL 05/16/2016 05/16/2016 (Auto) 5:15am 6:52am Basophils # (Auto) 0.0 10^3uL 05/16/2016 05/16/2016 5:15am 6:52am Volume Urine 12 mL 05/14/2016 05/14/2016 Centrifuged 5:35am 5:50am Urine Collection CLEAN 05/14/2016 05/14/2016 Type CATCH 5:35am 5:50am Urine Color Yellow 05/14/2016 05/14/2016 5:35am 5:44am Urine Clarity Clear 05/14/2016 05/14/2016 5:35am 5:44am Urine pH 7.0 5.0 - 8.0 05/14/2016 05/14/2016 5:35am 5:44am Urine Specific 1.020 1.005-1.030 05/14/2016 05/14/2016 [place] 5:35am 5:44am Urine Protein Negative Negative 05/14/2016 05/14/2016 5:35am 5:44am Urine Glucose (UA) Negative Negative 05/14/2016 05/14/2016 5:35am 5:44am Urine Blood Negative Negative 05/14/2016 05/14/2016 5:35am 5:44am Urine Ketones 1+ H Negative 05/14/2016 05/14/2016 5:35am 5:44am Urine Nitrite Negative Negative 05/14/2016 05/14/2016 5:35am 5:44am Urine Bilirubin Negative Negative 05/14/2016 05/14/2016 5:35am 5:44am Urine Urobilinogen 0.2 mg/dL 0.2-1.0 05/14/2016 05/14/2016 5:35am 5:44am Urine Leukocyte Trace H Negative 05/14/2016 05/14/2016 Esterase 5:35am 5:44am Urine Microscopic None Seen /HPF 05/14/2016 05/14/2016 RBC 5:35am 5:50am Urine WBC 0-2 /HPF 05/14/2016 05/14/2016 5:35am 5:50am Urine Bacteria Rare /HPF 05/14/2016 05/14/2016 5:35am 5:50am Urine Squamous None /LPF 05/14/2016 05/14/2016 Epithelial Cells 5:35am 5:50am Sodium Level 132 mmol/L L 135-150 05/16/2016 05/16/2016 5:15am 6:33am Potassium Level 4.7 mmol/L 3.5-5.1 05/16/2016 05/16/2016 5:15am 6:33am Chloride Level 100 mmol/L 98-108 05/16/2016 05/16/2016 5:15am 6:33am Carbon Dioxide 26 mmol/L 22-29 05/16/2016 05/16/2016 Level 5:15am 6:33am Anion Gap 10.3 MEQ/L 3-15 05/16/2016 05/16/2016 5:15am 6:33am Blood Urea Nitrogen 17 mg/dL # 7-18 05/16/2016 05/16/2016 5:15am 6:33am Creatinine 0.74 mg/dL 0.6-1.2 05/16/2016 05/16/2016 5:15am 6:33am BUN/Creatinine 18 10-20 05/14/2016 05/14/2016 Ratio 3:45am 5:07am Estimat Glomerular 89.6 05/16/2016 05/16/2016 Filtration Rate 5:15am 6:33am Estimated GFR 74.1 05/16/2016 05/16/2016 (Non- 5:15am 6:33am [place] Glucose Level 97 mg/dL 70-110 05/16/2016 05/16/2016 5:15am 6:33am Calculated 252 mosm/L L 280-300 05/14/2016 05/14/2016 Osmolality 3:45am 5:07am Calcium Level 8.0 mg/dL L 8.8-10.8 05/16/2016 05/16/2016 5:15am 6:33am Calcium/Ionized 3.8 mg/dL 3.8-4.6 05/14/2016 05/14/2016 Calcium Ratio 3:45am 5:07am Phosphorus Level 2.4 mg/dL 2.4-4.9 05/16/2016 05/16/2016 5:15am 6:33am Magnesium Level 2.0 mg/dL 1.6-2.3 05/16/2016 05/16/2016 5:15am 6:33am Total Bilirubin 0.8 mg/dL 0.1-1.0 05/14/2016 05/14/2016 3:45am 5:07am Alkaline 76 U/L 38-126 05/14/2016 05/14/2016 Phosphatase 3:45am 5:07am Aspartate Amino 36 U/L 15-37 05/14/2016 05/14/2016 Transf (AST/SGOT) 3:45am 5:07am Alanine 40 U/L 30-65 05/14/2016 05/14/2016 Aminotransferase 3:45am 5:07am (ALT/SGPT) Total Protein 7.5 g/dL 6.4-8.5 05/14/2016 05/14/2016 3:45am 5:07am Albumin 3.2 g/dL L 3.4-5.0 05/16/2016 05/16/2016 5:15am 6:33am Albumin/Globulin 1.272 1.1-1.8 05/14/2016 05/14/2016 Ratio 3:45am 5:07am Lipase 85 U/L 23-300 05/15/2016 05/15/2016 5:35am 6:47am Procedures No known history of procedures. Encounters Encounter Location Arrival/Admit Date Discharge/Depart Date Attending Provider Discharged Danisha 05/14/16 7:12am 05/16/16 11:30am [facility] (obs) [facility] JOE Lu MD Registered Danisha 05/14/16 3:53am [facility] Александр WHEELER Recent Diagnosis Neck pain Sciatica of right side Seizure disorder
--- OUTSIDE RECORDS SUMMARY | 2017-02-03 11:27 | External Medical Summary | Continuity of Care Document ---
:1925 Author Organization [facility] Care Team Providers Name Role Phone ANGELIQUEBRANDY MD Unavailable Unavailable Insurance Providers Payer Name Policy Number Subscriber Name Relationship Medicare A And B [id number] StephieKaci Villa 18 Self / Same As Patient [facility] [id number] Kaci Gusman 18 Self / Same As Patient Advance Directives Directive Response Recorded Date/Time Advanced Directives Unknown 10/28/15 5:45am Type Living Will 10/28/15 5:45am Type Living Will 10/28/15 5:45am Other Living Will status in motion; no DPOA yet 10/28/15 5:45am Chief Complaint and Reason for Visit Chief Complaint ABD PAIN/CONSTIPATION Reason for Visit Dehydration Seizure disorder Problems [...] fatigue Unknown Resolved Neck pain 05/29/2013 Resolved Physical deconditioning 11/05/2014 Resolved Risk for falls Unknown Chronic Seizure disorder ~07/16/2013 Chronic Medications Current Home Medications Medication Dose Units Route Directions Days/Qty Instructions Start Date Lovastatin 40 Mg 40 Mg ORAL Bedtime 05/12/12 Aspirin 81 Mg 81 Mg ORAL Daily 05/29/13 Levetiracetam 500 500 Mg ORAL Twice A Day 11/02/14 Mg Melatonin/Pyridox 10 Mg ORAL Bedtime 11/02/14 ine Hcl (B6) 1 Each Docusate Sodium 100 Mg ORAL Twice A Day 11/02/14 100 Mg Multivitamin 1 1 Each ORAL Daily 11/02/14 Each Metoprolol 25 Mg ORAL Bedtime 09/07/15 Succinate 25 Mg Calcium Carb 1 Each ORAL Daily 09/07/15 & Cit/Vitamin D3 1 Each [place] 3 Polyunsat 1,000 Mg ORAL Daily 09/07/15 Fatty Acids 1,000 Mg Vit C/Vit E 1 Each ORAL Daily 09/07/15 Acetate/Lutein/Mi n 1 Each Denosumab 60 Mg/1 60 Mg Sub-Q Every 6 Months 09/07/15 Ml Acetaminophen 650 Mg ORAL Every 6 Hours as 0 10/30/15 (Tylenol) 325 Mg needed for Pain Polyethylene 17 Gm ORAL Daily 0 10/30/15 Glycol 3350 17 Gm Magnesium 30 Ml ORAL Four Times Daily 0 If no BM in 48 10/30/15 Hydroxide 400 as needed for hours, start Mg/5 Ml Constipation taking every 6 hours until at least 2 bowel movements. Past Home Medications Medication Directions Ordered Status [...] A Day 05/12/12 Discontinued 25 Mg Oral Tramadol Hcl (Ultram) 50 Mg Q4-6 [...] 09/07/15 Discontinued Tablet, 0.25 Mg Oral Anxiety Social History Social History Problem Response Recorded Date/Time Onset Date Status Occupation or Former Occupation [employer] [id number] 10/28/2015 5:45am Exposure to occupational hazards No 10/28/2015 5:45am Query Response Start Date Stop Date Smoking Status Never smoker Hospital Discharge Instructions Patient's Instructions Instructions Instructions * During this hospitalization you were evaluated and treated for constipation. Continue to take your stool softener at home. It is recommended you also added polyethylene glycol daily and add milk of magnesium as needed if you have no bowel movement within 48 hours. * To aid in your recovery, home health and home physical therapy through [facility] has been added. Activity Instructions As tolerated. Doctor's Appointment Follow-up with your primary care doctor in 3-5 days. Keep you gastroenterology appointment as scheduled. Discharge Diet: Regular Orders DISCHARGE: Discharge to:: HOME Home, Self Care Plan of Care Discharge Date 10/30/15 4:46pm Disposition 01 HOME OR SELF-CARE Instructions/Education Provided Laxative, Stool Softeners (By mouth) Constipation (DC) Prescriptions See Medication Section Referrals [facility] (Home Health Services) - 10/30/15 Address: [address] [place] [address] [facility] (Physical Therapy Services) - 10/30/15 Address: [address] [place] [address] BRANDY MERINO MD (Family Practice) - 11/02/15 Address: [address] [place] [address] Care Plan and Goals See Discharge Instructions Section Functional Status Query Response Date Recorded Level of Conscious Alert October 30, 2015 8:32am Oriented x4 Movement Moves extremities October 30, 2015 8:32am Steady gait Allergies, Adverse Reactions, Alerts Allergen Type Severity Reaction Status Last Updated Iodinated Contrast Allergy Severe Rash, face turned Active 10/28/15 Media - IV Dye completely red. Codeine Adverse Reaction Unknown FALL Active 10/28/15 Levothyroxine sodium Allergy Unknown Hives Active 10/28/15 Amoxicillin Allergy Unknown Active 10/28/15 oxacillin Allergy Severe Hives and rash Active 10/28/15 Immunizations Name Given Type Status Date Influenza Vaccine Received if Current 01/20/15 Historical Historical Vital Signs Acute Vital Signs Vital Response Date/Time Temperature (Fahrenheit) 97.6 10/30/2015 4:00pm Pulse 68 bpm 10/30/2015 4:00pm Respirations 18 10/30/2015 4:00pm Height 4 ft 9 in Weight 117 lb Body Mass Index 25.0 kg/m^2 Results Pending Laboratory Results Test Name Collection Date/Time Procedures Procedure Status Date Provider(s) MRI LUMBAR SPINE W/O DYE Completed 10/02/15 Encounters Encounter Location Arrival/Admit Date Discharge/Depart Date Attending Provider Discharged Danisha 10/28/15 4:52am 10/30/15 4:46pm [facility], Inpatient (obs) [facility] GENEVA Fountain MD Registered Danisha 10/24/15 12:01pm [facility] BRANDY Villa MD Registered Danisha 10/02/15 1:45pm [facility] BRANDY Villa MD Recent Diagnosis Dehydration Seizure disorder
--- OUTSIDE RECORDS SUMMARY | 2017-02-03 11:27 | External Medical Summary | Summary of Care ---
:1925 Author Name Richard Guardado M.D. Address [address] [place], [place] [id number] Care Team Providers Name Role Phone Richard [...]
--- OUTSIDE RECORDS SUMMARY | 2017-02-03 11:28 | External Medical Summary | Continuity of Care Document ---
:1925 Author Organization [facility] Care Team Providers Name Role Phone ANGELIQUEBRANDY MD Unavailable Unavailable Insurance Providers Payer Name Policy Number Subscriber Name Relationship Medicare A And B [id number] Kaci Gusman 18 Self / Same As Patient [facility] [id number] Kaci Gusman 20 Self / Same As Patient Advance Directives Directive Response Recorded Date/Time Advanced Directives Unknown 07/21/15 11:45am Type Living Will 07/21/15 11:45am Type Living Will 07/21/15 11:45am Other Living Will status unknown ; pt. states no 07/21/15 11:45am DPOA Chief Complaint and Reason for Visit Chief Complaint Malaise Reason for Visit Malaise and fatigue Problems Active Problems Medical Problem Onset Date Status Abdominal pain ~04/2013 Resolved Abdominal pain ~06/27/2013 Resolved Altered mental status 05/06/2012 Resolved Anxiety 05/06/2012 Chronic Fall ~11/01/2014 Acute Fracture of fifth metatarsal bone of left foot 11/02/2014 Acute Fracture of metatarsal of left foot, closed ~11/02/2014 Acute Gastrointestinal hemorrhage 12/30/2011 Resolved Generalized anxiety disorder ~07/16/2013 Chronic Hypothyroidism ~07/16/2013 Chronic Injury of foot ~11/01/2014 Acute Malaise and fatigue Unknown Acute Neck [...] 1 Each 1 Each ORAL Daily 11/02/14 Acetaminophen/[place] 0.5 Tab ORAL Every 6 Hours as [...] discharge instructions. Plan of Care Discharge Date 07/21/15 5:57pm Disposition 01 HOME OR SELF-CARE Condition at Discharge Stable Prescriptions See Medication Section Referrals ANGELIQUE,BRANDY Villa MD - Additional Instructions/Education Take as much melantonin as needed for sleep Some of your test results may not [...] worrisome symptoms. * Emergency Department phone number: [phone], x [phone]* MEDICAL RECORD If you need copies of your X-rays, call [phone] x [phone]. If you need copies of [...] the billing parties for services. SERVICE BILLING [employer] Emergency Room Services [facility] Physician Services [facility] X-rays [facility] Patients will receive bills for services from the appropriate provider. If you have any questions about your [facility] bill, our staff will be happy to assist you. Please call [phone], and ask for the billing department. THANK YOU for choosing [facility] as your emergency care provider! Care Plan and Goals ~~Discharge Care Plan~~ Problem: Weakness, not feeling well, discomfort. Goal: Decreased weakness, discomfort, and patient feels better. Instructions: Drink plenty of fluids at least 6-8 glasses of water or other non carbonated drink. Get plenty of rest. Eat a balanced and healthy diet. Take medication(s) as directed. Follow up with primary care physician as directed. Functional Status No functional status results. Allergies, [...] Signs Vital Response Date/Time Temperature (Fahrenheit) 97.8 07/21/2015 11:45am Pulse 59 bpm 07/21/2015 5:54pm Respirations 16 07/21/2015 5:54pm Height 4 ft 9 in Weight 121 [...] 12:47pm Urine Specific 1.015 1.005-1.030 07/21/2015 07/21/2015 [place] 12:00pm 12:47pm Urine Protein Negative 07/21/2015 07/21/2015 [...] GFR 72.9 07/21/2015 07/21/2015 (Non- 1:45pm 2:13pm [place] Glucose Level 127 mg/dL # H 70-110 [...] 1.1-1.8 07/21/2015 07/21/2015 Ratio 1:45pm 2:13pm Procedures No known history of procedures. Encounters Encounter Location Arrival/Admit Date Discharge/Depart Date Attending Provider Departed Danisha 07/21/15 11:25am 07/21/15 5:57pm SALLY BRADFORD Emergency Room [facility] Recent Diagnosis
--- OUTSIDE RECORDS SUMMARY | 2017-02-03 11:28 | External Medical Summary | Summary of Care ---
:1925 Author Name Richard Guardado M.D. Address Unavailable Unavailable , Care Team Providers Name Role Phone Debby Jade, Richard Unavailable Unavailable Elizabeth Woodard M.D. Unavailable Unavailable Luly Sandoval M.D. Unavailable Unavailable [place], Richard Unavailable Unavailable Unavailable Unavailable Unavailable Functional [...] WITH FOOD. Quantity: 30 Refills: 1 Debby Villa.[place]., Richard Start 14-Feb-2016 Active Allergies and Adverse [...]
--- OUTSIDE RECORDS SUMMARY | 2017-02-03 11:28 | External Medical Summary | Summary of Care ---
:1925 Author Name Richard Guardado M.D. Address Unavailable Unavailable , Care Team Providers Name Role Phone Debby Jade, Richard Unavailable Unavailable Elizabeth Woodard M.D. Unavailable Unavailable [place] Unavailable Unavailable Unavailable Unavailable Unavailable Functional Status [...] Status: Active Insomnia (780.52, G47.00) Status: Active Medications Name Dates Details Lovastatin [...]
--- OUTSIDE RECORDS SUMMARY | 2017-02-03 11:28 | External Medical Summary | Continuity of Care Document ---
:1925 Author Organization [facility] Care Team Providers Name Role Phone BRANDY MERINO MD Unavailable Unavailable Insurance Providers Payer Name Policy Number Subscriber Name Relationship Medicare A And B [id number] Kaci Gusman 20 Self / Same As Patient [facility] [id number] Kaci Gusman 20 Self / Same As Patient Advance Directives Directive Response Recorded Date/Time Advanced Directives Unknown 09/07/15 10:49am Type Living Will 09/07/15 10:49am Type Living Will 09/07/15 10:49am Other Living Will status unknown ; pt. states no 09/07/15 10:49am DPOA Chief Complaint and Reason for Visit Chief Complaint HYPONATREMIA ADB PAIN Reason for Visit Neck pain Risk for falls Seizure disorder Problems Active Problems Medical Problem Onset Date Status Abdominal pain ~04/2013 Resolved Abdominal pain ~06/27/2013 Resolved Altered mental status 05/06/2012 Resolved Anxiety 05/06/2012 Chronic Fall ~11/01/2014 Acute Fracture of fifth metatarsal bone of left foot 11/02/2014 Acute Fracture of metatarsal of left foot, closed ~11/02/2014 Acute Gastrointestinal hemorrhage 12/30/2011 Resolved Generalized anxiety disorder ~07/16/2013 Chronic Hyponatremia Unknown Acute Hypothyroidism ~07/16/2013 Chronic Hypoxia Unknown Acute Injury of foot ~11/01/2014 Acute Left against [...] ORAL Twice A Day 11/02/14 Mg Melatonin/Pyridoxin 10 Mg ORAL Bedtime 11/02/14 e Hcl (B6) 1 Each Docusate Sodium 100 100 Mg ORAL Twice A Day 11/02/14 Mg Multivitamin 1 Each 1 Each ORAL Daily 11/02/14 Metoprolol 25 Mg ORAL Bedtime 09/07/15 Succinate 25 Mg Calcium Carb & 1 Each ORAL Daily 09/07/15 Cit/Vitamin D3 1 Each Bandon 3 Polyunsat 1,000 Mg ORAL Daily 09/07/15 Fatty Acids 1,000 Mg Vit C/Vit E 1 Each ORAL Daily 09/07/15 Acetate/Lutein/Min 1 Each Denosumab 60 Mg/1 60 Mg Sub-Q Every 6 Months 09/07/15 Ml Past Home Medications Medication Directions Ordered Status [...] Date Status Exposure to occupational hazards No 09/07/2015 10:49am Query Response Start Date Stop Date Smoking Status Never smoker Hospital Discharge Instructions Patient's Instructions Instructions Instructions If you experience fevers greater than 100.5, chills or increased abdominal pain please come to the hospital for follow up. Please follow up with your primary care doctor in the next 1-2 weeks. Activity Instructions You may resume your normal activity at discharge. Doctor's Appointment Please make a follow up appointment with Dr. Arroyo's office to follow up in the next 1-2 weeks. Discharge Diet: Regular Orders DISCHARGE: Discharge to:: HOME Home, Self Care DISCHARGE: Discharge to:: HOME Home, Self Care Discharge Plan of Care Discharge Plan of Care #1 Problem: Pain Goal: Regain strength Instructions for meeting goal: Follow up with Dr Merino Plan of Care Discharge Date 09/08/15 1:25pm Disposition 01 HOME OR SELF-CARE Instructions/Education Provided Acute Abdominal Pain (DC) Prescriptions See Medication Section Care Plan and Goals See Discharge Instructions Section Functional Status Query Response Date Recorded Level of Conscious Alert September 08, 2015 10:40am Oriented x4 Movement Moves extremities September 08, 2015 10:40am Allergies, Adverse Reactions, Alerts Allergen Type Severity Reaction Status Last Updated Iodinated Contrast Allergy Severe Rash, face turned Active 09/07/15 Media - IV Dye completely red. Codeine Adverse Reaction Unknown FALL Active 09/07/15 Levothyroxine sodium Allergy Unknown Hives Active 09/07/15 Amoxicillin Allergy Unknown Active 09/07/15 oxacillin Allergy Severe Hives and rash Active 09/07/15 Immunizations Name Given Type Status Date Influenza Vaccine Received if Current 01/20/15 Historical Historical Vital Signs Acute Vital Signs Vital Response Date/Time Temperature (Fahrenheit) 97.0 09/08/2015 11:33am Pulse 73 bpm 09/08/2015 12:00pm Respirations 18 09/08/2015 11:33am Height 4 ft 9 in Weight 124 lb Body Mass Index 27.0 kg/m^2 Results Pending Laboratory Results Test Name Collection Date/Time Procedures Procedure Status Date Provider(s) EMERGENCY DEPT VISIT Completed 08/19/15 US EXAM ABDOM COMPLETE Completed 08/28/15 US EXAM PELVIC COMPLETE Completed 08/28/15 Encounters Encounter Location Arrival/Admit Date Discharge/Depart Date Attending Provider Discharged [place] 09/07/15 7:36am 09/08/15 1:25pm [facility] Inpatient (obs) [facility] BRANDY Villa MD Registered [place] 09/07/15 2:49am [facility] ZAHIDA Villa DO Registered [place] 08/28/15 8:08am [facility] BRANDY Villa MD Departed [place] 08/19/15 7:13pm 08/19/15 7:43pm [facility] HELENA Fritz MD Recent Diagnosis Neck pain Risk for falls Seizure disorder
--- OUTSIDE RECORDS SUMMARY | 2017-02-03 11:28 | External Medical Summary | Summary of Care ---
:1925 Author Name Marti Jade Mirella Address Unavailable Unavailable , Care Team Providers Name Role Phone Debby Jade, Richard Unavailable Unavailable Elizabeth Woodard M.D. Unavailable Unavailable Luly Sandoval M.D. Unavailable Unavailable Debby, Richard Unavailable Unavailable Unavailable Unavailable Unavailable Functional [...]
--- OUTSIDE RECORDS SUMMARY | 2017-02-03 11:29 | External Medical Summary | Summary of Care ---
:1925 Author Name Richard Guardado M.D. Address Unavailable Unavailable , Care Team Providers Name Role Phone Richard Guardado M.D. Unavailable Unavailable Dane Guardado M.D. Unavailable Unavailable [place] Unavailable Unavailable Unavailable Unavailable Unavailable Functional Status [...] NIGHT AT BEDTIME Quantity: 30 Refills: 11 [place] M.D., Richard Start 22-Feb-2016 Active Prolia 60 MG/ML Subcutaneous Solution INJECT SUBCUTANEOUSLY 60 MG / 1 ML EVERY 6 MONTHS Quantity: 1 Refills: 0 [place] M.D., Richard Start Active Clopidogrel Bisulfate 75 MG Oral Tablet TAKE 1 TABLET DAILY. Quantity: 90 Refills: 2 [place] M.D., Richard Start 01-Jan-2016 Active Sertraline HCl - 25 MG Oral Tablet TAKE 1 TABLET DAILY. Quantity: 60 Refills: 2 [place] M.D., Dane Start 02-Apr-2016 Active Allergies and [...] Sandoval M.D. On 09:00 Interventions Provided Medication ChangesLevETIRAcetam 500 MG Oral [...]
--- OUTSIDE RECORDS SUMMARY | 2017-02-03 11:29 | External Medical Summary | Summary of Care ---
:1925 Author Name Richard Guardado M.D. Address Unavailable Unavailable , Care Team Providers Name Role Phone Debby Jade, Richard Unavailable Unavailable Elizabeth Woodard M.D. Unavailable Unavailable [place] cui Primary Care Provider Unavailable Unavailable Unavailable [...] 12:00 Instructions Instructions not documented Encounters Appointment; Dale Sandoval On Encounter Diagnosis: Problem [...] Encounter Diagnosis: Problem not documented 18:30 Appointment; Dlae Sandoval On Encounter Diagnosis: Problem not documented 08:30
[2017-02-03] MEDS ORDERED: LORazepam 0.5 MG TABLET PO PRN (11:33)
[2017-02-03] MEDS ORDERED: HALOPERIDOL 0.5 MG TABLET PO PRN (11:33)
[2017-02-03] MEDS ORDERED: HALOPERIDOL 5 MG/ML INJECTION IM PRN (11:33)
[2017-02-03 11:56] VITALS: BMI 20.2
[2017-02-03] MEDS ORDERED: ONDANSETRON ODT 4 MG TABLET PO SCH (16:00)
[2017-02-03] MEDS: LEVETIRACETAM 500 MG TABLET PO SCH (17:28)
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
[2017-02-03] MEDS: LOVASTATIN 40 MG TABLET PO SCH (21:08)
[2017-02-04] MEDS: LEVOTHYROXINE 50 MCG TABLET PO SCH (06:21)
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
[2017-02-04] MEDS: CLOPIDOGREL 75 MG TABLET PO SCH (08:49)
[2017-02-04] MEDS: SERTRALINE 25 MG TABLET PO SCH (08:49)
[2017-02-04] MEDS: LEVETIRACETAM 500 MG TABLET PO SCH ×2 (08:49→18:11)
[2017-02-04] MEDS ORDERED: SERTRALINE 25 MG TABLET PO SCH (09:00)
[2017-02-04] MEDS: ONDANSETRON ODT 4 MG TABLET PO PRN (09:49)
[2017-02-04] MEDS: ACETAMINOPHEN 325 MG TABLET PO PRN (09:50)
--- NOTE | 2017-02-04 17:58 | Neuropsych Progress Note ---
Camron Subjective Date: 02/04/17 - Sujective/Severity of Illness Medications: Acetaminophen (Tylenol) 325 - 650 mg PO Q5H PRN PRN Reason: Discomfort Last Admin: 02/04/17 09:50 Dose: 650 mg Clopidogrel Bisulfate (Plavix) 75 mg PO DAILY [facility] Last Admin: 02/04/17 08:49 Dose: 75 mg Haloperidol (Haldol) 0.5 mg PO Q6H PRN PRN Reason: Extreme agitation Haloperidol Lactate (Haldol) 0.5 mg IM Q6H PRN PRN Reason: Extreme agitation Levetiracetam (Keppra) 500 mg PO [facility] Last Admin: 02/04/17 08:49 Dose: 500 mg Levothyroxine Sodium (Synthroid) 50 mcg PO ACB [facility] Last Admin: 02/04/17 06:21 Dose: 50 mcg Lorazepam (Ativan Inj) 0.5 mg IM Q6H PRN PRN Reason: Extreme agitation Lorazepam (Ativan) 0.5 mg PO Q6H PRN PRN Reason: Extreme agitation Lovastatin (Mevacor) 40 mg PO HS [facility] Last Admin: 02/03/17 21:08 Dose: 40 mg Metoprolol Succinate (Toprol Xl) 25 mg PO 1700 [facility] Last Admin: 02/03/17 17:28 Dose: Not Given Ondansetron HCl (Zofran Po) 4 mg PO Q4HR PRN PRN Reason: Nausea &/or vomiting Last Admin: 02/04/17 09:49 Dose: 4 mg Sertraline HCl (Zoloft) 50 mg PO DAILY [facility] Last Admin: 02/04/17 08:49 Dose: 50 mg Subjective: Pt seen and chart examined. Nursing reports pt has done well on the unit and no behaviors noted. On face to face the pt is resting in bed. She continues to report feeling depressed but states she feels a little better. She requests melatonin for sleep. Denies S/I. Tolerating meds Start Time: 17:15 Stop Time: 17:30 Mental Status Exam Vitals: Last Vital Signs Temp 97.8 F 02/04/17 16:00 Pulse 66 02/04/17 16:00 Resp 16 02/04/17 16:00 BP 91/44 02/04/17 16:00 Pulse Ox 98 02/04/17 16:00 Height: 1.63 m Weight: 51.9 kg - Mental Status Exam Muscle Strength/Tone: Normal Dressing: Casual Grooming: Fair Attitude: Guarded Motor Activity: Retardation Eye Contact: Fair Speech: Slowed Volume: Soft Rhythm: Appropriate Rhythm Orientation: Oriented X4 Mood: Depressed Rate of Thoughts: Delayed Thought Organization: [place] Associations: Intact Abstract Reasoning: Poor abstract reasoning Computation: Intact Thought Content: Ruminations, Helplessness, Worthlessness Perception/Psychotic: Perception Normal Language: Naming Impaired Fund of Knowledge: Poor fund of knowledge Memory: Poor-immediate Suicidal Ideation: Intermittent Homicidal Ideation: None Insight: Poor Judgement: Poor Impulse Control: Poor - Laboratory Result Diagrams: 02/03/17 19:44 02/03/17 19:44 Laboratory Results - last 24 hr 02/03/17 02/03/17 02/03/17 19:44 19:44 19:44 WBC 3.9 L RBC 3.31 L Hgb 10.2 L Hct 30.4 L MCV 91.8 MCH 30.8 MCHC 33.6 RDW Std Deviation 45.1 Plt Count 215 MPV 11.3 Neutrophils % (Manual) 69.0 H Lymphocytes % (Manual) 22.0 L Monocytes % (Manual) 8.0 Eosinophils % (Manual) 1.0 Neutrophils # (Manual) 2.7 Lymphocytes # (Manual) 0.9 L Abs React Lymphs (Man) 0.3 H Monocytes # (Manual) 0.3 Eosinophils # (Manual) 0.0 RBC Morph Comment Normal Turbidity < 20 Sodium 128 L Potassium 4.8 Chloride 92 L Carbon Dioxide 23 Anion Gap 13 BUN 14.0 Creatinine 0.7 GFR Calculation 79 BUN/Creatinine Ratio 20 Glucose 113 H Calculated Osmolality 249 L Calcium 9.0 Total Bilirubin 0.20 Icterus Index < 2 AST 26 ALT 32 Alkaline Phosphatase 53 Total Protein 7.3 Albumin 4.1 Globulin 3.2 Albumin/Globulin Ratio 1.3 TSH 3.23 Specimen Hemolysis < 15 Ur Collection Type Urine Color Urine Clarity Urine pH Ur Specific [place] Urine Protein Urine Glucose (UA) Urine Ketones Urine Occult Blood Urine Nitrate Urine Bilirubin Urine Urobilinogen Ur Leukocyte Esterase Urinalysis Comment 02/04/17 01:37 WBC RBC Hgb Hct MCV MCH MCHC RDW Std Deviation Plt Count MPV Neutrophils % (Manual) Lymphocytes % (Manual) Monocytes % (Manual) Eosinophils % (Manual) Neutrophils # (Manual) Lymphocytes # (Manual) Abs React Lymphs (Man) Monocytes # (Manual) Eosinophils # (Manual) RBC Morph Comment Turbidity Sodium Potassium Chloride Carbon Dioxide Anion Gap BUN Creatinine GFR Calculation BUN/Creatinine Ratio Glucose Calculated Osmolality Calcium Total Bilirubin Icterus Index AST ALT Alkaline Phosphatase Total Protein Albumin Globulin Albumin/Globulin Ratio TSH Specimen Hemolysis Ur Collection Type Urine, clean catch Urine Color Yellow Urine Clarity Clear Urine pH 7.0 Ur Specific [place] 1.010 L Urine Protein Negative Urine Glucose (UA) Negative Urine Ketones Negative Urine Occult Blood Negative Urine Nitrate Negative Urine Bilirubin Negative Urine Urobilinogen 0.2 Ur Leukocyte Esterase Negative Urinalysis Comment Microscopic not ind. Assessment and Plan (1) MDD (major depressive disorder), recurrent episode, severe Current visit: Yes Status: Acute (2) Major neurocognitive disorder Current visit: Yes Status: Acute Hospital Course Summary Disclaimer: The visit summary below is not to be considered part of the above Progress Note. Hospital Course: 02/04/17- initial admission consult Impression Hyponatremia-present on admission, sodium 128 Major depressive disorder Neurocognitive Disorder Anemia HTN Seizure disorder Hx TIA/CVA Mesenteric artery insufficiency Plan Agree with admission to [facility] unit for further psychiatric evaluation and treatment Place fluid restriction of 1500ML a day given hyponatremia. POA- 128 Continue on Plavix given recent celiac stent placement. Continue on Keppra twice a day given history of seizure disorder. She does report chronic nausea, Zofran available as needed. Will monitor blood pressure carefully. Admission laboratory studies reviewed, Will follow routine chemistry panels to evaluate hyponatremia. Hospital services will continue to follow patient medically manage her existing comorbidities. At time of discharge medical care will return to her primary care provider in Dr. Debby Raman 02/04/17 17:57 Remains depressed. melatonin at HS
[2017-02-04] MEDS ORDERED: BISACODYL 10 MG SUPPOSITORY RECTALLY PRN (20:25)
[2017-02-04] MEDS: MELATONIN 5 MG TABLET PO SCH (20:31)
[2017-02-04] MEDS: LOVASTATIN 40 MG TABLET PO SCH (20:31)
[2017-02-05] MEDS: LEVETIRACETAM 500 MG TABLET PO SCH ×2 (09:37→17:35)
[2017-02-05] MEDS: POLYETHYL GLYCOL 3350 17gm PACKET PO SCH (09:37)
[2017-02-05] MEDS: CLOPIDOGREL 75 MG TABLET PO SCH (09:37)
[2017-02-05] MEDS: SERTRALINE 25 MG TABLET PO SCH (09:38)
[2017-02-05] MEDS: LEVOTHYROXINE 50 MCG TABLET PO SCH (09:38)
[2017-02-05] MEDS: ACETAMINOPHEN 325 MG TABLET PO PRN (10:09)
[2017-02-05] MEDS ORDERED: MIRTAZAPINE 15 MG TABLET PO PRN (19:21)
--- NOTE | 2017-02-05 19:23 | Neuropsych Progress Note ---
[facility] Subjective Date: 02/05/17 - Sujective/Severity of Illness Medications: Acetaminophen (Tylenol) 325 - 650 mg PO Q5H PRN PRN Reason: Discomfort Last Admin: 02/05/17 10:09 Dose: 650 mg Bisacodyl (Dulcolax) 10 mg RECTALLY DAILY PRN PRN Reason: Constipation Clopidogrel Bisulfate (Plavix) 75 mg PO DAILY [facility] Last Admin: 02/05/17 09:37 Dose: 75 mg Haloperidol (Haldol) 0.5 mg PO Q6H PRN PRN Reason: Extreme agitation Haloperidol Lactate (Haldol) 0.5 mg IM Q6H PRN PRN Reason: Extreme agitation Levetiracetam (Keppra) 500 mg PO [facility] Last Admin: 02/05/17 17:35 Dose: 500 mg Levothyroxine Sodium (Synthroid) 50 mcg PO ACB [facility] Last Admin: 02/05/17 09:38 Dose: Not Given Lorazepam (Ativan Inj) 0.5 mg IM Q6H PRN PRN Reason: Extreme agitation Lorazepam (Ativan) 0.5 mg PO Q6H PRN PRN Reason: Extreme agitation Lovastatin (Mevacor) 40 mg PO [facility] Last Admin: 02/04/17 20:31 Dose: 40 mg Magnesium Hydroxide (Mom) 30 ml PO DAILY PRN PRN Reason: Constipation Melatonin (Melatonin) 5 mg PO [facility] Last Admin: 02/04/17 20:31 Dose: 5 mg Metoprolol Succinate (Toprol Xl) 25 mg PO 1700 [facility] Last Admin: 02/05/17 17:36 Dose: Not Given Ondansetron HCl (Zofran Po) 4 mg PO Q4HR PRN PRN Reason: Nausea &/or vomiting Last Admin: 02/04/17 09:49 Dose: 4 mg Polyethylene Glycol (Miralax) 17 gm PO DAILY [facility] Last Admin: 02/05/17 09:37 Dose: 17 gm Subjective: Pt seen and chart examined. Nursing reports pt has done well on the unit and no behaviors noted. On face to face the pt states she remains depressed. Focused on trauma in her past. Remains anxious at times. Reports some nausea. Denies S/I or psychosis. Start Time: 17:30 Stop Time: 17:45 Mental Status Exam Vitals: Last Vital Signs Temp 97.8 F 02/05/17 16:00 Pulse 63 02/05/17 16:00 Resp 16 02/05/17 16:00 BP 107/51 02/05/17 16:00 Pulse Ox 97 02/05/17 16:00 Height: 1.63 m Weight: 51.9 kg - Mental Status Exam Muscle Strength/Tone: Normal Dressing: Casual Grooming: Fair Attitude: Guarded Motor Activity: Retardation Eye Contact: Fair Speech: Slowed Volume: Soft Rhythm: Appropriate Rhythm Orientation: Oriented X4 Mood: Depressed Rate of Thoughts: Delayed Thought Organization: [place] Associations: Intact Abstract Reasoning: Poor abstract reasoning Computation: Intact Thought Content: Ruminations, Helplessness, Worthlessness Perception/Psychotic: Perception Normal Language: Naming Impaired Fund of Knowledge: Poor fund of knowledge Memory: Poor-immediate Suicidal Ideation: Intermittent Homicidal Ideation: None Insight: Poor Judgement: Poor Impulse Control: Poor - Laboratory Result Diagrams: 02/03/17 19:44 02/05/17 07:20 Laboratory Results - last 24 hr 02/05/17 07:20 Turbidity < 20 Sodium 130 L Potassium 4.6 Chloride 93 L Carbon Dioxide 29 Anion Gap 8 BUN 14.0 Creatinine 0.7 GFR Calculation 79 BUN/Creatinine Ratio 20 Glucose 93 Hemoglobin A1c 5.3 L Calculated Osmolality 252 L Calcium 9.0 Icterus Index < 2 Triglycerides 135 Cholesterol 176 LDL Cholesterol, Calc 90.0 VLDL Cholesterol 27.0 HDL Cholesterol 59 Cholesterol/HDL Ratio 3.0 Specimen Hemolysis < 15 Assessment and Plan (1) MDD (major depressive disorder), recurrent episode, severe Current visit: Yes Status: Acute (2) Major neurocognitive disorder Current visit: Yes Status: Acute Hospital Course Summary Disclaimer: The visit summary below is not to be considered part of the above Progress Note. Hospital Course: 02/04/17- initial admission consult Impression Hyponatremia-present on admission, sodium 128 Major depressive disorder Neurocognitive Disorder Anemia HTN Seizure disorder Hx TIA/CVA Mesenteric artery insufficiency Plan Agree with admission to [facility] unit for further psychiatric evaluation and treatment Place fluid restriction of 1500ML a day given hyponatremia. POA- 128 Continue on Plavix given recent celiac stent placement. Continue on Keppra twice a day given history of seizure disorder. She does report chronic nausea, Zofran available as needed. Will monitor blood pressure carefully. Admission laboratory studies reviewed, Will follow routine chemistry panels to evaluate hyponatremia. Hospital services will continue to follow patient medically manage her existing comorbidities. At time of discharge medical care will return to her primary care provider in Dr. Debby Raman 02/04/17 17:57 Remains depressed. melatonin at HS 02/05/17 19:22 D/C Zoloft. Remeron 15mg PO QHS
[2017-02-05] MEDS: MELATONIN 5 MG TABLET PO SCH (20:30)
[2017-02-05] MEDS: LOVASTATIN 40 MG TABLET PO SCH (20:30)
[2017-02-06] MEDS: LEVOTHYROXINE 50 MCG TABLET PO SCH (05:34)
[2017-02-06] MEDS: LEVETIRACETAM 500 MG TABLET PO SCH ×2 (08:49→17:34)
[2017-02-06] MEDS: POLYETHYL GLYCOL 3350 17gm PACKET PO SCH (08:49)
[2017-02-06] MEDS: CLOPIDOGREL 75 MG TABLET PO SCH (08:49)
--- NOTE | 2017-02-06 14:36 | Progress Note ---
- Date 02/06/17 Subjective: Kaci was resting in bed. She is still nauseated with abdominal pain (has been x2 years) but hasn't vomited for a few days. She states that the "doctors have never been able to figure it out". She has never tried Reglan to her knowledge. She finally had a BM after several days without - at home she takes dulcolax on a regular basis. She has had sinus drainage d/t allergies and occasionally gets coughing fits. When this happens she is temporarily short of breath. She had a prior stroke leaving her left leg weak and she states that she drags it when she walks. Objective Vital signs: Temperature 97.4 F 02/06/17 08:00 Pulse Rate 71 02/06/17 08:00 Respiratory Rate 16 02/06/17 08:00 Blood Pressure 109/69 02/06/17 08:00 Pulse Oximetry 99 02/06/17 08:00 Height/Weight/BMI: Height 1.63 m Weight 51.9 kg Body Mass Index 20.2 - Constitutional Present: no acute distress, well nourished, well developed, thin - Routine HEENT Exam Eye: Absent: conjunctival icterus ENT: Present: oropharynx clear - Routine Respiratory Exam Present: CTA bilaterally - Routine Cardiovascular Exam Present: RRR, S1, S2, murmur (4/6) - Routine Abdominal Exam Present: soft, normoactive bowel sounds, non distended, non tender - Routine Extremities Exam Present: no edema - Routine Skin Exam Present: intact, dry, warm - Routine Neurological Exam Present: alert, oriented X3 - Routine Psychiatric Exam Present: normal thought process, cooperative Results - Labs CBC & Chem 7: 02/03/17 19:44 02/05/17 07:20 Assessment and Plan (1) MDD (major depressive disorder), recurrent episode, severe Current visit: Yes Status: Acute (2) Major neurocognitive disorder Current visit: Yes Status: Acute Assessment and Plan: Impression Hyponatremia-present on admission, sodium 128 Major depressive disorder Neurocognitive Disorder Anemia HTN Seizure disorder 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 Add Dulcolax daily per pt request (takes at home). Start Reglan 5 mg ACHS to see if this helps abdominal discomfort and chronic nausea - monitor closely for serotonin syndrome (on Zoloft [thought just dc'd] and Haldol PRN [has not received any doses yet]) and EPS. Could also consider trial of a PPI. Start Flonase for allergies & cough. Continue Plavix + statin for hx of stroke. Dr. Reed's notes reviewed - Zoloft dc'd and Remeron initiated. Resuscitation Status: Do Not Resuscitate Hospital Course Summary Disclaimer: The visit summary below is not to be considered part of the above Progress Note. Hospital Course: 02/04/17- initial admission consult Impression Hyponatremia-present on admission, sodium 128 Major depressive disorder Neurocognitive Disorder Anemia HTN Seizure disorder Hx TIA/CVA Mesenteric artery insufficiency Plan Agree with admission to [facility] unit for further psychiatric evaluation and treatment Place fluid restriction of 1500ML a day given hyponatremia. POA- 128 Continue on Plavix given recent celiac stent placement. Continue on Keppra twice a day given history of seizure disorder. She does report chronic nausea, Zofran available as needed. Will monitor blood pressure carefully. Admission laboratory studies reviewed, Will follow routine chemistry panels to evaluate hyponatremia. Hospital services will continue to follow patient medically manage her existing comorbidities. At time of discharge medical care will return to her primary care provider in Dr. Debby Raman 02/04/17 17:57 Remains depressed. melatonin at HS 02/05/17 19:22 D/C Zoloft. Remeron 15mg PO QHS 02/06/17 Na improved to 130. Add Dulcolax daily per pt request (takes at home). Start Reglan 5 mg ACHS to see if this helps abdominal discomfort and chronic nausea - monitor closely for serotonin syndrome (on Zoloft [thought just dc'd] and Haldol PRN [has not received any doses yet]) and EPS. Could also consider trial of a PPI. Start Flonase for allergies & cough. Continue Plavix + statin for hx of stroke. Dr. Reed's notes reviewed - Zoloft dc'd and Remeron initiated.
[2017-02-06] MEDS ORDERED: GUAIFENESIN LA 600 MG TABLET PO PRN (15:45)
[2017-02-06] MEDS ORDERED: MENTHOL COUGH DROPS (RICOLA) MM PRN (15:46)
[2017-02-06] MEDS: FLUTICASONE NASAL SPRAY 50mcg EA NOSTRIL SCH (16:52)
[2017-02-06] MEDS: METOCLOPRAMIDE 5mg TABLET PO SCH ×2 (17:34→20:18)
--- NOTE | 2017-02-06 18:46 | Neuropsych Progress Note ---
[facility] Subjective Date: 02/06/17 - Sujective/Severity of Illness Medications: Acetaminophen (Tylenol) 325 - 650 mg PO Q5H PRN PRN Reason: Discomfort Last Admin: 02/05/17 10:09 Dose: 650 mg Bisacodyl (Dulcolax) 10 mg RECTALLY DAILY PRN PRN Reason: Constipation Bisacodyl (Dulcolax) 5 mg PO DAILY [facility] Clopidogrel Bisulfate (Plavix) 75 mg PO DAILY [facility] Last Admin: 02/06/17 08:49 Dose: 75 mg Fluticasone Propionate (Flonase) 2 spray EA NOSTRIL DAILY [facility] Last Admin: 02/06/17 16:52 Dose: 2 spray Guaifenesin (Mucinex La) 600 mg PO BID PRN PRN Reason: Cough /Congestion Last Admin: 02/06/17 16:52 Dose: 600 mg Haloperidol (Haldol) 0.5 mg PO Q6H PRN PRN Reason: Extreme agitation Haloperidol Lactate (Haldol) 0.5 mg IM Q6H PRN PRN Reason: Extreme agitation Levetiracetam (Keppra) 500 mg PO [facility] Last Admin: 02/06/17 17:34 Dose: 500 mg Levothyroxine Sodium (Synthroid) 50 mcg PO ACB [facility] Last Admin: 02/06/17 05:34 Dose: Not Given Lorazepam (Ativan Inj) 0.5 mg IM Q6H PRN PRN Reason: Extreme agitation Lorazepam (Ativan) 0.5 mg PO Q6H PRN PRN Reason: Extreme agitation Lovastatin (Mevacor) 40 mg PO HS [facility] Last Admin: 02/05/17 20:30 Dose: 40 mg Magnesium Hydroxide (Mom) 30 ml PO DAILY PRN PRN Reason: Constipation Last Admin: 02/06/17 08:49 Dose: 30 ml Melatonin (Melatonin) 5 mg PO HS [facility] Last Admin: 02/05/17 20:30 Dose: 5 mg Menthol (Ricola Sf) 1 lozenge MM PRN PRN PRN Reason: Cough Metoclopramide HCl (Reglan) 5 mg PO ACHS [facility] Last Admin: 02/06/17 17:34 Dose: 5 mg Metoprolol Succinate (Toprol Xl) 25 mg PO 1700 [facility] Last Admin: 02/06/17 17:34 Dose: 25 mg Mirtazapine (Remeron) 15 mg PO HS [facility] Ondansetron HCl (Zofran Po) 4 mg PO Q4HR PRN PRN Reason: Nausea &/or vomiting Last Admin: 02/04/17 09:49 Dose: 4 mg Polyethylene Glycol (Miralax) 17 gm PO DAILY [facility] Last Admin: 02/06/17 08:49 Dose: 17 gm Subjective: Pt seen and chart examined. Nursing reports pt is doing well on the unit. Sleeping well and has a good appetite. on face to face the pt states she feels a little better. She still ruminates on her past trauma but is redirectable. She reports her mood and anxiety are improved. Tolerating meds. Denies S/I Start Time: 16:15 Stop Time: 16:30 Mental Status Exam Vitals: Last Vital Signs Temp 98.3 F 02/06/17 16:00 Pulse 66 02/06/17 16:00 Resp 16 02/06/17 16:00 BP 120/58 02/06/17 16:00 Pulse Ox 98 02/06/17 16:00 Height: 1.63 m Weight: 51.9 kg - Mental Status Exam Muscle Strength/Tone: Normal Dressing: Casual Grooming: Fair Attitude: Guarded Motor Activity: Retardation Eye Contact: Fair Speech: Slowed Volume: Soft Rhythm: Appropriate Rhythm Orientation: Oriented X4 Mood: Depressed Rate of Thoughts: Delayed Thought Organization: [place] Associations: Intact Abstract Reasoning: Poor abstract reasoning Computation: Intact Thought Content: Ruminations, Helplessness, Worthlessness Perception/Psychotic: Perception Normal Language: [place] Impaired Fund of Knowledge: Poor fund of knowledge Memory: Poor-immediate Suicidal Ideation: Intermittent Homicidal Ideation: None Insight: Poor Judgement: Poor Impulse Control: Poor - Laboratory Result Diagrams: 02/03/17 19:44 02/05/17 07:20 Assessment and Plan (1) MDD (major depressive disorder), recurrent episode, severe Current visit: Yes Status: Acute (2) Major neurocognitive disorder Current visit: Yes Status: Acute Hospital Course Summary Disclaimer: The visit summary below is not to be considered part of the above Progress Note. Hospital Course: 02/04/17- initial admission consult Impression Hyponatremia-present on admission, sodium 128 Major depressive disorder Neurocognitive Disorder Anemia HTN Seizure disorder Hx TIA/CVA Mesenteric artery insufficiency Plan Agree with admission to [facility] unit for further psychiatric evaluation and treatment Place fluid restriction of 1500ML a day given hyponatremia. POA- 128 Continue on Plavix given recent celiac stent placement. Continue on Keppra twice a day given history of seizure disorder. She does report chronic nausea, Zofran available as needed. Will monitor blood pressure carefully. Admission laboratory studies reviewed, Will follow routine chemistry panels to evaluate hyponatremia. Hospital services will continue to follow patient medically manage her existing comorbidities. At time of discharge medical care will return to her primary care provider in Dr. Debby Raman 02/04/17 17:57 Remains depressed. melatonin at HS 02/05/17 19:22 D/C Zoloft. Remeron 15mg PO QHS 02/06/17 Na improved to 130. Add Dulcolax daily per pt request (takes at home). Start Reglan 5 mg ACHS to see if this helps abdominal discomfort and chronic nausea - monitor closely for serotonin syndrome (on Zoloft [thought just dc'd] and Haldol PRN [has not received any doses yet]) and EPS. Could also consider trial of a PPI. Start Flonase for allergies & cough. Continue Plavix + statin for hx of stroke. Dr. Reed's notes reviewed - Zoloft dc'd and Remeron initiated. 02/06/17 18:46 Slightly improved. Continue current care
[2017-02-06] MEDS: LOVASTATIN 40 MG TABLET PO SCH (20:17)
[2017-02-06] MEDS: MIRTAZAPINE 15 MG TABLET PO SCH (20:18)
[2017-02-06] MEDS: MELATONIN 5 MG TABLET PO SCH (20:18)
[2017-02-07] MEDS: LEVOTHYROXINE 50 MCG TABLET PO SCH (08:51)
[2017-02-07] MEDS: LEVETIRACETAM 500 MG TABLET PO SCH ×2 (08:52→16:42)
[2017-02-07] MEDS: CLOPIDOGREL 75 MG TABLET PO SCH (08:52)
[2017-02-07] MEDS: FLUTICASONE NASAL SPRAY 50mcg EA NOSTRIL SCH (08:52)
[2017-02-07] MEDS: METOCLOPRAMIDE 5mg TABLET PO SCH ×4 (08:52→20:08)
[2017-02-07] MEDS: Bisacodyl EC TAB 5 MG TABLET PO SCH (08:52)
[2017-02-07] MEDS: POLYETHYL GLYCOL 3350 17gm PACKET PO SCH (08:53)
--- NOTE | 2017-02-07 12:25 | Neuropsych Progress Note ---
[facility] Subjective Date: 02/07/17 - Sujective/Severity of Illness Medications: Acetaminophen (Tylenol) 325 - 650 mg PO Q5H PRN PRN Reason: Discomfort Last Admin: 02/05/17 10:09 Dose: 650 mg Bisacodyl (Dulcolax) 10 mg RECTALLY DAILY PRN PRN Reason: Constipation Bisacodyl (Dulcolax) 5 mg PO DAILY [facility] Last Admin: 02/07/17 08:52 Dose: 5 mg Clopidogrel Bisulfate (Plavix) 75 mg PO DAILY [facility] Last Admin: 02/07/17 08:52 Dose: 75 mg Fluticasone Propionate (Flonase) 2 spray EA NOSTRIL DAILY [facility] Last Admin: 02/07/17 08:52 Dose: 2 spray Guaifenesin (Mucinex La) 600 mg PO BID PRN PRN Reason: Cough /Congestion Last Admin: 02/06/17 16:52 Dose: 600 mg Haloperidol (Haldol) 0.5 mg PO Q6H PRN PRN Reason: Extreme agitation Haloperidol Lactate (Haldol) 0.5 mg IM Q6H PRN PRN Reason: Extreme agitation Levetiracetam (Keppra) 500 mg PO [facility] Last Admin: 02/07/17 08:52 Dose: 500 mg Levothyroxine Sodium (Synthroid) 50 mcg PO ACB [facility] Last Admin: 02/07/17 08:51 Dose: Not Given Lorazepam (Ativan Inj) 0.5 mg IM Q6H PRN PRN Reason: Extreme agitation Lorazepam (Ativan) 0.5 mg PO Q6H PRN PRN Reason: Extreme agitation Lovastatin (Mevacor) 40 mg PO HS [facility] Last Admin: 02/06/17 20:17 Dose: 40 mg Magnesium Hydroxide (Mom) 30 ml PO DAILY PRN PRN Reason: Constipation Last Admin: 02/06/17 08:49 Dose: 30 ml Melatonin (Melatonin) 5 mg PO HS [facility] Last Admin: 02/06/17 20:18 Dose: 5 mg Menthol (Ricola Sf) 1 lozenge MM PRN PRN PRN Reason: Cough Metoclopramide HCl (Reglan) 5 mg PO ACHS [facility] Last Admin: 02/07/17 11:50 Dose: 5 mg Metoprolol Succinate (Toprol Xl) 25 mg PO 1700 [facility] Last Admin: 02/06/17 17:34 Dose: 25 mg Mirtazapine (Remeron) 15 mg PO HS [facility] Last Admin: 02/06/17 20:18 Dose: 15 mg Ondansetron HCl (Zofran Po) 4 mg PO Q4HR PRN PRN Reason: Nausea &/or vomiting Last Admin: 02/04/17 09:49 Dose: 4 mg Polyethylene Glycol (Miralax) 17 gm PO DAILY [facility] Last Admin: 02/07/17 08:53 Dose: 17 gm Subjective: Pt seen and chart examined. Nursing reports pt is doing well on the unit. Sleeping well and has a good appetite. On face to face the pt states she feels a little better. She reports her mood and anxiety are improved. She denies any S/I. She continues to ruminate on things in her past but is redirectable. Tolerating meds Start Time: 11:30 Stop Time: 11:45 Mental Status Exam Vitals: Last Vital Signs Temp 97.5 F 02/07/17 08:00 Pulse 68 02/07/17 08:00 Resp 20 02/07/17 08:00 BP 119/56 02/07/17 08:00 Pulse Ox 98 02/07/17 08:00 Height: 1.63 m Weight: 51.9 kg - Mental Status Exam Muscle Strength/Tone: Normal Dressing: Casual Grooming: Fair Attitude: Guarded Motor Activity: Retardation Eye Contact: Fair Speech: Slowed Volume: Soft Rhythm: Appropriate Rhythm Orientation: Oriented X4 Mood: Depressed Rate of Thoughts: Delayed Thought Organization: [place] Associations: Intact Abstract Reasoning: Poor abstract reasoning Computation: Intact Thought Content: Ruminations, Helplessness, Worthlessness Perception/Psychotic: Perception Normal Language: Naming Impaired Fund of Knowledge: Poor fund of knowledge Memory: Poor-immediate Suicidal Ideation: Intermittent Homicidal Ideation: None Insight: Poor Judgement: Poor Impulse Control: Poor - Laboratory Result Diagrams: 02/03/17 19:44 02/05/17 07:20 Laboratory Results - last 24 hr 02/05/17 07:20 TSH 3.14 Assessment and Plan (1) MDD (major depressive disorder), recurrent episode, severe Current visit: Yes Status: Acute (2) Major neurocognitive disorder Current visit: Yes Status: Acute Hospital Course Summary Disclaimer: The visit summary below is not to be considered part of the above Progress Note. Hospital Course: 02/04/17- initial admission consult Impression Hyponatremia-present on admission, sodium 128 Major depressive disorder Neurocognitive Disorder Anemia HTN Seizure disorder Hx TIA/CVA Mesenteric artery insufficiency Plan Agree with admission to [facility] unit for further psychiatric evaluation and treatment Place fluid restriction of 1500ML a day given hyponatremia. POA- 128 Continue on Plavix given recent celiac stent placement. Continue on Keppra twice a day given history of seizure disorder. She does report chronic nausea, Zofran available as needed. Will monitor blood pressure carefully. Admission laboratory studies reviewed, Will follow routine chemistry panels to evaluate hyponatremia. Hospital services will continue to follow patient medically manage her existing comorbidities. At time of discharge medical care will return to her primary care provider in Dr. Debby Raman 02/04/17 17:57 Remains depressed. melatonin at HS 02/05/17 19:22 D/C Zoloft. Remeron 15mg PO QHS 02/06/17 Na improved to 130. Add Dulcolax daily per pt request (takes at home). Start Reglan 5 mg ACHS to see if this helps abdominal discomfort and chronic nausea - monitor closely for serotonin syndrome (on Zoloft [thought just dc'd] and Haldol PRN [has not received any doses yet]) and EPS. Could also consider trial of a PPI. Start Flonase for allergies & cough. Continue Plavix + statin for hx of stroke. Dr. Reed's notes reviewed - Zoloft dc'd and Remeron initiated. 02/06/17 18:46 Slightly improved. Continue current care 02/07/17 12:25 Improving. Continue current care
[2017-02-07] MEDS: MELATONIN 5 MG TABLET PO SCH (20:08)
[2017-02-07] MEDS: MIRTAZAPINE 15 MG TABLET PO SCH (20:10)
[2017-02-07] MEDS: LOVASTATIN 40 MG TABLET PO SCH (20:10)
[2017-02-08] MEDS: ONDANSETRON ODT 4 MG TABLET PO PRN (01:09)
[2017-02-08] MEDS: METOCLOPRAMIDE 5mg TABLET PO SCH ×4 (05:36→21:44)
[2017-02-08] MEDS: LEVOTHYROXINE 50 MCG TABLET PO SCH (05:37)
[2017-02-08] MEDS: Bisacodyl EC TAB 5 MG TABLET PO SCH ×2 (10:10→10:20)
[2017-02-08] MEDS: LEVETIRACETAM 500 MG TABLET PO SCH ×2 (10:10→17:15)
[2017-02-08] MEDS: CLOPIDOGREL 75 MG TABLET PO SCH (10:10)
[2017-02-08] MEDS: FLUTICASONE NASAL SPRAY 50mcg EA NOSTRIL SCH (10:11)
[2017-02-08] MEDS: POLYETHYL GLYCOL 3350 17gm PACKET PO SCH ×2 (10:11→10:20)
--- NOTE | 2017-02-08 12:21 | Neuropsych Progress Note ---
[facility] Subjective Date: 02/08/17 - Sujective/Severity of Illness Medications: Acetaminophen (Tylenol) 325 - 650 mg PO Q5H PRN PRN Reason: Discomfort Last Admin: 02/05/17 10:09 Dose: 650 mg Bisacodyl (Dulcolax) 10 mg RECTALLY DAILY PRN PRN Reason: Constipation Bisacodyl (Dulcolax) 5 mg PO DAILY [facility] Last Admin: 02/08/17 10:20 Dose: Not Given Clopidogrel Bisulfate (Plavix) 75 mg PO DAILY [facility] Last Admin: 02/08/17 10:10 Dose: 75 mg Fluticasone Propionate (Flonase) 2 spray EA NOSTRIL DAILY [facility] Last Admin: 02/08/17 10:11 Dose: 2 spray Guaifenesin (Mucinex La) 600 mg PO BID PRN PRN Reason: Cough /Congestion Last Admin: 02/06/17 16:52 Dose: 600 mg Haloperidol (Haldol) 0.5 mg PO Q6H PRN PRN Reason: Extreme agitation Haloperidol Lactate (Haldol) 0.5 mg IM Q6H PRN PRN Reason: Extreme agitation Levetiracetam (Keppra) 500 mg PO [facility] Last Admin: 02/08/17 10:10 Dose: 500 mg Levothyroxine Sodium (Synthroid) 50 mcg PO ACB [facility] Last Admin: 02/08/17 05:37 Dose: Not Given Lorazepam (Ativan Inj) 0.5 mg IM Q6H PRN PRN Reason: Extreme agitation Lorazepam (Ativan) 0.5 mg PO Q6H PRN PRN Reason: Extreme agitation Lovastatin (Mevacor) 40 mg PO HS [facility] Last Admin: 02/07/17 20:10 Dose: 40 mg Magnesium Hydroxide (Mom) 30 ml PO DAILY PRN PRN Reason: Constipation Last Admin: 02/06/17 08:49 Dose: 30 ml Melatonin (Melatonin) 5 mg PO HS [facility] Last Admin: 02/07/17 20:08 Dose: 5 mg Menthol (Ricola Sf) 1 lozenge MM PRN PRN PRN Reason: Cough Metoclopramide HCl (Reglan) 5 mg PO ACHS [facility] Last Admin: 02/08/17 11:45 Dose: 5 mg Metoprolol Succinate (Toprol Xl) 25 mg PO 1700 [facility] Last Admin: 02/07/17 16:42 Dose: 25 mg Mirtazapine (Remeron) 15 mg PO HS [facility] Last Admin: 02/07/17 20:10 Dose: 15 mg Ondansetron HCl (Zofran Po) 4 mg PO Q4HR PRN PRN Reason: Nausea &/or vomiting Last Admin: 02/08/17 01:09 Dose: 4 mg Polyethylene Glycol (Miralax) 17 gm PO DAILY [facility] Last Admin: 02/08/17 10:20 Dose: Not Given Subjective: Pt seen and chart examined. Nursing reports pt is doing well on the unit. Sleeping well and has a good appetite. On face to face the pt states she is doing better. She reports her mood and anxiety are improved. Denies S/I. Less focused on the past. Tolerating meds and denies pain Start Time: 11:45 Stop Time: 12:00 Mental Status Exam Vitals: Last Vital Signs Temp 97.1 F 02/08/17 08:00 Pulse 66 02/08/17 08:00 Resp 16 02/08/17 08:00 BP 125/69 02/08/17 08:00 Pulse Ox 96 02/08/17 08:00 Height: 1.63 m Weight: 51.9 kg - Mental Status Exam Muscle Strength/Tone: Normal Dressing: Casual Grooming: Fair Attitude: Guarded Motor Activity: Retardation Eye Contact: Fair Speech: Slowed Volume: Soft Rhythm: Appropriate Rhythm Orientation: Oriented X4 Mood: Depressed Rate of Thoughts: Delayed Thought Organization: [place] Associations: Intact Abstract Reasoning: Poor abstract reasoning Computation: Intact Thought Content: Ruminations, Helplessness, Worthlessness Perception/Psychotic: Perception Normal Language: Naming Impaired Fund of Knowledge: Poor fund of knowledge Memory: Poor-immediate Suicidal Ideation: Intermittent Homicidal Ideation: None Insight: Poor Judgement: Poor Impulse Control: Poor - Laboratory Result Diagrams: 02/03/17 19:44 02/05/17 07:20 Assessment and Plan (1) MDD (major depressive disorder), recurrent episode, severe Current visit: Yes Status: Acute (2) Major neurocognitive disorder Current visit: Yes Status: Acute Hospital Course Summary Disclaimer: The visit summary below is not to be considered part of the above Progress Note. Hospital Course: 02/04/17- initial admission consult Impression Hyponatremia-present on admission, sodium 128 Major depressive disorder Neurocognitive Disorder Anemia HTN Seizure disorder Hx TIA/CVA Mesenteric artery insufficiency Plan Agree with admission to [facility] unit for further psychiatric evaluation and treatment Place fluid restriction of 1500ML a day given hyponatremia. POA- 128 Continue on Plavix given recent celiac stent placement. Continue on Keppra twice a day given history of seizure disorder. She does report chronic nausea, Zofran available as needed. Will monitor blood pressure carefully. Admission laboratory studies reviewed, Will follow routine chemistry panels to evaluate hyponatremia. Hospital services will continue to follow patient medically manage her existing comorbidities. At time of discharge medical care will return to her primary care provider in Dr. Debby Raman 02/04/17 17:57 Remains depressed. melatonin at HS 02/05/17 19:22 D/C Zoloft. Remeron 15mg PO QHS 02/06/17 Na improved to 130. Add Dulcolax daily per pt request (takes at home). Start Reglan 5 mg ACHS to see if this helps abdominal discomfort and chronic nausea - monitor closely for serotonin syndrome (on Zoloft [thought just dc'd] and Haldol PRN [has not received any doses yet]) and EPS. Could also consider trial of a PPI. Start Flonase for allergies & cough. Continue Plavix + statin for hx of stroke. Dr. Reed's notes reviewed - Zoloft dc'd and Remeron initiated. 02/06/17 18:46 Slightly improved. Continue current care 02/07/17 12:25 Improving. Continue current care 02/08/17 12:21 Continues to improve. Continue current care
[2017-02-08] MEDS: MIRTAZAPINE 15 MG TABLET PO SCH (21:44)
[2017-02-08] MEDS: MELATONIN 5 MG TABLET PO SCH (21:44)
[2017-02-08] MEDS: LOVASTATIN 40 MG TABLET PO SCH (21:44)
[2017-02-09] MEDS: LEVOTHYROXINE 50 MCG TABLET PO SCH (07:09)
[2017-02-09] MEDS: METOCLOPRAMIDE 5mg TABLET PO SCH ×4 (07:09→20:30)
[2017-02-09] MEDS: Bisacodyl EC TAB 5 MG TABLET PO SCH (08:52)
[2017-02-09] MEDS: CLOPIDOGREL 75 MG TABLET PO SCH (08:52)
[2017-02-09] MEDS: LEVETIRACETAM 500 MG TABLET PO SCH ×2 (08:52→19:27)
[2017-02-09] MEDS: POLYETHYL GLYCOL 3350 17gm PACKET PO SCH (08:53)
[2017-02-09] MEDS: FLUTICASONE NASAL SPRAY 50mcg EA NOSTRIL SCH (08:53)
[2017-02-09] MEDS: MIRTAZAPINE 15 MG TABLET PO SCH (20:29)
[2017-02-09] MEDS: MELATONIN 5 MG TABLET PO SCH (20:30)
[2017-02-09] MEDS: LOVASTATIN 40 MG TABLET PO SCH (20:30)
--- NOTE | 2017-02-09 21:26 | Neuropsych Progress Note ---
[facility] Subjective Date: 02/09/17 - Sujective/Severity of Illness Medications: Acetaminophen (Tylenol) 325 - 650 mg PO Q5H PRN PRN Reason: Discomfort Last Admin: 02/05/17 10:09 Dose: 650 mg Bisacodyl (Dulcolax) 10 mg RECTALLY DAILY PRN PRN Reason: Constipation Bisacodyl (Dulcolax) 5 mg PO DAILY [facility] Last Admin: 02/09/17 08:52 Dose: 5 mg Clopidogrel Bisulfate (Plavix) 75 mg PO DAILY [facility] Last Admin: 02/09/17 08:52 Dose: 75 mg Fluticasone Propionate (Flonase) 2 spray EA NOSTRIL DAILY [facility] Last Admin: 02/09/17 08:53 Dose: 2 spray Guaifenesin (Mucinex La) 600 mg PO BID PRN PRN Reason: Cough /Congestion Last Admin: 02/06/17 16:52 Dose: 600 mg Haloperidol (Haldol) 0.5 mg PO Q6H PRN PRN Reason: Extreme agitation Haloperidol Lactate (Haldol) 0.5 mg IM Q6H PRN PRN Reason: Extreme agitation Levetiracetam (Keppra) 500 mg PO [facility] Last Admin: 02/09/17 19:27 Dose: 500 mg Levothyroxine Sodium (Synthroid) 50 mcg PO ACB [facility] Last Admin: 02/09/17 07:09 Dose: Not Given Lorazepam (Ativan Inj) 0.5 mg IM Q6H PRN PRN Reason: Extreme agitation Lorazepam (Ativan) 0.5 mg PO Q6H PRN PRN Reason: Extreme agitation Lovastatin (Mevacor) 40 mg PO HS [facility] Last Admin: 02/09/17 20:30 Dose: 40 mg Magnesium Hydroxide (Mom) 30 ml PO DAILY PRN PRN Reason: Constipation Last Admin: 02/06/17 08:49 Dose: 30 ml Melatonin (Melatonin) 5 mg PO HS [facility] Last Admin: 02/09/17 20:30 Dose: 5 mg Menthol (Ricola Sf) 1 lozenge MM PRN PRN PRN Reason: Cough Metoclopramide HCl (Reglan) 5 mg PO ACHS [facility] Last Admin: 02/09/17 20:30 Dose: 5 mg Metoprolol Succinate (Toprol Xl) 25 mg PO 1700 [facility] Last Admin: 02/09/17 19:27 Dose: 25 mg Mirtazapine (Remeron) 15 mg PO HS [facility] Last Admin: 02/09/17 20:29 Dose: 15 mg Ondansetron HCl (Zofran Po) 4 mg PO Q4HR PRN PRN Reason: Nausea &/or vomiting Last Admin: 02/08/17 01:09 Dose: 4 mg Polyethylene Glycol (Miralax) 17 gm PO DAILY [facility] Last Admin: 02/09/17 08:53 Dose: Not Given Subjective: Pt seen and chart examined. Nursing reports pt is doing well on the unit. Sleeping well and has a good appetite. On face to face the pt states she is doing well. Mood continues to improve. Anxiety improved. Denies S/I. Tolerating meds Start Time: 17:45 Stop Time: 18:00 Mental Status Exam Vitals: Last Vital Signs Temp 98.2 F 02/09/17 16:00 Pulse 86 02/09/17 16:00 Resp 16 02/09/17 16:00 BP 152/70 H 02/09/17 16:00 Pulse Ox 97 02/09/17 16:00 Height: 1.63 m Weight: 51.9 kg - Mental Status Exam Muscle Strength/Tone: Normal Dressing: Casual Grooming: Fair Attitude: Guarded Motor Activity: Retardation Eye Contact: Fair Speech: Slowed Volume: Soft Rhythm: Appropriate Rhythm Orientation: Oriented X4 Mood: Depressed Rate of Thoughts: Delayed Thought Organization: [place] Associations: Intact Abstract Reasoning: Poor abstract reasoning Computation: Intact Thought Content: Ruminations, Helplessness, Worthlessness Perception/Psychotic: Perception Normal Language: Naming Impaired Fund of Knowledge: Poor fund of knowledge Memory: Poor-immediate Suicidal Ideation: Intermittent Homicidal Ideation: None Insight: Poor Judgement: Poor Impulse Control: Poor - Laboratory Result Diagrams: 02/09/17 07:11 02/09/17 07:11 Laboratory Results - last 24 hr 02/05/17 02/09/17 02/09/17 07:20 07:11 07:11 WBC 3.9 L RBC 3.29 L Hgb 10.1 L Hct 30.5 L MCV 92.7 MCH 30.7 MCHC 33.1 RDW Std Deviation 45.6 Plt Count 211 MPV 10.5 Immature Gran % (Auto) 0.3 Neut % (Auto) 63.7 Lymph % (Auto) 24.4 [place] % (Auto) 8.7 Eos % (Auto) 2.6 Baso % (Auto) 0.3 Neut # (Auto) 2.5 Lymph # (Auto) 1.0 [place] # (Auto) 0.3 Eos # (Auto) 0.1 Baso # (Auto) 0.0 Abs Immat Gran (auto) 0.01 Turbidity < 20 Sodium 135 Potassium 4.4 Chloride 98 Carbon Dioxide 29 Anion Gap 8 BUN 20.0 H Creatinine 0.8 GFR Calculation 68 BUN/Creatinine Ratio 25 Glucose 97 Calculated Osmolality 263 Calcium 9.0 Icterus Index < 2 Free T4 1.25 Specimen Hemolysis < 15 Assessment and Plan (1) MDD (major depressive disorder), recurrent episode, severe Current visit: Yes Status: Acute (2) Major neurocognitive disorder Current visit: Yes Status: Acute Hospital Course Summary Disclaimer: The visit summary below is not to be considered part of the above Progress Note. Hospital Course: 02/04/17- initial admission consult Impression Hyponatremia-present on admission, sodium 128 Major depressive disorder Neurocognitive Disorder Anemia HTN Seizure disorder Hx TIA/CVA Mesenteric artery insufficiency Plan Agree with admission to [facility] unit for further psychiatric evaluation and treatment Place fluid restriction of 1500ML a day given hyponatremia. POA- 128 Continue on Plavix given recent celiac stent placement. Continue on Keppra twice a day given history of seizure disorder. She does report chronic nausea, Zofran available as needed. Will monitor blood pressure carefully. Admission laboratory studies reviewed, Will follow routine chemistry panels to evaluate hyponatremia. Hospital services will continue to follow patient medically manage her existing comorbidities. At time of discharge medical care will return to her primary care provider in Dr. Debby Raman 02/04/17 17:57 Remains depressed. melatonin at HS 02/05/17 19:22 D/C Zoloft. Remeron 15mg PO QHS 02/06/17 Na improved to 130. Add Dulcolax daily per pt request (takes at home). Start Reglan 5 mg ACHS to see if this helps abdominal discomfort and chronic nausea - monitor closely for serotonin syndrome (on Zoloft [thought just dc'd] and Haldol PRN [has not received any doses yet]) and EPS. Could also consider trial of a PPI. Start Flonase for allergies & cough. Continue Plavix + statin for hx of stroke. Dr. Reed's notes reviewed - Zoloft dc'd and Remeron initiated. 02/06/17 18:46 Slightly improved. Continue current care 02/07/17 12:25 Improving. Continue current care 02/08/17 12:21 Continues to improve. Continue current care 02/09/17 21:25 Continues to improve. Continue current care
[2017-02-10] MEDS: Bisacodyl EC TAB 5 MG TABLET PO SCH (08:50)
[2017-02-10] MEDS: METOCLOPRAMIDE 5mg TABLET PO SCH ×5 (08:50→20:36)
[2017-02-10] MEDS: LEVOTHYROXINE 50 MCG TABLET PO SCH (08:50)
[2017-02-10] MEDS: LEVETIRACETAM 500 MG TABLET PO SCH ×2 (08:50→17:28)
[2017-02-10] MEDS: FLUTICASONE NASAL SPRAY 50mcg EA NOSTRIL SCH (08:51)
[2017-02-10] MEDS: CLOPIDOGREL 75 MG TABLET PO SCH (08:51)
[2017-02-10] MEDS: POLYETHYL GLYCOL 3350 17gm PACKET PO SCH (08:51)
--- NOTE | 2017-02-10 09:57 | Progress Note ---
- Date 02/10/17 Subjective: Kaci was seen in her room, getting ready for the day. She is without c/o. She reports that she rested well last night. Nursing staff deny any concerns. She's been eating well; bowels are moving. Objective Vital signs: Temperature 97.4 F 02/09/17 23:01 Pulse Rate 80 02/09/17 23:01 Respiratory Rate 20 02/09/17 23:01 Blood Pressure 119/58 02/09/17 23:01 Pulse Oximetry 96 02/09/17 23:01 Height/Weight/BMI: Height 1.63 m Weight 51.9 kg Body Mass Index 20.2 - Constitutional Present: no acute distress, well nourished, well developed - Routine HEENT Exam ENT: Present: mucous membranes moist - Routine Respiratory Exam Present: CTA bilaterally - Routine Cardiovascular Exam Present: RRR - Routine Abdominal Exam Present: soft, normoactive bowel sounds - Routine Extremities Exam Present: no edema - Routine Skin Exam Present: intact, dry, warm - Routine Neurological Exam Present: alert, oriented X3 - Routine Psychiatric Exam Present: normal affect, cooperative Results - Labs CBC & Chem 7: 02/09/17 07:11 02/09/17 07:11 Assessment and Plan (1) MDD (major depressive disorder), recurrent episode, severe Current visit: Yes Status: Acute (2) Major neurocognitive disorder Current visit: Yes Status: Acute Assessment and Plan: Impression Hyponatremia-present on admission, sodium 128 Major depressive disorder Neurocognitive Disorder Anemia HTN Seizure disorder 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 Na up to 135 as of 02/09. Dr. Reed's notes reviewed. Hospital Course Summary Disclaimer: The visit summary below is not to be considered part of the above Progress Note. Hospital Course: 02/04/17- initial admission consult Impression Hyponatremia-present on admission, sodium 128 Major depressive disorder Neurocognitive Disorder Anemia HTN Seizure disorder Hx TIA/CVA Mesenteric artery insufficiency Plan Agree with admission to [facility] unit for further psychiatric evaluation and treatment Place fluid restriction of 1500ML a day given hyponatremia. POA- 128 Continue on Plavix given recent celiac stent placement. Continue on Keppra twice a day given history of seizure disorder. She does report chronic nausea, Zofran available as needed. Will monitor blood pressure carefully. Admission laboratory studies reviewed, Will follow routine chemistry panels to evaluate hyponatremia. Hospital services will continue to follow patient medically manage her existing comorbidities. At time of discharge medical care will return to her primary care provider in Dr. Debby Raman 02/04/17 17:57 Remains depressed. melatonin at HS 02/05/17 19:22 D/C Zoloft. Remeron 15mg PO QHS 02/06/17 Na improved to 130. Add Dulcolax daily per pt request (takes at home). Start Reglan 5 mg ACHS to see if this helps abdominal discomfort and chronic nausea - monitor closely for serotonin syndrome (on Zoloft [thought just dc'd] and Haldol PRN [has not received any doses yet]) and EPS. Could also consider trial of a PPI. Start Flonase for allergies & cough. Continue Plavix + statin for hx of stroke. Dr. Reed's notes reviewed - Zoloft dc'd and Remeron initiated. 02/06/17 18:46 Slightly improved. Continue current care 02/07/17 12:25 Improving. Continue current care 02/08/17 12:21 Continues to improve. Continue current care 02/09/17 21:25 Continues to improve. Continue current care
--- NOTE | 2017-02-10 17:13 | Neuropsych Progress Note ---
[facility] Subjective Date: 02/10/17 - Sujective/Severity of Illness Medications: Acetaminophen (Tylenol) 325 - 650 mg PO Q5H PRN PRN Reason: Discomfort Last Admin: 02/05/17 10:09 Dose: 650 mg Bisacodyl (Dulcolax) 10 mg RECTALLY DAILY PRN PRN Reason: Constipation Bisacodyl (Dulcolax) 5 mg PO DAILY [facility] Last Admin: 02/10/17 08:50 Dose: 5 mg Clopidogrel Bisulfate (Plavix) 75 mg PO DAILY [facility] Last Admin: 02/10/17 08:51 Dose: 75 mg Fluticasone Propionate (Flonase) 2 spray EA NOSTRIL DAILY [facility] Last Admin: 02/10/17 08:51 Dose: 2 spray Guaifenesin (Mucinex La) 600 mg PO BID PRN PRN Reason: Cough /Congestion Last Admin: 02/06/17 16:52 Dose: 600 mg Haloperidol (Haldol) 0.5 mg PO Q6H PRN PRN Reason: Extreme agitation Haloperidol Lactate (Haldol) 0.5 mg IM Q6H PRN PRN Reason: Extreme agitation Levetiracetam (Keppra) 500 mg PO [facility] Last Admin: 02/10/17 08:50 Dose: 500 mg Levothyroxine Sodium (Synthroid) 50 mcg PO ACB [facility] Last Admin: 02/10/17 08:50 Dose: Not Given Lorazepam (Ativan Inj) 0.5 mg IM Q6H PRN PRN Reason: Extreme agitation Lorazepam (Ativan) 0.5 mg PO Q6H PRN PRN Reason: Extreme agitation Lovastatin (Mevacor) 40 mg PO HS [facility] Last Admin: 02/09/17 20:30 Dose: 40 mg Magnesium Hydroxide (Mom) 30 ml PO DAILY PRN PRN Reason: Constipation Last Admin: 02/06/17 08:49 Dose: 30 ml Melatonin (Melatonin) 5 mg PO HS [facility] Last Admin: 02/09/17 20:30 Dose: 5 mg Menthol (Ricola Sf) 1 lozenge MM PRN PRN PRN Reason: Cough Metoclopramide HCl (Reglan) 5 mg PO ACHS [facility] Last Admin: 02/10/17 12:39 Dose: 5 mg Metoprolol Succinate (Toprol Xl) 25 mg PO 1700 [facility] Last Admin: 02/09/17 19:27 Dose: 25 mg Mirtazapine (Remeron) 15 mg PO HS [facility] Last Admin: 02/09/17 20:29 Dose: 15 mg Ondansetron HCl (Zofran Po) 4 mg PO Q4HR PRN PRN Reason: Nausea &/or vomiting Last Admin: 02/08/17 01:09 Dose: 4 mg Polyethylene Glycol (Miralax) 17 gm PO DAILY [facility] Last Admin: 02/10/17 08:51 Dose: 17 gm Subjective: Pt seen and chart examined. Nursing reports pt is doing well on the unit. Sleeping well and has a good appetite. On face to face the pt is resting quietly in bed. She reports her mood and anxiety are improved and she denies any S/I. Tolerating meds Start Time: 17:30 Stop Time: 17:45 Mental Status Exam Vitals: Last Vital Signs Temp 97.5 F 02/10/17 08:00 Pulse 67 02/10/17 08:00 Resp 18 02/10/17 08:00 BP 110/54 02/10/17 08:00 Pulse Ox 98 02/10/17 08:00 Height: 1.63 m Weight: 52.9 kg - Mental Status Exam Muscle Strength/Tone: Normal Dressing: Casual Grooming: Fair Attitude: Guarded Motor Activity: Retardation Eye Contact: Fair Speech: Slowed Volume: Soft Rhythm: Appropriate Rhythm Orientation: Oriented X4 Mood: Depressed Rate of Thoughts: Delayed Thought Organization: [place] Associations: Intact Abstract Reasoning: Poor abstract reasoning Computation: Intact Thought Content: Ruminations, Helplessness, Worthlessness Perception/Psychotic: Perception Normal Language: Naming Impaired Fund of Knowledge: Poor fund of knowledge Memory: Poor-immediate Suicidal Ideation: Intermittent Homicidal Ideation: None Insight: Poor Judgement: Poor Impulse Control: Poor - Laboratory Result Diagrams: 02/09/17 07:11 02/09/17 07:11 Assessment and Plan (1) MDD (major depressive disorder), recurrent episode, severe Current visit: Yes Status: Acute (2) Major neurocognitive disorder Current visit: Yes Status: Acute Hospital Course Summary Disclaimer: The visit summary below is not to be considered part of the above Progress Note. Hospital Course: 02/04/17- initial admission consult Impression Hyponatremia-present on admission, sodium 128 Major depressive disorder Neurocognitive Disorder Anemia HTN Seizure disorder Hx TIA/CVA Mesenteric artery insufficiency Plan Agree with admission to [facility] unit for further psychiatric evaluation and treatment Place fluid restriction of 1500ML a day given hyponatremia. POA- 128 Continue on Plavix given recent celiac stent placement. Continue on Keppra twice a day given history of seizure disorder. She does report chronic nausea, Zofran available as needed. Will monitor blood pressure carefully. Admission laboratory studies reviewed, Will follow routine chemistry panels to evaluate hyponatremia. Hospital services will continue to follow patient medically manage her existing comorbidities. At time of discharge medical care will return to her primary care provider in Dr. Debby Raman 02/04/17 17:57 Remains depressed. melatonin at HS 02/05/17 19:22 D/C Zoloft. Remeron 15mg PO QHS 02/06/17 Na improved to 130. Add Dulcolax daily per pt request (takes at home). Start Reglan 5 mg ACHS to see if this helps abdominal discomfort and chronic nausea - monitor closely for serotonin syndrome (on Zoloft [thought just dc'd] and Haldol PRN [has not received any doses yet]) and EPS. Could also consider trial of a PPI. Start Flonase for allergies & cough. Continue Plavix + statin for hx of stroke. Dr. Reed's notes reviewed - Zoloft dc'd and Remeron initiated. 02/06/17 18:46 Slightly improved. Continue current care 02/07/17 12:25 Improving. Continue current care 02/08/17 12:21 Continues to improve. Continue current care 02/09/17 21:25 Continues to improve. Continue current care 02/10/17 17:12 Near back to baseline. SW to start working toward D/C
[2017-02-10] MEDS: MELATONIN 5 MG TABLET PO SCH ×2 (19:57→20:35)
[2017-02-10] MEDS: MIRTAZAPINE 15 MG TABLET PO SCH ×2 (19:57→20:38)
[2017-02-10] MEDS: LOVASTATIN 40 MG TABLET PO SCH ×2 (19:57→20:35)
[2017-02-11] MEDS: METOCLOPRAMIDE 5mg TABLET PO SCH ×4 (05:34→20:07)
[2017-02-11] MEDS: CLOPIDOGREL 75 MG TABLET PO SCH (08:47)
[2017-02-11] MEDS: Bisacodyl EC TAB 5 MG TABLET PO SCH (08:47)
[2017-02-11] MEDS: LEVETIRACETAM 500 MG TABLET PO SCH ×2 (08:47→17:11)
[2017-02-11] MEDS: FLUTICASONE NASAL SPRAY 50mcg EA NOSTRIL SCH (08:48)
[2017-02-11] MEDS: POLYETHYL GLYCOL 3350 17gm PACKET PO SCH (08:48)
--- NOTE | 2017-02-11 20:05 | Neuropsych Progress Note ---
[facility] Subjective Date: 02/11/17 - Sujective/Severity of Illness Medications: Acetaminophen (Tylenol) 325 - 650 mg PO Q5H PRN PRN Reason: Discomfort Last Admin: 02/05/17 10:09 Dose: 650 mg Bisacodyl (Dulcolax) 10 mg RECTALLY DAILY PRN PRN Reason: Constipation Bisacodyl (Dulcolax) 5 mg PO DAILY [facility] Last Admin: 02/11/17 08:47 Dose: 5 mg Clopidogrel Bisulfate (Plavix) 75 mg PO DAILY [facility] Last Admin: 02/11/17 08:47 Dose: 75 mg Fluticasone Propionate (Flonase) 2 spray EA NOSTRIL DAILY [facility] Last Admin: 02/11/17 08:48 Dose: 2 spray Guaifenesin (Mucinex La) 600 mg PO BID PRN PRN Reason: Cough /Congestion Last Admin: 02/06/17 16:52 Dose: 600 mg Haloperidol (Haldol) 0.5 mg PO Q6H PRN PRN Reason: Extreme agitation Haloperidol Lactate (Haldol) 0.5 mg IM Q6H PRN PRN Reason: Extreme agitation Levetiracetam (Keppra) 500 mg PO [facility] Last Admin: 02/11/17 17:11 Dose: 500 mg Lorazepam (Ativan Inj) 0.5 mg IM Q6H PRN PRN Reason: Extreme agitation Lorazepam (Ativan) 0.5 mg PO Q6H PRN PRN Reason: Extreme agitation Lovastatin (Mevacor) 40 mg PO HS [facility] Last Admin: 02/10/17 20:35 Dose: Not Given Magnesium Hydroxide (Mom) 30 ml PO DAILY PRN PRN Reason: Constipation Last Admin: 02/06/17 08:49 Dose: 30 ml Melatonin (Melatonin) 5 mg PO HS [facility] Last Admin: 02/10/17 20:35 Dose: Not Given Menthol (Ricola Sf) 1 lozenge MM PRN PRN PRN Reason: Cough Metoclopramide HCl (Reglan) 5 mg PO ACHS [facility] Last Admin: 02/11/17 17:11 Dose: 5 mg Metoprolol Succinate (Toprol Xl) 25 mg PO 1700 [facility] Last Admin: 02/11/17 17:22 Dose: Not Given Mirtazapine (Remeron) 15 mg PO HS [facility] Last Admin: 02/10/17 20:38 Dose: Not Given Ondansetron HCl (Zofran Po) 4 mg PO Q4HR PRN PRN Reason: Nausea &/or vomiting Last Admin: 02/08/17 01:09 Dose: 4 mg Polyethylene Glycol (Miralax) 17 gm PO DAILY [facility] Last Admin: 02/11/17 08:48 Dose: Not Given Subjective: Patient seen and chart reviewed. Case discussed with treatment team. On interview, patient is pleasant and cooperative. She reports that her mood is improved and she denies feeling anxious. Patient denies any SI, HI or AVH. Patient denies any adverse side effects related to psychotropic medications. Nursing staff report patient has been pleasant, less isolative, engaging in groups and adherent with medications. Patient slept 11.25 hours overnight. VSS. Patient is eating well. Psychotropic PRNs required in the past 24 hours: none. Start Time: 15:20 Stop Time: 15:40 Mental Status Exam Vitals: Last Vital Signs Temp 98.4 F 02/11/17 16:00 Pulse 82 02/11/17 16:00 Resp 16 02/11/17 16:00 BP 111/54 02/11/17 16:00 Pulse Ox 99 02/11/17 16:00 Height: 1.63 m Weight: 52.9 kg - Mental Status Exam Muscle Strength/Tone: Normal Dressing: Casual Grooming: Fair Attitude: Cooperative Motor Activity: Retardation Eye Contact: Fair Speech: Slowed Volume: Soft Rhythm: Appropriate Rhythm Orientation: Oriented X4 Mood: Other ("better" - affect restricted but improved from previous, partly due to napping prior to interview) Rate of Thoughts: Delayed Thought Organization: [place] Associations: Intact Abstract Reasoning: Poor abstract reasoning Computation: Intact Thought Content: Other (no abnormal thought content elicited) Perception/Psychotic: Perception Normal Language: Naming Impaired Fund of Knowledge: Poor fund of knowledge Memory: Poor-immediate Suicidal Ideation: Denies, Intermittent Homicidal Ideation: Denies Insight: Limited Judgement: Limited Impulse Control: Fair - Laboratory Result Diagrams: 02/09/17 07:11 02/09/17 07:11 Assessment and Plan (1) MDD (major depressive disorder), recurrent episode, severe Qualifiers: Psychotic features: without psychotic features Qualified Code(s): F33.2 - Major depressive disorder, recurrent severe without psychotic features Current visit: Yes Status: Acute (2) Major neurocognitive disorder Problem details: possible vascular etiology, without behavioral disturbance, mild to moderate Current visit: Yes Status: Acute Hospital Course Summary Disclaimer: The visit summary below is not to be considered part of the above Progress Note. Hospital Course: 02/04/17- initial admission consult Impression Hyponatremia-present on admission, sodium 128 Major depressive disorder Neurocognitive Disorder Anemia HTN Seizure disorder Hx TIA/CVA Mesenteric artery insufficiency Plan Agree with admission to [facility] for further psychiatric evaluation and treatment Place fluid restriction of 1500ML a day given hyponatremia. POA- 128 Continue on Plavix given recent celiac stent placement. Continue on Keppra twice a day given history of seizure disorder. She does report chronic nausea, Zofran available as needed. Will monitor blood pressure carefully. Admission laboratory studies reviewed, Will follow routine chemistry panels to evaluate hyponatremia. Hospital services will continue to follow patient medically manage her existing comorbidities. At time of discharge medical care will return [place] 02/04/17 17:57 Remains depressed. melatonin at HS 02/05/17 19:22 D/C Zoloft. Remeron 15mg PO QHS 02/06/17 Na improved to 130. Add Dulcolax daily per pt request (takes at home). Start Reglan 5 mg ACHS to see if this helps abdominal discomfort and chronic nausea - monitor closely for serotonin syndrome (on Zoloft [thought just dc'd] and Haldol PRN [has not received any doses yet]) and EPS. Could also consider trial of a PPI. Start Flonase for allergies & cough. Continue Plavix + statin for hx of stroke. Dr. Reed's notes reviewed - Zoloft dc'd and Remeron initiated. 02/06/17 18:46 Slightly improved. Continue current care 02/07/17 12:25 Improving. Continue current care 02/08/17 12:21 Continues to improve. Continue current care 02/09/17 21:25 Continues to improve. Continue current care 02/10/17 17:12 Near back to baseline. SW to start working toward D/C 02/11/17 Psych: Patient doing well on current regimen - will discharge to [facility] on 02/12.
[2017-02-11] MEDS: MIRTAZAPINE 15 MG TABLET PO SCH (20:07)
[2017-02-11] MEDS: LOVASTATIN 40 MG TABLET PO SCH (20:07)
[2017-02-11] MEDS: MELATONIN 5 MG TABLET PO SCH (20:07)
--- NOTE | 2017-02-11 20:09 | Extended Care Facility Orders ---
Admission Orders Admit to:: Longterm Allergies/Adverse Reactions: Allergies amoxicillin Allergy (Verified 02/03/17 11:31) codeine Allergy (Verified 02/03/17 11:32) promethazine Allergy (Verified 02/03/17 11:32) Admitting Diagnosis: Major depressive disorder, severe recurrent Admitting Physician: Nelsy Reed MD Attending Physician: Nelsy Reed MD Code Status: Do Not Resuscitate Anticiapted Length of Stay: greater than 30 days Rehab Potential: fair Rehab Prognosis: fair Diet: 02/03/17 Lunch Regular Diet [DIET] Diet Modifications: see Cardex note Fluid Restriction: FR 2000ML May use Facility Protocol or Standing Orders: Yes May have flu vaccine: Yes Evaluations/Treatment: Psychiatric, as needed Longterm Certification: I certify that SNF services are required to be given on an Inpatient basis because of the patients need for long term care on a continuing basis for the condition(s) for which he/she received inpatient hospital services prior to his/her transfer to the SNF. SNF inpatient care is necessary for the following reasons Indication for Longterm: Med Admininistration - Additional Information Referrals: [facility] [Provider Group] (Dr. Seb Guardado on 02/19/17 at 11:00 am for Hosp. follow-up. . Family declines Mental Health follow-up. PCP will manage meds.)
[2017-02-12] MEDS: Bisacodyl EC TAB 5 MG TABLET PO SCH (09:00)
[2017-02-12] MEDS: LEVETIRACETAM 500 MG TABLET PO SCH (09:00)
[2017-02-12] MEDS: CLOPIDOGREL 75 MG TABLET PO SCH (09:00)
[2017-02-12] MEDS: POLYETHYL GLYCOL 3350 17gm PACKET PO SCH (09:00)
[2017-02-12] MEDS: METOCLOPRAMIDE 5mg TABLET PO SCH ×2 (09:00→11:30)
[2017-02-12] MEDS: FLUTICASONE NASAL SPRAY 50mcg EA NOSTRIL SCH (09:00)
[2017-02-12 10:10] VITALS: BP 122/56; PULSE 75; RESP 16; TEMP 97.8; O2SAT 98
== END 2017-02-12 13:15 | DRG 885 ==
LOC: GEN 11:00
PROVIDERS: ADMIT Psychiatry & Neurology Psychiatry; ATTEND Psychiatry & Neurology Psychiatry